=== PATIENT | female | born 1945 | race Caucasian/White ===

== ENCOUNTER → 2017-08-17 | Outpatient (CLI) | payer BC ==
[~2017-08-17] MED LIST: ASPEC81 PO; LISI-461 PO; MULT-506 PO; OMEG10007 PO; SIMV20TA2 PO; TRAM-10 PO
--- NOTE | 2017-08-17 14:59 | MAMMOGRAPHY REPORT ---
BILATERAL DIGITAL SCREENING MAMMOGRAM TOMOSYNTHESIS WITH CAD: 08/17/2017 CLINICAL HISTORY: Routine screening. Patient has no complaints. TECHNIQUE: Breast tomosynthesis in addition to standard 2D mammography was performed. Current study was also evaluated with a Computer Aided Detection (CAD) system. COMPARISON: Comparison is made to exams dated: 05/31/2016 mammogram, 05/04/2015 mammogram, 02/12/2014 ultrasound, 02/12/2014 mammogram, 02/02/2014 mammogram, and 11/12/2012 mammogram - . BREAST COMPOSITION: The tissue of both breasts is heterogeneously dense, which may obscure small mas ses. FINDINGS: No suspicious masses, calcifications, or areas of architectural distortion are noted in ei ther breast. There has been no significant interval change compared to prior exams. Scattered bilater al benign-appearing calcifications are not significantly changed. IMPRESSION: ACR BI-RADS CATEGORY 2: BENIGN There is no mammographic evidence of malignancy. A 1 year screening mammogram is recommended. The pa tient will receive written notification of the results. Approximately 10% of breast cancers are not detected with mammography. A negative mammographic report should not delay biopsy if a clinically suggestive mass is present. Ashwini Thompson M.D. /:08/17/2017 14:20:51 Cad Drafter: Toshia MOSES)(Sirena), letter sent: Normal 1/2 BI-RADS Code: ACR BI-RADS Category 2: Benign
== END | disposition home or self-care (01) ==
LOC: C.MAMM 13:27
PROVIDERS: ATTEND Nurse Practitioner
DX: Z12.31 Encounter for screening mammogram for malignant neoplasm of breast (principal)

== ENCOUNTER → 2017-09-22 | Outpatient (CLI) | payer BC ==
[2017-09-22 10:53] LABS: HEMATOCRIT 45.9 % (37-47); HEMOGLOBIN 14.8 g/dL (12.0-16.0); MEAN CELL VOLUME 94.4 fL (80-100); MEAN CORPUSCULAR HEMOGLOBIN 30.5 pg (25-34); MEAN CORPUSCULAR HGB CONC 32.2 g/dl (32-36); MEAN PLATELET VOLUME 10.5 fL (7.4-10.4); PLATELET COUNT 204 K/uL (130-400); RED CELL DISTRIBUTION WIDTH CV 13.3 % (11.5-14.5); RED CELL DISTRIBUTION WIDTH SD 45.9 fL (36.4-46.3); WHITE BLOOD COUNT 4.84 K/uL (4.8-10.8)
[2017-09-22 11:07] LABS: HEMOGLOBIN A1C 5.5 % (4.5-5.6)
[2017-09-22 11:21] LABS: ALT/SGPT 39 U/L (12-78); AST/SGOT 24 U/L (15-37); BLOOD UREA NITROGEN 15 mg/dl (7-18); CALCIUM 9.3 mg/dl (8.5-10.1); CARBON DIOXIDE 30 mmol/L (21-32); CREATININE 0.76 mg/dl (0.60-1.20); GLUCOSE 83 mg/dl (70-99); POTASSIUM 3.7 mmol/L (3.5-5.1); SODIUM 142 mmol/L (136-145)
[2017-09-22 11:23] LABS: ALKALINE PHOSPHATASE 70 U/L (45-117); CHOLESTEROL 157 mg/dl (0-200); LDL CHOLESTEROL CALCULATED 71 mg/dl; TOTAL PROTEIN 7.7 gm/dl (6.4-8.2)
== END | disposition home or self-care (01) ==
LOC: C.LAB 10:00
PROVIDERS: ATTEND Nurse Practitioner
DX: E78.00 Pure hypercholesterolemia, unspecified (principal); R73.01 Impaired fasting glucose; I10 Essential (primary) hypertension; E55.9 Vitamin D deficiency, unspecified

== ENCOUNTER 2020-07-29 09:52 | Inpatient (IN) ==
[2020-07-29] MEDS ORDERED: ONDANSETRON 4 MG OD TAB PO STA (10:09)
[2020-07-29] MEDS ORDERED: oxyCODONE HCL IR 5 MG TAB (IMMEDIATE RELEASE) PO STA (10:09)
--- NOTE | 2020-07-29 10:14 | Emergency Department Note ---
Impression & Plan Compression fx, thoracic spine, High serum chloride, Acute hypernatremia ED Provider Note NAME: JASEN PATRICK AGE: 75 SEX: F : 1945 ARRIVES VIA: Walk-In INFORMANT: Patient ED PROVIDER(S): Gavin Gaytan DO CHIEF COMPLAINT: Mid back pain HPI: Patient is a 75-year-old female who presents to the ER status post fall 1.5 weeks ago. Patient was walking with her walker and her feet got tripped up and she fell backwards and hit her back. She denies any head or neck pain. No loss consciousness. She denies any blood thinners. She denies any new weakness or numbness in her arms or legs. No chest pain or shortness of breath. She has had no weakness or numbness. She always has pain in her right hip and notes that it is a little bit worse. The back pain is worse with movement. Improves with rest. Currently pain is 5 out of 10 and stabbing. Does not radiate anywhere. She is able to move her bowels and urinate without difficulty. She has been taking some T3s for this pain. ROS: See above HPI for pertinent positives & negatives. A total of 10 systems reviewed and were otherwise negative. PAST MEDICAL HISTORY:See Below PAST SURGICAL HISTORY:See Below FAMILY HISTORY:See Below SOCIAL HISTORY:See Below HOME MEDICATIONS:See Below ALLERGIES:See Below VITALS:See Below PHYSICAL EXAMINATION: GENERAL: Sitting up in bed, alert, well appearing for stated age HEAD: NC/AT EYE EXAM: normal conjunctiva. PERRL and EOM's grossly intact. OROPHARYNX: no exudate, no erythema, lips, buccal mucosa, and tongue normal and mucous membranes are moist NECK: supple, no nuchal rigidity, no adenopathy, non-tender LUNGS: Clear to auscultation. Normal chest wall mechanics HEART: no murmurs, S1 normal and S2 normal ABDOMEN: abdomen soft, non-tender, normo-active bowel sounds, no masses, no rebound or guarding. BACK: Back is symmetrical on inspection and there is no deformity, midline Tenderness at about T8-T10 UPPER EXTREMITIES: upper extremities are grossly normal. LOWER EXTREMITIES: Flexion-extension of bilateral hips knees and ankles intact. Gross sensation intact. NEURO EXAM: Normal sensorium, cranial nerves II-XII grossly intact, normal spee ch, no gross weakness of arms, no gross weakness of legs. MEDICAL DECISION MAKING: Patient is a 75-year-old female who presents the ER for mechanical fall about 1.5 weeks ago. Severe pain in the lower thoracic region. CTs of the thoracic and lumbar spine were obtained and showed compression fracture with retropulsion. She had no head or neck pain. Discussed with Dr. Reynoso from orthopedic spine. Agreed with admission and further evaluation. Patient was updated bedside. Discussed with the hospitalist after obtaining blood work which is a no significant leukocytosis or anemia. BMP with a slightly elevated sodium and chloride slightly elevated at 115. LFTs bilirubin was unremarkable. Covid was negative. Patient was updated bedside admitted for further work-up. Triage Nursing notes reviewed. Limited review of prior medical records performed Vital Signs: reviewed and remarkable for HTN Differential diagnosis: Differential diagnoses include major intracranial, cervical, spinal, thoracic, abdominal, pelvic and neurologic injury. Fracture, contusion, sprain, strain, laceration, abrasions included as well. ER treatment provided: See below Diagnostics interpreted by me: ECG: none Laboratory studies: As stated above in MDM Imaging studies: CT of the thoracic and lumbar spine show compression fracture at T12 with 4 mm retropulsion Consultation(s): Discussed with Dr. Reynoso from orthopedic spine who recommended admission for further work-up Discussed with hospitalist for further evaluation Procedures: none Critical Care: None Past Med/Surg History Medical History (Updated 07/29/20 @ 15:38 by Gavin Gaytan DO) Fall Hypercholesterolemia Hypertension Impaired fasting glucose Mass of soft tissue Parkinsonism Rib pain Right hip pain Thoracic compression fracture Surgical History History of appendectomy History of arthroplasty of left ankle UNSPECIFIED ANKLE History of total abdominal hysterectomy and bilateral salpingo-oophorectomy Family History Sister Uterine cancer Mother Breast cancer Diabetes Father Hx of CABG Denies family history of Ovarian cancer Prostate cancer Myocardial infarction Colorectal cancer Social History Smoking Status: Never smoker Hx Alcohol Use: No Hx Substance Use: No 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: No Beliefs That Will Affect Care: None Current Living Situation: Spouse Feels Safe at Home: Yes caffeine: Yes Seatbelt Use: always Assistive Devices: Denture - Upper, Denture - Lower, Glasses and Walker Allergies Allergies Allergy/AdvReac Type Severity Reaction Status Date / Time morphine AdvReac Severe NAUSEA Verified 07/29/20 11:02 Fish Allergy Severe Nausea Uncoded 07/29/20 11:02 PSEUDAEPHEDRINE Allergy Severe VERY Uncoded 07/29/20 11:02 SHAKEY, JITTERY Actifed Cold/Allergy TABS AdvReac Severe "MAKES ME Uncoded 07/29/20 11:02 CRAZY" Home Meds Home Medications Medication Instructions Recorded Confirmed coenzyme Q10 30 mg capsule 30 mg PO DAILY 12/04/18 07/29/20 multivitamin 1 tab PO DAILY 12/04/18 07/29/20 vitamin B complex 1 tab PO DAILY 12/04/18 07/29/20 ascorbic acid (vitamin C) 500 mg 500 mg PO DAILY tab 01/29/19 07/29/20 tablet cholecalciferol (vitamin D3) 50 2,000 units PO DAILY cap 01/29/19 07/29/20 mcg (2,000 unit) capsule Previous Rx's Medication Instructions Recorded atorvastatin 10 mg tablet 10 mg PO HS #90 tab 06/23/19 escitalopram oxalate 5 mg tablet 5 mg PO HS #30 tab 02/02/20 meloxicam 7.5 mg tablet 7.5 mg PO DAILY PRN #30 tab 03/17/20 carbidopa 25 mg-levodopa 100 mg 1 tab PO TID #90 tab 05/07/20 tablet mirabegron 25 mg tablet,extended 25 mg PO DAILY #90 tab 07/16/20 release 24 hr acetaminophen 300 mg-codeine 30 mg See Rx Instructions PO TID PRN #20 07/21/20 tablet tab ibandronate 150 mg tablet 150 mg PO .COMPLEX #3 tab 07/21/20 Results & Data (ED) Vital Signs Vital Signs - 24 hr 07/29/20 09:57 07/29/20 11:37 07/29/20 13:13 Temperature 36.6 C Temperature Source Oral Pulse Rate 89 Pulse Rate [Left Finger] 87 82 Respiratory Rate 20 20 20 Respiratory Effort / Characteristics Non-Labored Respiratory Depth Normal Blood Pressure 155/90 H Blood Pressure [Right Arm] 174/102 H 153/96 H Blood Pressure Mean 111 Blood Pressure Mean [Right Arm] 126 115 Blood Pressure Position Sitting Pulse Oximetry 97 95 92 Oxygen Delivery Method Room Air Sepsis Recent Fever Within 48 Hours No Sepsis New/Unexplained Change in Mental Status No Sepsis Action Taken by Nursing No Action Required Laboratory Data Result diagrams: 07/29/20 13:11 07/29/20 13:11 Lab Results 07/29/20 07/29/20 07/29/20 Range/Units 13:11 13:11 13:11 WBC 6.16 (4.8-10.8) K/uL RBC 4.19 L (4.2-5.4) M/uL Hgb 12.2 (12.0-16.0) g/dL Hct 38.2 (37-47) % MCV 91.2 (80-100) fL MCH 29.1 (25-34) pg MCHC 31.9 L (32-36) g/dL RDW Std Deviation 47.3 H (36.4-46.3) fL RDW Coeff of Griselda 14.3 (11.5-14.5) % Plt Count 282 (130-400) K/uL MPV 10.0 (7.4-10.4) fL Immature Gran % (Auto) 0.2 % Neut % (Auto) 71.6 % Lymph % (Auto) 17.2 % [place] % (Auto) 8.4 % Eos % (Auto) 1.8 % Baso % (Auto) 0.8 % Neut # (Auto) 4.41 (1.4-6.5) K/uL Lymph # (Auto) 1.06 L (1.2-3.4) K/uL [place] # (Auto) 0.52 (0.11-0.59) K/uL Eos # (Auto) 0.11 (0-0.5) K/uL Baso # (Auto) 0.05 (0-0.2) K/uL Immature Gran # (Auto) 0.01 (0.00-0.02) K/uL Sodium 147 H (136-145) mmol/L Potassium 3.7 (3.5-5.1) mmol/L Chloride 115 H (98-107) mmol/L Carbon Dioxide 29 (21-32) mmol/L Anion Gap 3.0 (3-11) BUN 15 (7-18) mg/dl Creatinine 0.63 (0.6-1.2) mg/dl Est Cr Clr Drug Dosing Not Reportable Est GFR ( Amer) 102.4 Est GFR (Non-Af Amer) 88.4 BUN/Creatinine Ratio 23.8 H (10-20) Glucose 93 (70-99) mg/dl Calcium 8.8 (8.5-10.1) mg/dl Total Bilirubin 0.6 (0.2-1) mg/dl AST 16 (15-37) U/L ALT 8 L (12-78) U/L Alkaline Phosphatase 131 H (45-117) U/L Total Protein 7.2 (6.4-8.2) gm/dl Albumin 3.4 (3.4-5.0) gm/dl Globulin 3.8 (2.5-4.0) gm/dl Albumin/Globulin Ratio 0.9 (0.9-2) COVID-19 Eval [facility] SARS-CoV-2, RNA, NAAT (NEGATIVE) 07/29/20 Range/Units 13:11 WBC (4.8-10.8) K/uL RBC (4.2-5.4) M/uL Hgb (12.0-16.0) g/dL Hct (37-47) % MCV (80-100) fL MCH (25-34) pg MCHC (32-36) g/dL RDW Std Deviation (36.4-46.3) fL RDW Coeff of Griselda (11.5-14.5) % Plt Count (130-400) K/uL MPV (7.4-10.4) fL Immature Gran % (Auto) % Neut % (Auto) % Lymph % (Auto) % [place] % (Auto) % Eos % (Auto) % Baso % (Auto) % Neut # (Auto) (1.4-6.5) K/uL Lymph # (Auto) (1.2-3.4) K/uL [place] # (Auto) (0.11-0.59) K/uL Eos # (Auto) (0-0.5) K/uL Baso # (Auto) (0-0.2) K/uL Immature Gran # (Auto) (0.00-0.02) K/uL Sodium (136-145) mmol/L Potassium (3.5-5.1) mmol/L Chloride (98-107) mmol/L Carbon Dioxide (21-32) mmol/L Anion Gap (3-11) BUN (7-18) mg/dl Creatinine (0.6-1.2) mg/dl Est Cr Clr Drug Dosing Est GFR ( Amer) Est GFR (Non-Af Amer) BUN/Creatinine Ratio (10-20) Glucose (70-99) mg/dl Calcium (8.5-10.1) mg/dl Total Bilirubin (0.2-1) mg/dl AST (15-37) U/L ALT (12-78) U/L Alkaline Phosphatase (45-117) U/L Total Protein (6.4-8.2) gm/dl Albumin (3.4-5.0) gm/dl Globulin (2.5-4.0) gm/dl Albumin/Globulin Ratio (0.9-2) COVID-19 Eval Order SARS-CoV-2, RNA, NAAT NEGATIVE (NEGATIVE) Administered Medications Carbidopa/Levodopa (Carbidopa/Levodopa 25/100mg Tab) 1 tab PO TID ROCK Stop: 08/28/20 14:52 Last Admin: 07/29/20 15:32 Dose: 1 tab Documented by: [id number] Oxycodone/Acetaminophen (Oxycodone/Acetaminophen 5mg/325mg Tab) 1 tab PO Q4H PRN PRN Reason: Pain Stop: 08/12/20 14:52 Last Admin: 07/29/20 15:32 Dose: 1 tab Documented by: [id number] Discontinued Medications Ondansetron HCl (Ondansetron 4 Mg Od Tab) 4 mg PO NOW STA Stop: 07/29/20 10:10 Last Admin: 07/29/20 10:28 Dose: 4 mg Documented by: [id number] Oxycodone HCl (Oxycodone Hcl Ir 5 Mg Tab (Immediate Release)) 5 mg PO NOW STA Stop: 07/29/20 10:10 Last Admin: 07/29/20 10:28 Dose: 5 mg Documented by: [id number] Discharge Plan Visit Data Chief Complaint: Fall Stated Complaint: FALL 10 +DAYS AGO,RT HIP AND BACK PAIN ED Provider: Gavin Gaytan Discharge Problem: Compression fx, thoracic spine, High serum chloride, Acute hypernatremia Patient Disposition: Admitted As Inpatient Discharge Instructions Interventions: ED Discharge Assessment Last Done: 07/29/20 14:35 Discharge Problem: Compression fx, thoracic spine Qualifiers: Encounter type: initial encounter Thoracic vertebra fracture level: T12 Qualified Code(s): S22.080A - Wedge compression fracture of T11-T12 vertebra, initial encounter for closed fracture
--- NOTE | 2020-07-29 11:34 | CT Scan Report ---
CT OF THE THORACIC SPINE CLINICAL HISTORY: mid t pine pain s/p fall COMPARISON STUDY: Thoracic spine radiographs December 12, 2009. TECHNIQUE: Helical axial images of the thoracic spine were obtained. Sagittal and coronal reconstru ctions were viewed. Automated exposure control was utilized for the study. A dose lowering techniqu e was utilized adhering to the principles of ALARA. FINDINGS: There is mild dextroscoliosis of the thoracic spine. Note is made of an acute severe compre ssion fracture of the T12 vertebral body. There is 80% loss of vertebral body height centrally. The p osterior vertebral body cortex is disrupted. 4 mm of retropulsion at the level of the superior endpla te is noted. This results in mild to moderate central canal narrowing. This represents a burst fractu re. There is paravertebral infiltration. Central canal and neural foramen are suboptimally assessed b y CT. No extension into the posterior elements is noted. No additional thoracic spine fractures are n oted. Otherwise, vertebral body heights are maintained. There are trace bilateral pleural effusions. Cardiomegaly is noted. A moderate sized hiatal hernia is incidentally noted. Water attenuation lesion within the upper pole the right kidney is suboptimally assessed on this unenhanced exam but favors a cyst. Please note that the lumbar spine CT will be reported separately. IMPRESSION: 1. Acute severe T12 compression fracture consistent with a burst fracture. 4 mm of retropulsion resul ts in mild to moderate central canal narrowing. Mild paravertebral infiltration. No extension into th e posterior elements. 2. No additional acute thoracic spine fractures. 3. Hiatal hernia. 4. Trace bilateral pleural effusions. ACT 112: Negative or not required by law. Electronically signed by: Mauri Quinn M.D. 07/29/2020 11:33 AM
--- NOTE | 2020-07-29 11:42 | XRay Report ---
XR hip RT 2V w pelvis CLINICAL HISTORY: Fall. COMPARISON: None FINDINGS: The sacroiliac joints and symphysis pubis are intact. There is no acute fracture within th e pelvis or hips. Complete loss of the right hip joint space is noted with extensive subchondral scle rosis and cystic change. There is mild flattening of the right femoral head. IMPRESSION: 1. No acute fracture within the pelvis or hips. 2. Severe right hip osteoarthritis with complete loss of the joint space, extensive subchondral scler osis and mild flattening of the right femoral head. ACT 112: Negative or not required by law. Electronically signed by: Mauri Quinn M.D. 07/29/2020 11:41 AM
--- NOTE | 2020-07-29 12:05 | CT Scan Report ---
CT SCAN OF THE LUMBAR SPINE WITHOUT IV CONTRAST CLINICAL HISTORY: Fall one week ago. Low back pain. COMPARISON STUDY: No priors. TECHNIQUE: CT scan of the lumbar spine is performed from the lower thoracic spine to the sacrum. Imag es are reviewed in the axial, sagittal, and coronal planes. IV contrast was not administered for this examination. A dose lowering technique was utilized adhering to the principles of ALARA. FINDINGS: The skeletal structures are osteopenic. There is no evidence of fracture or malalignment in volving the lumbar spine. There is an acute compression fracture of T12 with [id number] loss of height and fragments retropulsed by up to 5 mm. Vertebral body height is maintained throughout the l umbar spine. There is 9 mm of anterolisthesis at L4-L5 and 7 mm anterolisthesis at L5-S1. Alignment i s otherwise maintained. There is moderate lumbar levocurvature centered at L3. Anterior and lateral m arginal osteophytes are seen throughout. The transverse and spinous processes appear intact. A left-s ided pars defect is noted at L5. No lytic or blastic lesion is seen. Facet arthropathy is noted in th e lower lumbar region. There is advanced disc space narrowing at L4-L5 and L5-S1 with associated endp late sclerosis. Mild to moderate disc space narrowing is seen at the remaining lumbar levels. Posteri or disc osteophyte complexes are seen at L4-L5 and L5-S1. The visualized sacrum and bony pelvis appea r maintained. There is paravertebral edema identified at T12. Fatty atrophy is noted in the paraspino us musculature. A 1 cm cyst is noted in the upper pole of the right kidney. There are small nonobstru cting right renal calculi. The abdominal aorta is normal in caliber noting moderate to advanced ather osclerotic calcification. No retroperitoneal lymphadenopathy is seen. There is a 9 mm right renal art jef aneurysm seen on image #64. IMPRESSION: 1. There is no evidence of fracture or malalignment involving the lumbar spine. 2. There is an acute compression fracture of T12 with [id number] loss of height, retropulsed fr agments, and associated paravertebral edema. 3. Osteopenia with spondylotic change and scoliosis as above. 4. Right-sided nephrolithiasis. 5. 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 ACT 112: Negative or not required by law. Dictated: 07/29/2020 11:21 AM Transcribed: 07/29/2020 11:34 AM Dilia [id number] [email or web address] Electronically signed by: Ulysses Walker M.D. 07/29/2020 12:04 PM
--- NOTE | 2020-07-29 13:09 | History & Physical Report ---
Date of Service July 29, 2020 Assessment & Plan (1) Thoracic compression fracture: Ortho consult - tiered pain control, currently pain 3/10 - bedrest - SCD for VTE until surgical evaluation/plan completed - No radiculopathy or myopathy symptoms. (2) Fall: - PT/OT continue to work with patient when cleared from surgical perspective - Rehab possible. (3) Osteoporosis: Bone density test in Jul - Patient placed back on Boniva, appears to be recenly this month following her most recent dexa scan. - Patient reports compliance - Hydroxy vit d. level pending - continue Boniva - Fall risk protocol - asist with ambulation (4) Right hip pain: Chronic right hip pain. Patient with Physical Therapy as outpatient and has been improving per review. - pain with getting from sitting to standing - has gotten injections in dec 2019 and meloxicam since december - hold meloxicam currently until surgical evaluation completed- hold during pre/intra/post op phase - tiered pain control (5) Vitamin D deficiency: As above, check level and continu replacment - no acute needs (6) Hypercholesterolemia: No acute needs on admission - recheck fasting level in the morning - continue low dose statin, change if needed upon discharge or if risk stratification changes. (7) Parkinsonism: Recently diagnosed in May via neurology, was referred for gait abnormality and evaluation (05/07/2020) - Patient placed on levodopa 25/100 tid. - Patient feels that this is helping her, but at times is unsure because her balance is still off - PT/OT evaluation continue with rehab - Cognitively is very sharp and recall appears to be good, response time is slow. 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 Follow as outpatient with PCP. No acute intervention at this time. History of Present Illness Primary Care Provider: JESSICA Cummings Richa is a 74-year-old female with significant history of chronich rt. hip pain, DJD with osteoperosis and osteoarthritis, parkinson disease, hld, and glucose intolerance. Patient reports to the emergency room today for worsening of her back pain. The patient injured her back 1.5 weeks ago when she was attempting to go from the couch to the bathroom, "got her feet tangled in her walker" and fell backwards. She was prescribed T3 ~late last week for her pain by her PCP. This has helped with her pain but for the past two days, the pain has become "unbearable." The pain is mid to low back, constant stabbing pain. The pain is associated with some tightness and spasm, but without/reported r adiculopathic symptoms. Patient does have chronic right hip pain for the past 2-3 years and says that the hip pain is her normal pain. Patient is enrolled in physical therapy and was being evaluated for hip surgery per her PCP notes. Patient will be admitted for pain control, orthopaedics consult, PT/OT and continued rehab coordination upon discharge. I have spoken with the patient's daughter Kendra as she was on the phone with her during my examination. She would like to be updated once patient is evaluated by orthopaedics for planning. Allergies Allergy/AdvReac Type Severity Reaction Status Date / Time morphine AdvReac Severe NAUSEA Verified 07/29/20 11:02 Fish Allergy Severe Nausea Uncoded 07/29/20 11:02 PSEUDAEPHEDRINE Allergy Severe VERY Uncoded 07/29/20 11:02 SHAKEY, JITTERY Actifed Cold/Allergy TABS AdvReac Severe "MAKES ME Uncoded 07/29/20 11:02 CRAZY" Home Medications Medication Instructions Recorded Confirmed Type coenzyme Q10 30 mg capsule 30 mg PO DAILY 12/04/18 07/29/20 History multivitamin 1 tab PO DAILY 12/04/18 07/29/20 History vitamin B complex 1 tab PO DAILY 12/04/18 07/29/20 History ascorbic acid (vitamin C) 500 mg 500 mg PO DAILY tab 01/29/19 07/29/20 History tablet cholecalciferol (vitamin D3) 50 2,000 units PO DAILY cap 01/29/19 07/29/20 History mcg (2,000 unit) capsule atorvastatin 10 mg tablet 10 mg PO HS #90 tab 06/23/19 07/29/20 Rx escitalopram oxalate 5 mg tablet 5 mg PO HS #30 tab 02/02/20 07/29/20 Rx meloxicam 7.5 mg tablet 7.5 mg PO DAILY PRN #30 tab 03/17/20 07/29/20 Rx carbidopa 25 mg-levodopa 100 mg 1 tab PO TID #90 tab 05/07/20 07/29/20 Rx tablet mirabegron 25 mg tablet,extended 25 mg PO DAILY #90 tab 07/16/20 07/29/20 Rx release 24 hr acetaminophen 300 mg-codeine 30 mg See Rx Instructions PO TID PRN #20 07/21/20 07/29/20 Rx tablet tab ibandronate 150 mg tablet 150 mg PO .COMPLEX #3 tab 07/21/20 07/29/20 Rx Past Med/Surg History Medical History Fall Hypercholesterolemia Hypertension Impaired fasting glucose Mass of soft tissue Parkinsonism Rib pain Right hip pain Thoracic compression fracture Surgical History History of appendectomy History of arthroplasty of left ankle UNSPECIFIED ANKLE History of total abdominal hysterectomy and bilateral salpingo-oophorectomy Family History Sister Uterine cancer Mother Breast cancer Diabetes Father Hx of CABG Denies family history of Ovarian cancer Prostate cancer Myocardial infarction Colorectal cancer Social History Smoking Status: Never smoker Hx Alcohol Use: No Hx Substance Use: No Preferred Language: Korean Communication Ability: Effective Specialty Person Required: No Beliefs That Will Affect Care: None marital status: Current Living Situation: Spouse Feels Safe at Home: Yes caffeine: Yes Seatbelt Use: always Assistive Devices: Denture - Upper, Denture - Lower and Glasses Review of Systems Review of Systems: REVIEW OF SYSTEMS: Constitutional: No fever, sweats or chills Eyes: No diplopia, no worsening or blurred vision ENT: wears glasses, normal hearing, no trouble swallowing Respiratory: No cough, sputum, dyspnea at rest or on exertion Cardiovascular: No chest pain, tightness or palpitations Abdomen: No pain, nausea, vomiting, diarrhea or constipation Musculoskeletal: (+) hip and back pain, No calf pain, swelling Neurologic; (+) weakness and tremors balance problems, No numbness/tingling Psychiatric: No anxiety or depression Skin: No rash or itch Physical Exam Physical Exam: PHYSICAL EXAM: General: awake, alert, no apparent distress, slow in responses and movements. Head: Normocephalic, atraumatic, no lacerations or pain ENT: PERRLA, EOMI, no pharyngeal exudate, mucous membranes moist Neuro: AAO x 3, speech clear and appropriate, strength intact bilaterally 5/5, sensation and temperature intact and equal all extremities, no pronator drift. no pain with straight leg raise. full ROM of neck and hips. Flexion and extension of spine not performed. Babinski normal, no urine retention or incontinence. Chest: equal rise and fall of the chest, no accessory muscle use, no heaves or thrills, Clear to auscultation, on room air, Cardiac: Regular rate and rhythm, skin warm dry, cap refill <3 seconds, peripheral pulses +2 no JVD, no murmur, no JVD, trace edema lower extremities GI: NABS x 4 quadrants, soft, nontender to palpation, no rebound, guarding or tenderness : Spontaneously voiding Extremities: Normal inspection, no peripheral edema or erythema, calfs nontender to palpation Psych: Normal mood and affect Skin: no rash or erythema Results & Data Results & Data ([facility]) Vital Signs (Past 12 Hours) Vital Signs Temp Pulse Pulse Resp BP BP Pulse Ox 07/29/20 11:37 87 20 174/102 H 95 07/29/20 09:57 36.6 C 89 20 155/90 H 97 Laboratory Results Abnormal lab results 07/29/20 Range/Units 13:11 RBC 4.19 L (4.2-5.4) M/uL MCHC 31.9 L (32-36) g/dL RDW Std Deviation 47.3 H (36.4-46.3) fL Lymph # (Auto) 1.06 L (1.2-3.4) K/uL Diagnostic Findings CT OF THE THORACIC SPINE CLINICAL HISTORY: mid t pine pain s/p fall COMPARISON STUDY: Thoracic spine radiographs December 12, 2009. TECHNIQUE: Helical axial images of the thoracic spine were obtained. Sagittal and coronal reconstructions were viewed. Automated exposure control was utilized for the study. A dose lowering technique was utilized adhering to the principles of ALARA. FINDINGS: There is mild dextroscoliosis of the thoracic spine. Note is made of an acute severe compression fracture of the T12 vertebral body. There is 80% loss of vertebral body height centrally. The posterior vertebral body cortex is disrupted. 4 mm of retropulsion at the level of the superior endplate is noted. This results in mild to moderate central canal narrowing. This represents a burst fracture. There is paravertebral infiltration. Central canal and neural foramen are suboptimally assessed by CT. No extension into the posterior elements is noted. No additional thoracic spine fractures are noted. Otherwise, vertebral body heights are maintained. There are trace bilateral pleural effusions. Cardiomegaly is noted. A moderate sized hiatal hernia is incidentally noted. Water attenuation lesion within the upper pole the right kidney is suboptimally assessed on this unenhanced exam but favors a cyst. Please note that the lumbar spine CT will be reported separately. IMPRESSION: 1. Acute severe T12 compression fracture consistent with a burst fracture. 4 mm of retropulsion results in mild to moderate central canal narrowing. Mild paravertebral infiltration. No extension into the posterior elements. 2. No additional acute thoracic spine fractures. 3. Hiatal hernia. 4. Trace bilateral pleural effusions. CT SCAN OF THE LUMBAR SPINE WITHOUT IV CONTRAST CLINICAL HISTORY: Fall one week ago. Low back pain. COMPARISON STUDY: No priors. TECHNIQUE: CT scan of the lumbar spine is performed from the lower thoracic spine to the sacrum. Images are reviewed in the axial, sagittal, and coronal p lanes. IV contrast was not administered for this examination. A dose lowering technique was utilized adhering to the principles of ALARA. FINDINGS: The skeletal structures are osteopenic. There is no evidence of fracture or malalignment involving the lumbar spine. There is an acute compression fracture of T12 with [id number] loss of height and fragments retropulsed by up to 5 mm. Vertebral body height is maintained throughout the lumbar spine. There is 9 mm of anterolisthesis at L4-L5 and 7 mm anterolisthesis at L5-S1. Alignment is otherwise maintained. There is moderate lumbar levocurva ture centered at L3. Anterior and lateral marginal osteophytes are seen throughout. The transverse and spinous processes appear intact. A left-sided pars defect is noted at L5. No lytic or blastic lesion is seen. Facet arthropathy is noted in the lower lumbar region. There is advanced disc space narrowing at L4-L5 and L5-S1 with associated endplate sclerosis. Mild to moderate disc space narrowing is seen at the remaining lumbar levels. Posterior disc osteophyte complexes are seen at L4-L5 and L5-S1. The visualized sacrum and bony pelvis appear maintained. There is paravertebral edema identified at T12. Fatty atrophy is noted in the paraspinous musculature. A 1 cm cyst is noted in the upper pole of the right kidney. There are small nonobstructing right renal calculi. The abdominal aorta is normal in caliber noting moderate to advanced atherosclerotic calcification. No retroperitoneal lymphadenopathy is seen. There is a 9 mm right renal artery aneurysm seen on image #64. IMPRESSION: 1. There is no evidence of fracture or malalignment involving the lumbar spine. 2. There is an acute compression fracture of T12 with [id number] loss of height, retropulsed fragments, and associated paravertebral edema. 3. Osteopenia with spondylotic change and scoliosis as above. 4. Right-sided nephrolithiasis. 5. 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 XR hip RT 2V w pelvis CLINICAL HISTORY: Fall. COMPARISON: None FINDINGS: The sacroiliac joints and symphysis pubis are intact. There is no acute fracture within the pelvis or hips. Complete loss of the right hip joint space is noted with extensive subchondral sclerosis and cystic change. There is mild flattening of the right femoral head. IMPRESSION: 1. No acute fracture within the pelvis or hips. 2. Severe right hip osteoarthritis with complete loss of the joint space, extensive subchondral sclerosis and mild flattening of the right femoral head. Medications Administered Discontinued Medications Ondansetron HCl (Ondansetron 4 Mg Od Tab) 4 mg PO NOW STA Stop: 07/29/20 10:10 Last Admin: 07/29/20 10:28 Dose: 4 mg Documented by: [id number] Oxycodone HCl (Oxycodone Hcl Ir 5 Mg Tab (Immediate Release)) 5 mg PO NOW STA Stop: 07/29/20 10:10 Last Admin: 07/29/20 10:28 Dose: 5 mg Documented by: [id number] ECG Additional Comments: Ordered on admission. Code Status & VTE Plan Code Status SCD Full code Supervising Physician Co-Signing Physician Notes Attending Attestation & Admission Note: Pt seen and examined, chart reviewed, care plan d/w JESSICA Tello Fritzkathyamicah. I agree w/ the aleman components of his documentation. 75yo female with recently dx parkinson's disease, osteoporosis, and HTN presenting with severe back pain x 1-2 weeks after suffering minor fall at home. Also with chronic right hip pain. Upon presentation to the ER today imaging showed severe T12 compression/burst fracture. During my assessment she was resting comfortably. She was modestly confused, asking when she was leaving to go home tonight. PMH/PSH/allergies/meds/sochx/famhx - reviewed VSS, afebrile gen - NAD, mildly confused mouth - MM dry skin - poor turgor heart - RRR, s1 s2 lungs - CTA b/l abd - modestly distended, BS+, NT, no HSM ext - no edema back - tender lower thoracic region segments to palpation neuro - strength hip flexion and ankle dorsiflexion/plantarflexion 5/5 b/l; slight foot drop, however, b/l? labs reviewed Na 147 imaging reviewed A/P: 1. T12 compression/burst fracture - agree w/ plan outlined by Mr Swan; add k-pad heat; add lidoderms -25 vit D level wnl -ortho/spine consultation; nonoperative vs operative management? -pain control no signs of neurological compromise on exam despite severity of this fracture 2. hypernatremia - patient admitted to not drinking well last few days because of pain. Start hypotonic fluids and repeat BMP am. 3. PD - cont sinemet. Soto Lopez MD PG Care Time/CCT Total # of Minutes Spent Total Time Spent with Patient: Total time spent is greater than 50% in coordination of care (as documented) at patient's floor/unit and/or counseling patient: Coding Level of Care Code 33368 Initial Inpt Care Lvl 3 Diagnoses Thoracic compression fracture S22.000A Fall W19.XXXA Encounter type: initial encounter Osteoporosis M81.0 Right hip pain M25.551 Vitamin D deficiency E55.9 Hypercholesterolemia E78.00 Parkinsonism G20 Degenerative joint disease of right hip M16.11 DVT prophylaxis Z29.9 Nephrolithiasis N20.0 Renal artery aneurysm I72.2 (1) Fall Encounter type: initial encounter Qualified Code(s): W19.XXXA - Unspecified fall, initial encounter
[2020-07-29 13:22] LABS: Basophils # (auto) 0.05 K/uL (0-0.2); Basophils % (auto) 0.8 %; Eosinophils # (auto) 0.11 K/uL (0-0.5); Eosinophils % (auto) 1.8 %; Hematocrit (blood only) 38.2 % (37-47); Hemoglobin 12.2 g/dL (12.0-16.0); Immature Granulocytes # (auto) 0.01 K/uL (0.00-0.02); Immature Granulocytes % (auto) 0.2 %; Lymphocytes # (auto) 1.06 K/uL (1.2-3.4); Lymphocytes % (auto) 17.2 %; Mean Corpuscular Hemoglobin 29.1 pg (25-34); Mean Corpuscular Hgb Conc 31.9 g/dL (32-36); Mean Corpuscular Volume 91.2 fL (80-100); Monocytes # (auto) 0.52 K/uL (0.11-0.59); Monocytes % (auto) 8.4 %; Neutrophils # (auto) 4.41 K/uL (1.4-6.5); Neutrophils % (auto) 71.6 %; Platelet Count 282 K/uL (130-400); RDW Coefficient of Variation 14.3 % (11.5-14.5); RDW Standard Deviation 47.3 fL (36.4-46.3); Red Blood Count 4.19 M/uL (4.2-5.4); White Blood Count 6.16 K/uL (4.8-10.8)
[2020-07-29 13:45] LABS: Alanine Aminotransferase 8 U/L (12-78); Albumin Level 3.4 gm/dl (3.4-5.0); Aspartate Aminotransferase 16 U/L (15-37); BUN Creatinine Ratio 23.8 (10-20); Blood Urea Nitrogen 15 mg/dl (7-18); Calcium 8.8 mg/dl (8.5-10.1); Carbon Dioxide 29 mmol/L (21-32); Chloride 115 mmol/L (98-107); Est GFR (African American) 102.4; Est GFR (Non-African American) 88.4; Glucose 93 mg/dl (70-99); Potassium 3.7 mmol/L (3.5-5.1); Sodium 147 mmol/L (136-145)
[2020-07-29 13:48] LABS: Albumin Globulin Ratio 0.9 (0.9-2); Alkaline Phosphatase 131 U/L (45-117); Bilirubin,Total 0.6 mg/dl (0.2-1); Globulin 3.8 gm/dl (2.5-4.0); Total Protein 7.2 gm/dl (6.4-8.2)
[2020-07-29] MEDS ORDERED: HYDROmorphone INJ 0.5 MG/0.5 ML SYR IV PRN (14:53)
[2020-07-29] MEDS ORDERED: NON-FORMULARY MEDICATION (Ibandronate 150 mg tablet) PO SCH (14:53)
[2020-07-29] MEDS: CARBIDOPA/LEVODOPA 25/100MG TAB PO SCH ×2 (15:32→21:05)
[2020-07-29] MEDS: oxyCODONE/ACETAMINOPHEN 5mg/325mg TAB PO PRN (15:32)
--- NOTE | 2020-07-29 17:04 | Electrocardiogram Report ---
Test Reason : Blood Pressure : / mmHG Vent. Rate : 086 BPM Atrial Rate : 086 BPM P-R Int : 154 ms QRS Dur : 084 ms QT Int : 378 ms P-R-T Axes : -01 -12 -05 degrees QTc Int : 452 ms Normal sinus rhythm Voltage criteria for left ventricular hypertrophy Poor R wave progression, consider anterior NJ vs. lead placement vs. LVH Nonspecific T wave abnormality Abnormal ECG When compared with ECG of 09-JUL-2004 07:36, Nonspecific T wave abnormality now evident in Anterior leads Confirmed by Anatoly Cordero ([id number]) on 07/29/2020 5:04:01 PM Referred By: REFERRED SELF Confirmed By:Bryce Cordero
[2020-07-29] MEDS: D5W AND 1/2NSS + 20MEQ KCL 20 MEQ/1,000 ML BAG IV SCH (21:03)
[2020-07-29] MEDS: ATORVASTATIN 10 MG TAB PO SCH (21:04)
[2020-07-29] MEDS: ESCITALOPRAM OXALATE 10 MG TAB PO SCH (21:05)
[2020-07-30 06:35] LABS: Basophils # (auto) 0.02 K/uL (0-0.2); Basophils % (auto) 0.4 %; Eosinophils # (auto) 0.16 K/uL (0-0.5); Eosinophils % (auto) 2.9 %; Hematocrit (blood only) 36.7 % (37-47); Hemoglobin 11.5 g/dL (12.0-16.0); Immature Granulocytes # (auto) 0.01 K/uL (0.00-0.02); Immature Granulocytes % (auto) 0.2 %; Lymphocytes # (auto) 1.14 K/uL (1.2-3.4); Lymphocytes % (auto) 20.6 %; Mean Corpuscular Hemoglobin 28.6 pg (25-34); Mean Corpuscular Hgb Conc 31.3 g/dL (32-36); Mean Corpuscular Volume 91.3 fL (80-100); Mean Platelet Volume 10.2 fL (7.4-10.4); Monocytes # (auto) 0.47 K/uL (0.11-0.59); Monocytes % (auto) 8.5 %; Neutrophils # (auto) 3.74 K/uL (1.4-6.5); Neutrophils % (auto) 67.4 %; Platelet Count 273 K/uL (130-400); RDW Coefficient of Variation 14.2 % (11.5-14.5); RDW Standard Deviation 47.3 fL (36.4-46.3); Red Blood Count 4.02 M/uL (4.2-5.4); White Blood Count 5.54 K/uL (4.8-10.8)
[2020-07-30 06:42] LABS: Estimated Average Glucose 103 mg/dl; Hemoglobin A1C 5.2 % (4.5-5.6)
[2020-07-30 07:03] LABS: Calcium 9.1 mg/dl (8.5-10.1); Creatinine Clr Calc Pharmacy 61.8 ml/min; Est GFR (African American) 100.4; Est GFR (Non-African American) 86.6; Magnesium 2.5 mg/dl (1.8-2.4); Potassium 3.8 mmol/L (3.5-5.1)
[2020-07-30] MEDS: CARBIDOPA/LEVODOPA 25/100MG TAB PO SCH ×3 (07:44→19:49)
[2020-07-30] MEDS: CHOLECALCIFEROL 1,000 UNITS 25 MCG TAB PO SCH (07:44)
[2020-07-30] MEDS: VITAMIN B COMPLEX TAB PO SCH (07:45)
[2020-07-30] MEDS: MULTIVITAMIN TAB PO SCH (07:45)
[2020-07-30] MEDS: ASCORBIC ACID 500 MG TAB PO SCH (07:45)
[2020-07-30] MEDS: MIRABEGRON ER 25 MG TAB PO SCH (07:45)
[2020-07-30] MEDS: D5W AND 1/2NSS + 20MEQ KCL 20 MEQ/1,000 ML BAG IV SCH (09:47)
[2020-07-30] MEDS ORDERED: LORazepam 0.5 MG TAB PO STA (10:45)
--- NOTE | 2020-07-30 10:52 | Orthopedic Consultation ---
Date of Consultation July 30, 2020 Assessment & Plan (1) Thoracic compression fracture: This time she is being fitted for TLSO brace. This is reasonable when she begins ambulation and transfers. If she fails to note improvement in her symptoms over the next day or so we may consider kyphoplasty. I will follow her throughout the weekend. Present on Admission?: Yes History of Present Illness Reason for Consultation: T12 compression fracture Attending Physician: Jd Xie MD History of Present Illness This is a very pleasant 75-year-old female that presents with T12 compression fracture. Today she feels her pain is relatively well controlled though she d oes describe symptoms rating around her rib cage. She denies any leg pain. Denies any numbness and tingling at this time. Allergies Allergy/AdvReac Type Severity Reaction Status Date / Time morphine AdvReac Severe NAUSEA Verified 07/29/20 11:02 Fish Allergy Severe Nausea Uncoded 07/29/20 11:02 PSEUDAEPHEDRINE Allergy Severe VERY Uncoded 07/29/20 11:02 SHAKEY, JITTERY Actifed Cold/Allergy TABS AdvReac Severe "MAKES ME Uncoded 07/29/20 11:02 CRAZY" Home Medications Medication Instructions Recorded Confirmed Type coenzyme Q10 30 mg capsule 30 mg PO DAILY 12/04/18 07/29/20 History multivitamin 1 tab PO DAILY 12/04/18 07/29/20 History vitamin B complex 1 tab PO DAILY 12/04/18 07/29/20 History ascorbic acid (vitamin C) 500 mg 500 mg PO DAILY tab 01/29/19 07/29/20 History tablet cholecalciferol (vitamin D3) 50 2,000 units PO DAILY cap 01/29/19 07/29/20 History mcg (2,000 unit) capsule atorvastatin 10 mg tablet 10 mg PO HS #90 tab 06/23/19 07/29/20 Rx escitalopram oxalate 5 mg tablet 5 mg PO HS #30 tab 02/02/20 07/29/20 Rx meloxicam 7.5 mg tablet 7.5 mg PO DAILY PRN #30 tab 03/17/20 07/29/20 Rx carbidopa 25 mg-levodopa 100 mg 1 tab PO TID #90 tab 05/07/20 07/29/20 Rx tablet mirabegron 25 mg tablet,extended 25 mg PO DAILY #90 tab 07/16/20 07/29/20 Rx release 24 hr acetaminophen 300 mg-codeine 30 mg See Rx Instructions PO TID PRN #20 07/21/20 07/29/20 Rx tablet tab ibandronate 150 mg tablet 150 mg PO .COMPLEX #3 tab 07/21/20 07/29/20 Rx Patient History Medical History Fall Hypercholesterolemia Hypertension Impaired fasting glucose Mass of soft tissue Parkinsonism Rib pain Right hip pain Thoracic compression fracture Surgical History History of appendectomy History of arthroplasty of left ankle UNSPECIFIED ANKLE History of total abdominal hysterectomy and bilateral salpingo-oophorectomy Family History Sister Uterine cancer Mother Breast cancer Diabetes Father Hx of CABG Denies family history of Ovarian cancer Prostate cancer Myocardial infarction Colorectal cancer Social History Smoking Status: Never smoker Hx Alcohol Use: No Hx Substance Use: No Preferred Language: Malay Communication Ability: Effective 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 She is comfortable in a supine position. Results & Data ([facility]) Vital Signs (Past 12 Hours) Vital Signs Temp Pulse Resp BP BP Pulse Ox 07/30/20 10:29 106 H 22 138/71 94 07/30/20 07:02 37.1 C 84 18 136/74 94 07/29/20 23:57 36.6 C 86 16 126/76 93
--- NOTE | 2020-07-30 13:02 | Electrocardiogram Report ---
Test Reason : Blood Pressure : / mmHG Vent. Rate : 097 BPM Atrial Rate : 097 BPM P-R Int : 152 ms QRS Dur : 072 ms QT Int : 346 ms P-R-T Axes : 026 -08 008 degrees QTc Int : 439 ms Poor data quality, interpretation may be adversely affected Normal sinus rhythm Minimal voltage criteria for LVH, may be normal variant Nonspecific ST abnormality Abnormal ECG When compared with ECG of 29-JUL-2020 15:07, Minimal criteria for Anterior infarct are now Present Confirmed by Anatoly Cordero ([id number]) on 07/30/2020 1:02:48 PM Referred By: REFERRED SELF Confirmed By:Bryce Cordero
--- NOTE | 2020-07-30 14:20 | Hospitalist Progress Note ---
Date of Service July 30, 2020 Assessment & Plan (1) Thoracic compression fracture: Ortho consult -- conservative management Pain control -- added tramadol, lidocaine patch. Would avoid oxycodone given increased confusion PT/OT consults ordered and pending DVT proph -- SCDs. Added Lovenox SQ Possible rehab at discharge Vit D level low -- continue replacement Labs in AM (2) Fall: Mechanical PT/OT ordered Urine culture pending r/o UTI given confusion, although no white count or fever, dysuria reported (3) Osteoporosis: Bone density test in Jul Patient placed back on Boniva, appears to be recenly this month following her most recent dexa scan. Vit D level low 34.6 (prior 35.06 Jul 2018) Continue supplementation Fall precautions PT/OT evals with possible rehab at d/c (4) Right hip pain: Chronic right hip pain. Patient with Physical Therapy as outpatient and has been improving per review. - pain with getting from sitting to standing - has gotten injections in dec 2019 and meloxicam since december - pain control as above (5) Vitamin D deficiency: As above -- continue replacement (6) Hypercholesterolemia: Continue atorvastatin (7) Parkinsonism: Recently diagnosed in May via neurology, was referred for gait abnor mality and evaluation (05/07/2020) - Patient placed on levodopa 25/100 tid. - Patient feels that this is helping her, but at times is unsure because her balance is still off - PT/OT evaluation continue with rehab - Follow up after hospitalization for possible dose increase if needed for movement/balance Consider addition of aricept given memory issues, although possible related to pain medicaitons (8) Degenerative joint disease of right hip: As above - Orthopedics consult is in place for compression/burst fracture of t 12 - tiered pain control as above Will consult Dr. 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 Follow as outpatient with PCP. No acute intervention at this time. (11) DVT prophylaxis: SCD's Added Lovenox SQ Dispo; continued inpatient stay Admission and Anticipated Discharge Date Admission Date: July 29, 2020 Subjective Patient evaluated this afternoon. States her pain is the best it has been since the fall. Recently started on Vit D replacement earlier this month although does appear to have some confusion. Was medication and possible confusion d/t this. Pain controlled with ordered medications and discussed lower doses to prevent confusion in addidion to lidocaine patch. Orthopedics was in to see her this morning and they have opted for medical management at htis time. No fever, chills, chest pain, shortness of breath, abdominal pain, nausea or vomiting at this time. Tremor to b/l LE chronic. Recently started on levodopa by Neurology for Parkinson as well. Review of Systems Review of Systems: All systems reviewed & are unremarkable except as noted in HPI & below Physical Exam Constitutional: well developed and comfortable; no acute distress Eyes: + anicteric sclerae and PERRL ENMT: Ears: no hearing impairment Neck: normal visual inspection Respiratory: normal respiratory effort, lungs clear to auscultation Cardiovascular: RRR, no murmur, no edema Gastrointestinal (Abdomen): normal bowel sounds, soft, nontender, no hepatosplenomegaly Musculoskeletal: tender to palpation over thoracic spine as well as paraspinal tenderness Skin: warm, dry Neurologic: moves all extremities and awake Psychiatric: Orientation: alert, oriented to person and oriented to place; + not oriented to time (states it is 2001/2002) Genitourinary: NO alejandro Results & Data Results & Data ([facility]) Vital Signs (Past 12 Hours) Vital Signs Temp Pulse Resp BP BP Pulse Ox 07/30/20 10:29 106 H 22 138/71 94 07/30/20 07:02 37.1 C 84 18 136/74 94 Laboratory Results 07/30/20 07/30/20 07/30/20 Range/Units 11:56 08:02 05:49 WBC (4.8-10.8) K/uL RBC (4.2-5.4) M/uL Hgb (12.0-16.0) g/dL Hct (37-47) % MCV (80-100) fL MCH (25-34) pg MCHC (32-36) g/dL RDW Std Deviation (36.4-46.3) fL RDW Coeff of Griselda (11.5-14.5) % Plt Count (130-400) K/uL MPV (7.4-10.4) fL Immature Gran % (Auto) % Neut % (Auto) % Lymph % (Auto) % [place] % (Auto) % Eos % (Auto) % Baso % (Auto) % Neut # (Auto) (1.4-6.5) K/uL Lymph # (Auto) (1.2-3.4) K/uL [place] # (Auto) (0.11-0.59) K/uL Eos # (Auto) (0-0.5) K/uL Baso # (Auto) (0-0.2) K/uL Immature Gran # (Auto) (0.00-0.02) K/uL Sodium (136-145) mmol/L Potassium (3.5-5.1) mmol/L Chloride (98-107) mmol/L Carbon Dioxide (21-32) mmol/L Anion Gap (3-11) BUN (7-18) mg/dl Creatinine (0.6-1.2) mg/dl Est Cr Clr Drug Dosing ml/min Est GFR ( Amer) Est GFR (Non-Af Amer) BUN/Creatinine Ratio (10-20) Glucose (70-99) mg/dl POC Glucose 107 H 107 H (70-99) mg/dl Estimat Average Glucose mg/dl Hemoglobin A1c (4.5-5.6) % Calcium (8.5-10.1) mg/dl Magnesium (1.8-2.4) mg/dl Troponin I (0-0.045) ng/ml 25-OH Vitamin D Total (30-100) ng/ml TSH 0.781 (0.300-4.500) uIu/ml 07/30/20 07/30/20 07/30/20 Range/Units 05:49 05:49 05:49 WBC (4.8-10.8) K/uL RBC (4.2-5.4) M/uL Hgb (12.0-16.0) g/dL Hct (37-47) % MCV (80-100) fL MCH (25-34) pg MCHC (32-36) g/dL RDW Std Deviation (36.4-46.3) fL RDW Coeff of Griselda (11.5-14.5) % Plt Count (130-400) K/uL MPV (7.4-10.4) fL Immature Gran % (Auto) % Neut % (Auto) % Lymph % (Auto) % [place] % (Auto) % Eos % (Auto) % Baso % (Auto) % Neut # (Auto) (1.4-6.5) K/uL Lymph # (Auto) (1.2-3.4) K/uL [place] # (Auto) (0.11-0.59) K/uL Eos # (Auto) (0-0.5) K/uL Baso # (Auto) (0-0.2) K/uL Immature Gran # (Auto) (0.00-0.02) K/uL Sodium 144 (136-145) mmol/L Potassium 3.8 (3.5-5.1) mmol/L Chloride 112 H (98-107) mmol/L Carbon Dioxide 25 (21-32) mmol/L Anion Gap 7.0 (3-11) BUN 13 (7-18) mg/dl Creatinine 0.67 (0.6-1.2) mg/dl Est Cr Clr Drug Dosing 61.8 ml/min Est GFR ( Amer) 100.4 Est GFR (Non-Af Amer) 86.6 BUN/Creatinine Ratio 19.0 (10-20) Glucose 98 (70-99) mg/dl POC Glucose (70-99) mg/dl Estimat Average Glucose 103 mg/dl Hemoglobin A1c 5.2 (4.5-5.6) % Calcium 9.1 (8.5-10.1) mg/dl Magnesium 2.5 H (1.8-2.4) mg/dl Troponin I < 0.015 (0-0.045) ng/ml 25-OH Vitamin D Total (30-100) ng/ml TSH (0.300-4.500) uIu/ml 07/30/20 07/29/20 07/29/20 Range/Units 05:49 20:36 18:16 WBC 5.54 (4.8-10.8) K/uL RBC 4.02 L (4.2-5.4) M/uL Hgb 11.5 L (12.0-16.0) g/dL Hct 36.7 L (37-47) % MCV 91.3 (80-100) fL MCH 28.6 (25-34) pg MCHC 31.3 L (32-36) g/dL RDW Std Deviation 47.3 H (36.4-46.3) fL RDW Coeff of Griselda 14.2 (11.5-14.5) % Plt Count 273 (130-400) K/uL MPV 10.2 (7.4-10.4) fL Immature Gran % (Auto) 0.2 % Neut % (Auto) 67.4 % Lymph % (Auto) 20.6 % [place] % (Auto) 8.5 % Eos % (Auto) 2.9 % Baso % (Auto) 0.4 % Neut # (Auto) 3.74 (1.4-6.5) K/uL Lymph # (Auto) 1.14 L (1.2-3.4) K/uL [place] # (Auto) 0.47 (0.11-0.59) K/uL Eos # (Auto) 0.16 (0-0.5) K/uL Baso # (Auto) 0.02 (0-0.2) K/uL Immature Gran # (Auto) 0.01 (0.00-0.02) K/uL Sodium (136-145) mmol/L Potassium (3.5-5.1) mmol/L Chloride (98-107) mmol/L Carbon Dioxide (21-32) mmol/L Anion Gap (3-11) BUN (7-18) mg/dl Creatinine (0.6-1.2) mg/dl Est Cr Clr Drug Dosing ml/min Est GFR ( Amer) Est GFR (Non-Af Amer) BUN/Creatinine Ratio (10-20) Glucose (70-99) mg/dl POC Glucose 111 H 96 (70-99) mg/dl Estimat Average Glucose mg/dl Hemoglobin A1c (4.5-5.6) % Calcium (8.5-10.1) mg/dl Magnesium (1.8-2.4) mg/dl Troponin I (0-0.045) ng/ml 25-OH Vitamin D Total (30-100) ng/ml TSH (0.300-4.500) uIu/ml 07/29/20 07/29/20 Range/Units 15:27 13:11 WBC (4.8-10.8) K/uL RBC (4.2-5.4) M/uL Hgb (12.0-16.0) g/dL Hct (37-47) % MCV (80-100) fL MCH (25-34) pg MCHC (32-36) g/dL RDW Std Deviation (36.4-46.3) fL RDW Coeff of Griselda (11.5-14.5) % Plt Count (130-400) K/uL MPV (7.4-10.4) fL Immature Gran % (Auto) % Neut % (Auto) % Lymph % (Auto) % [place] % (Auto) % Eos % (Auto) % Baso % (Auto) % Neut # (Auto) (1.4-6.5) K/uL Lymph # (Auto) (1.2-3.4) K/uL [place] # (Auto) (0.11-0.59) K/uL Eos # (Auto) (0-0.5) K/uL Baso # (Auto) (0-0.2) K/uL Immature Gran # (Auto) (0.00-0.02) K/uL Sodium (136-145) mmol/L Potassium (3.5-5.1) mmol/L Chloride (98-107) mmol/L Carbon Dioxide (21-32) mmol/L Anion Gap (3-11) BUN (7-18) mg/dl Creatinine (0.6-1.2) mg/dl Est Cr Clr Drug Dosing ml/min Est GFR ( Amer) Est GFR (Non-Af Amer) BUN/Creatinine Ratio (10-20) Glucose (70-99) mg/dl POC Glucose 100 H (70-99) mg/dl Estimat Average Glucose mg/dl Hemoglobin A1c (4.5-5.6) % Calcium (8.5-10.1) mg/dl Magnesium (1.8-2.4) mg/dl Troponin I (0-0.045) ng/ml 25-OH Vitamin D Total 34.6 (30-100) ng/ml TSH (0.300-4.500) uIu/ml PG Care Time/CCT Total # of Minutes Spent Total Time Spent with Patient: Total time spent is greater than 50% in coordination of care (as documented) at patient's floor/unit and/or counseling patient: Coding Level of Care Code 45452 Subseq Hosp Care Lvl 3 Diagnoses Thoracic compression fracture S22.000A Fall W19.XXXA Encounter type: initial encounter Osteoporosis M81.0 Right hip pain M25.551 Vitamin D deficiency E55.9 Hypercholesterolemia E78.00 Parkinsonism G20 Degenerative joint disease of right hip M16.11 Nephrolithiasis N20.0 Renal artery aneurysm I72.2 DVT prophylaxis Z29.9 (1) Fall Encounter type: initial encounter Qualified Code(s): W19.XXXA - Unspecified fall, initial encounter
[2020-07-30] MEDS: traMADol HCL 50 MG TABLET PO PRN ×2 (14:23→19:48)
[2020-07-30] MEDS: LIDOCAINE 5% 1 PATCH TD SCH (15:04)
[2020-07-30] MEDS ORDERED: PROPRANOLOL HCL 60 MG LA CAP PO SCH (15:15)
[2020-07-30] MEDS: ENOXAPARIN INJ 30 MG/0.3 ML SYR SQ SCH (16:30)
[2020-07-30] MEDS: POLYETHYLENE (MIRALAX) 17 GM PACK PO SCH (17:12)
[2020-07-30 17:20] LABS: Appearance Urine Cloudy (Clear); Bacteria Urine Automated 4+ (Negative); Bilirubin Urine Negative (Negative); Blood Urine Negative (Negative); Color Urine Dark Yellow; Epithelial Cell Urine Auto >30 /lpf (0-5); Glucose Urine UA Negative (Negative); Ketones Urine Trace (Negative); Leukocyte Esterase Urine Trace (Negative); Nitrite Urine Positive (Negative); Protein Urine Negative (Negative); Specific Gravity Urine 1.021 (1.000-1.030); Urobilinogen Urine Positive (Negative)
--- NOTE | 2020-07-30 18:26 | Orthopedic Consultation ---
Date of Service July 30, 2020 Assessment & Plan (1) Osteoarthritis of right hip: After reviewing the records and Dr. Garcia's note from January,, options for treatment of the right hip pain are extremely limited. Dr. Garcia did offer a right total hip arthroplasty at the last visit, and she was to think it over with her family and medical doctors. I spoke with the patient's today by telephone. He stated that a previous fluoroscopic guided hip injection had been performed last year but demonstrated very little benefit. I discussed that were dealing with severe arthritis and our goal is pain management. She is a candidate for total hip replacement for any predictable relief of this hip. He said he will discuss this when she gets home from this hospitalization with the other family members in if they decide to proceed, they will contact our office. Options for current management of pain while admitted are limited to medications. Please contact with further questions. History of Present Illness Reason for Consultation: Right hip pain Requesting Physician: . Attending Physician: Jd Xie MD 75-year-old female was admitted with worsening pain and thoracic spine compression fracture. The admitting team also reports is that of worsening of her right hip pain. She has been a patient of the [facility] practice before and as of her last visit in January,, she was offered right total hip arthroplasty. Allergies Allergy/AdvReac Type Severity Reaction Status Date / Time morphine AdvReac Severe NAUSEA Verified 07/29/20 11:02 Fish Allergy Severe Nausea Uncoded 07/29/20 11:02 PSEUDAEPHEDRINE Allergy Severe VERY Uncoded 07/29/20 11:02 SHAKEY, JITTERY Actifed Cold/Allergy TABS AdvReac Severe "MAKES ME Uncoded 07/29/20 11:02 CRAZY" Home Medications Medication Instructions Recorded Confirmed Type coenzyme Q10 30 mg capsule 30 mg PO DAILY 12/04/18 07/29/20 History multivitamin 1 tab PO DAILY 12/04/18 07/29/20 History vitamin B complex 1 tab PO DAILY 12/04/18 07/29/20 History ascorbic acid (vitamin C) 500 mg 500 mg PO DAILY tab 01/29/19 07/29/20 History tablet cholecalciferol (vitamin D3) 50 2,000 units PO DAILY cap 01/29/19 07/29/20 History mcg (2,000 unit) capsule atorvastatin 10 mg tablet 10 mg PO HS #90 tab 06/23/19 07/29/20 Rx escitalopram oxalate 5 mg tablet 5 mg PO HS #30 tab 02/02/20 07/29/20 Rx meloxicam 7.5 mg tablet 7.5 mg PO DAILY PRN #30 tab 03/17/20 07/29/20 Rx carbidopa 25 mg-levodopa 100 mg 1 tab PO TID #90 tab 05/07/20 07/29/20 Rx tablet mirabegron 25 mg tablet,extended 25 mg PO DAILY #90 tab 07/16/20 07/29/20 Rx release 24 hr acetaminophen 300 mg-codeine 30 mg See Rx Instructions PO TID PRN #20 07/21/20 07/29/20 Rx tablet tab ibandronate 150 mg tablet 150 mg PO .COMPLEX #3 tab 07/21/20 07/29/20 Rx Past Med/Surg History Medical History Fall Hypercholesterolemia Hypertension Impaired fasting glucose Mass of soft tissue Parkinsonism Rib pain Right hip pain Thoracic compression fracture Surgical History History of appendectomy History of arthroplasty of left ankle UNSPECIFIED ANKLE History of total abdominal hysterectomy and bilateral salpingo-oophorectomy Family History Sister Uterine cancer Mother Breast cancer Diabetes Father Hx of CABG Denies family history of Ovarian cancer Prostate cancer Myocardial infarction Colorectal cancer Social History Smoking Status: Never smoker Hx Alcohol Use: No Hx Substance Use: No Preferred Language: Estonian Communication Ability: Effective [employer]aster Required: No Beliefs That Will Affect Care: None marital status: Current Living Situation: Spouse Feels Safe at Home: Yes caffeine: Yes Seatbelt Use: always Assistive Devices: Denture - Upper, Denture - Lower and Glasses Review of Systems All systems reviewed & are unremarkable except as noted in HPI & below. Physical Exam Physical exam was limited by patient's participation. She was arousable but minimally communicative. This was confirmed a stable per the nurses this morning. Right lower extremity: She is full active range of motion her ankle. She had no discomfort apparent with logroll. She can perform a gentle straight leg raise but limited by participation effort. No evidence of trauma about the right hip. Constitutional well developed, well nourished, + altered mental status and comfortable; no acute distress and not intoxicated appearing ENMT external ear and nose normal, oropharynx normal Respiratory normal respiratory effort; no respiratory distress Cardiovascular Extremities: normal capillary refill; no edema Skin no rashes, warm and dry Psychiatric Orientation: oriented to place Eye Contact: + fair eye contact Affect: + flat affect Results & Data Results & Data Laboratory Results . H & H 07/29/20 07/30/20 Range/Units 13:11 05:49 Hgb 12.2 11.5 L (12.0-16.0) g/dL Hct 38.2 36.7 L (37-47) % Diagnostic Findings Radiographs obtained on 07/29/2020 were reviewed. These include hip and pelvis x-rays. 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 PG Care Time/CCT Total # of Minutes Spent Total Time Spent with Patient: Total time spent is greater than 50% in coordination of care (as documented) at patient's floor/unit and/or counseling patient: Coding Level of Care Code 81114 Inpt Consult Level 3 Diagnoses Osteoarthritis of right hip M16.11
[2020-07-30 18:51] LABS: Albumin Level 3.2 gm/dl (3.4-5.0); Bilirubin Direct 0.2 mg/dl (0-0.2); Bilirubin,Total 0.5 mg/dl (0.2-1); Total Protein 6.6 gm/dl (6.4-8.2)
[2020-07-30] MEDS: DOCUSATE SODIUM 100 MG CAP PO SCH (19:49)
[2020-07-30] MEDS: ATORVASTATIN 10 MG TAB PO SCH (19:49)
[2020-07-30] MEDS: ESCITALOPRAM OXALATE 10 MG TAB PO SCH (19:49)
[2020-07-30] MEDS: oxyCODONE/ACETAMINOPHEN 5mg/325mg TAB PO PRN (23:09)
[2020-07-31 05:54] LABS: Basophils # (auto) 0.05 K/uL (0-0.2); Basophils % (auto) 0.8 %; Eosinophils # (auto) 0.18 K/uL (0-0.5); Eosinophils % (auto) 2.8 %; Hematocrit (blood only) 35.4 % (37-47); Immature Granulocytes # (auto) 0.01 K/uL (0.00-0.02); Immature Granulocytes % (auto) 0.2 %; Lymphocytes # (auto) 1.24 K/uL (1.2-3.4); Lymphocytes % (auto) 19.6 %; Mean Corpuscular Hemoglobin 28.4 pg (25-34); Mean Corpuscular Hgb Conc 31.1 g/dL (32-36); Mean Corpuscular Volume 91.2 fL (80-100); Monocytes # (auto) 0.69 K/uL (0.11-0.59); Monocytes % (auto) 10.9 %; Neutrophils # (auto) 4.15 K/uL (1.4-6.5); Neutrophils % (auto) 65.7 %; Platelet Count 276 K/uL (130-400); RDW Coefficient of Variation 14.2 % (11.5-14.5); RDW Standard Deviation 46.6 fL (36.4-46.3); Red Blood Count 3.88 M/uL (4.2-5.4); White Blood Count 6.32 K/uL (4.8-10.8)
[2020-07-31 06:07] LABS: INR 1.1 (0.9-1.1); Prothrombin Time 11.9 Seconds (9.0-12.0)
[2020-07-31 06:22] LABS: BUN Creatinine Ratio 18.5 (10-20); Calcium 9.3 mg/dl (8.5-10.1); Creatinine Clr Calc Pharmacy 51.8 ml/min; Est GFR (African American) 84.2; Est GFR (Non-African American) 72.6; Magnesium 2.5 mg/dl (1.8-2.4); Potassium 3.9 mmol/L (3.5-5.1)
--- NOTE | 2020-07-31 08:41 | Ultrasound Report ---
US gallbladder CLINICAL HISTORY: Elevated alkaline phosphatase. Abdominal pain. COMPARISON STUDY: No previous studies for comparison. FINDINGS: The pancreas was not visualized. No focal hepatic masses were visualized. There is no ducta l dilatation. There are no gallstones. There is no gallbladder wall thickening. There is no perichole cystic fluid. The common bile duct measures 3 mm. There is no right-sided hydronephrosis. There is a 23 mm upper pole right renal cyst. The cyst was minimally complex with low level echoes. The study was somewhat limited from a technical standpoint. The patient was unable to move into the d ecubitus position. IMPRESSION: 1. Ultrasonographically normal gallbladder. No ductal dilatation 2. Nondiagnostic evaluation of the pancreas. ACT 112: Negative or not required by law. Electronically signed by: Damián Dorantes M.D. 07/31/2020 8:40 AM
--- NOTE | 2020-07-31 09:04 | Neurology Consultation ---
Date of Consultation July 31, 2020 Assessment & Plan (1) Parkinsonism: (2) Encephalopathy: I agree with Dr. Winston's assessment of this patient. 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 She does not have classic Parkinson's disease. She is currently encephalopathic and exhibiting some associated irregular myoclonic jerking of the limbs. She is able to voluntarily attended to different stimuli and respond to commands and I do not think she is having seizures. I believe her altered mental status and myoclonus is related to the combination of pain medications she has received recently including tramadol, hydromorphone, and oxycodone in the context of her thoracic spine burst fracture. I would not recommend adjusting this patient's dosage of Sinemet at this point in time. I do not believe a larger dosage of Sinemet would specifically improve her ambulatory or balance as queried. I would not recommend starting a cholinesterase inhibitor or cognitive enhancer during this patient's hospitalization and acute encephalopathy. A trial of donepezil or rivastigmine could be considered as an outpatient depending on her status going forward. I agree with discontinuation of tramadol. I would also suggest discontinuing or significantly reducing use of oxycodone or hydromorphone for pain control in this patient. I would also recommend completion of a CT of the head to exclude hemorrhage or other acute process in light of her altered mental status and recent fall at home. History of Present Illness Reason for Consultation: Parkinson's disease, worsening cognition Requesting Physician: Hayley Rojas PA-C Attending Physician: Jd Xie MD History of Present Illness The patient is a 75-year-old female who began following with Dr. Winston in neurology clinic in May 2019 for parkinsonism and mild cognitive impairment. Patient's clinical characteristics at that time included concerns regarding cognitive functioning, vivid dreaming, visual hallucinations, depression, soft-spoken speech, small illegible handwriting, difficulty bathing and dressing, and falls. She had performed poorly on a bedside cognitive screening test (SLUMS), 19 out of 30. She was noted to have subtle cogwheel rigidity, mild tremor, and relatively brisk deep tendon reflexes. Her gait had previously been noted to be slow and stooped. Previous testing included a brain MRI done June 06, 2019 that revealed mild atrophy and chronic cerebrovascular disease. Imaging not suggestive of normal pressure hydrocephalus. A cervical spine MRI was completed at that time as well and revealed multilevel degenerative disc disease without significant central canal stenosis. No spinal cord signal abnormality was identified. I reviewed the images as well as the radiologist's interpretation of these tests. The patient was last evaluated by Dr. Winston on May 07, 2020. At that time, her diagnosis was felt to be most likely either Lewy body dementia versus Parkinson's plus syndrome or cortical basal degeneration. Her memory was felt to have improved after stopping tramadol. She had been started on Sinemet in December 2019 and was instructed to continue with this medication. The patient had a follow-up appointment with her primary care provider on June 16, 2020. Issues at that time included her parkinsonism, urge stress incontinence, osteoporosis, chronic right hip pain due to osteoarthritis, and hypertension. It looks like the patient has been considering undergoing right total hip arthroplasty. The patient presented to the emergency department yesterday as a walk-in for further evaluation and management of mid back pain. She had reported a fall 1- 1/2 weeks ago while utilizing her walker. Her feet apparently got tripped up and she fell backwards, and hit her back. She did not report any new weakness or numbness but had complained of back pain that is worse with movement as well as her chronic right hip pain. The back pain did not radiate anywhere. No difficulty with bowel or bladder function reported. She was found to have an acute T12 compression fracture with 4 mm of retropulsion resulting in mild to moderate central canal narrowing. She has been evaluated by orthopedic surgery during this hospitalization. There is a consideration for kyphoplasty if her symptoms fail to improve over the next few days. The hospitalist service has noted this patient's history of parkinsonism. The patient had remarked that she felt as if her Sinemet has been helpful although her balance remains poor. There was some consideration as to whether or not she would need to have her Sinemet dosage increased and/or possibly add Aricept to her medication regimen to address ongoing memory issues. This morning, the patient continues to display an altered mental status. Her attention is poor. She exhibits periodic irregular jerking movements of the limbs. Allergies Allergy/AdvReac Type Severity Reaction Status Date / Time morphine AdvReac Severe NAUSEA Verified 07/29/20 11:02 Fish Allergy Severe Nausea Uncoded 07/29/20 11:02 PSEUDAEPHEDRINE Allergy Severe VERY Uncoded 07/29/20 11:02 SHAKEY, JITTERY Actifed Cold/Allergy TABS AdvReac Severe "MAKES ME Uncoded 07/29/20 11:02 CRAZY" Home Medications Medication Instructions Recorded Confirmed Type coenzyme Q10 30 mg capsule 30 mg PO DAILY 12/04/18 07/29/20 History multivitamin 1 tab PO DAILY 12/04/18 07/29/20 History vitamin B complex 1 tab PO DAILY 12/04/18 07/29/20 History ascorbic acid (vitamin C) 500 mg 500 mg PO DAILY tab 01/29/19 07/29/20 History tablet cholecalciferol (vitamin D3) 50 2,000 units PO DAILY cap 01/29/19 07/29/20 History mcg (2,000 unit) capsule atorvastatin 10 mg tablet 10 mg PO HS #90 tab 06/23/19 07/29/20 Rx escitalopram oxalate 5 mg tablet 5 mg PO HS #30 tab 02/02/20 07/29/20 Rx meloxicam 7.5 mg tablet 7.5 mg PO DAILY PRN #30 tab 03/17/20 07/29/20 Rx carbidopa 25 mg-levodopa 100 mg 1 tab PO TID #90 tab 05/07/20 07/29/20 Rx tablet mirabegron 25 mg tablet,extended 25 mg PO DAILY #90 tab 07/16/20 07/29/20 Rx release 24 hr acetaminophen 300 mg-codeine 30 mg See Rx Instructions PO TID PRN #20 07/21/20 07/29/20 Rx tablet tab ibandronate 150 mg tablet 150 mg PO .COMPLEX #3 tab 07/21/20 07/29/20 Rx Patient History Medical History Fall Hypercholesterolemia Hypertension Impaired fasting glucose Mass of soft tissue Parkinsonism Rib pain Right hip pain Thoracic compression fracture Surgical History History of appendectomy History of arthroplasty of left ankle UNSPECIFIED ANKLE History of total abdominal hysterectomy and bilateral salpingo-oophorectomy Family History Sister Uterine cancer Mother Breast cancer Diabetes Father Hx of CABG Denies family history of Ovarian cancer Prostate cancer Myocardial infarction Colorectal cancer Social History Smoking Status: Never smoker Hx Alcohol Use: No Hx Substance Use: No Preferred Language: Yoruba Communication Ability: Effective Laboratory Coordinator Required: No Beliefs That Will Affect Care: None marital status: Current Living Situation: Spouse Feels Safe at Home: Yes caffeine: Yes Seatbelt Use: always Assistive Devices: Denture - Upper, Denture - Lower and Glasses Review of Systems Review of Systems: Unobtainable due to cognitive status Exam (Neuro) Neurologic: Oriented to:: Person; negative Place and Time Memory: negative Short Term Intact and Remote Intact Attention: negative Span Intact and Concentration Intact Speech Fluency: Dysarthria and Slowed Fund of Knowledge: Vocabulary; negative Current Events and Past History Cranial Nerves: Normal II, III, IV, , V, VII, VIII, IX, X, XI and XII Motor Strength: negative Normal Lower Extremities and Normal Upper Extremities Motor Tone: Generalized Hypotonicity Muscle Bulk/Involuntary Movements: Rest Tremor (Arm) Deep Tendon Reflexes: Rt Triceps: 3+, Lt Triceps: 3+, Rt Biceps: 3+, Lt Biceps: 3+, Rt Brachioradialis: 3+, Lt Brachioradialis: 3+, Rt Patellar: 3+, Lt Patellar: 3+, Rt Ankle: 3+ and Lt Ankle: 3+ Special Tests: Babinski Present Details: Sensation, coordination, and gait cannot be tested in the context of patient's altered mental status. Results & Data ([facility]) Vital Signs (Past 12 Hours) Vital Signs Temp Pulse Pulse Resp BP BP Pulse Ox 07/31/20 07:56 37.2 C 70 16 109/56 L 93 07/30/20 22:58 36.4 C L 86 16 154/77 H 91 Laboratory Results WBC 6.32, hemoglobin 11.0, hematocrit 35.4, platelet count 276, sodium 145, potassium 3.9, BUN 15, creatinine 0.80, glucose 90, calcium 9.3, magnesium 2.5, AST 22, ALT 9, troponin less than 0.015 Diagnostic Findings Imaging of the brain completed in June 2019 described in the history of present illness. CT of the thoracic spine is as described in the history of present illness. Electrocardiogram reveals a normal sinus rhythm, 97 bpm. PG Care Time/CCT Total # of Minutes Spent Total Time Spent with Patient: Total time spent is greater than 50% in coordination of care (as documented) at patient's floor/unit and/or counseling patient: 70 minutes Coding Level of Care Code 20157 Initial Inpt Care Lvl 3 Diagnoses Parkinsonism G20 Encephalopathy G93.40
--- NOTE | 2020-07-31 09:33 | Hospitalist Progress Note ---
Date of Service July 31, 2020 Assessment & Plan (1) Fall: * multifactorial -- hx parkinsonism, and newly found E. Coli UTI Ortho consult -- conservative management for thoracic compression fracture Dr. Clarke consulted for R hip -- family will plan for discussion outpatient and likely proceeding with intervention for severe OA Pain control -- added tramadol, lidocaine patch. --> discontinue tramadol (per family, patient gets "loopy"), and discontinue oxycodone/tramadol IVF for now as patient increasingly lethargic after pain medications last evening and low urine output -- improving No reported back pain at present Orthotics consulted for brace -- will place on with therapy as pain medications wear off (she got PO and IV Dilaudid evening 07/30-07/31 for pain/agitation and had subsequent encephalopathy) PT/OT consults with rec for rehab --> Given new E.Coli UTI, will continue to have PT/OT work with patient as we treat infection to see if she can make progress enough for home with home health until possible R hip repair with subsequent rehab at discharge and family would like to avoid rehab x 2 Vit D low and placed on replacement - continue at discharge DVT proph -- SCDs, Lovenox (2) Thoracic compression fracture: Ortho consult -- conservative management Pain control -- added tramadol, lidocaine patch. --> discontinue tramadol (per family, patient gets "loopy"), and discontinue oxycodone/tramadol No report back pain at present Orthotics consulted for brace -- will place on with therapy as pain medications wear off (she got PO and IV Dilaudid evening 07/30-07/31 for pain/agitation and had subsequent encephalopathy) Tylenol as needed, lidocaine patch PT/OT consults with rec for rehab --> Given new E.Coli UTI, will continue to have PT/OT work with patient for [facility] home health at d/c. Discussed with CM this weekend (3) E. coli UTI: likely cause for current fall (in addition to R hip OA) Placed on Ceftriaxone for now Urine culture with E.coli, sensitivities pending (4) Osteoporosis: Bone density test in Jul Patient placed back on Boniva, appears to be recenly this month following her most recent dexa scan. Vit D level low 34.6 (prior 35.06 Jul 2018) Continue supplementation Fall precautions PT/OT evals with possible rehab at d/c (5) Right hip pain: Chronic right hip pain. Patient with Physical Therapy as outpatient and has been improving per review. - pain with getting from sitting to standing - has gotten injections in dec 2019 and meloxicam since december - pain control as above Ortho consulted -- plans for possible outpatient f/u and intervention (6) Vitamin D deficiency: As above -- continue replacement (7) Hypercholesterolemia: Continue atorvastatin (8) Parkinsonism: Recently diagnosed in May via neurology, was referred for gait abn ormality and evaluation (05/07/2020) - Patient placed on levodopa 25/100 tid. - Patient feels that this is helping her, but at times is unsure because her balance is still off - PT/OT evaluation continue with rehab - Follow up after hospitalization for possible dose increase if needed for movement/balance Neurology consulted CT Head negative for acute process No changes to current medications Follow up outpatient (9) Degenerative joint disease of right hip: As above - Orthopedics consult is in place for compression/burst fracture of t 12 - tiered pain control as above Consult as above (10) Nephrolithiasis: Incidental findings, non obstructive - No acute needs - incidental renal cyst noted as well (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 Follow as outpatient with PCP. No acute intervention at this time. (12) DVT prophylaxis: SCD's Added Lovenox SQ Dispo; continued inpatient stay Admission and Anticipated Discharge Date Admission Date: July 29, 2020 Subjective Patient evaluated this morning. Received oxycodone and IV dilaudid for reported pain and agitation overnight and is extremely somnolent. Not awake enough to take pills just yet, but is answering short questions currently. Denies pain at this time, but easily falling back asleep and not able to answer further ROS. Per discussion with nursing, will continue to avoid tramadol/opioid analgesics and could consider muscle relaxant if needed and continue with tylenol. Pain had been most severe in R hip last evening, as this seems to be her primary complaint despite significant fracture. Urine results with e.coli and starting abx. Discussed with and daughter on the phone this afternoon. They would ideally like for patient to return home with therapy and will consider having R hip repair in upcoming weeks. Discussed UTI and may be cause of lack of appetite and ultimately led to fall. Now that we are treating her urinary tract infection, we will need to continue to have therapy work with her while inpatient and if she is able to make progre ss with treating her infection, could consider home health at discharge but will continue to monitor progress over the next 24-48 hours now that infection to be treated. They were able to FaceTime patient this afternoon and were extremely grateful. They express wishes for current plan given confusion in unfamiliar environment. Review of Systems Review of Systems: All systems reviewed & are unremarkable except as noted in HPI & below, Unobtainable due to cognitive status and Unobtainable due to reduced consciousness Physical Exam Constitutional: well developed and comfortable; no acute distress Eyes: + anicteric sclerae and PERRL ENMT: Ears: no hearing impairment Neck: normal visual inspection Respiratory: normal respiratory effort, lungs clear to auscultation Cardiovascular: RRR, no murmur, no edema Gastrointestinal (Abdomen): normal bowel sounds, soft, nontender, no hepatosplenomegaly Musculoskeletal: not completed due to reduced consciousness Skin: warm, dry Neurologic: moves all extremities and awake Psychiatric: Orientation: alert (to stimuli); + not oriented x 3 Lymphatic: no cervical or axillary lymphadenopathy Results & Data Results & Data ([facility]) Vital Signs (Past 12 Hours) Vital Signs Temp Pulse Pulse Resp BP BP Pulse Ox 07/31/20 07:56 37.2 C 70 16 109/56 L 93 07/30/20 22:58 36.4 C L 86 16 154/77 H 91 Laboratory Results 07/31/20 07/31/20 07/31/20 Range/Units 08:34 05:34 05:34 WBC 6.32 (4.8-10.8) K/uL RBC 3.88 L (4.2-5.4) M/uL Hgb 11.0 L (12.0-16.0) g/dL Hct 35.4 L (37-47) % MCV 91.2 (80-100) fL MCH 28.4 (25-34) pg MCHC 31.1 L (32-36) g/dL RDW Std Deviation 46.6 H (36.4-46.3) fL RDW Coeff of Griselda 14.2 (11.5-14.5) % Plt Count 276 (130-400) K/uL MPV 10.0 (7.4-10.4) fL Immature Gran % (Auto) 0.2 % Neut % (Auto) 65.7 % Lymph % (Auto) 19.6 % [place] % (Auto) 10.9 % Eos % (Auto) 2.8 % Baso % (Auto) 0.8 % Neut # (Auto) 4.15 (1.4-6.5) K/uL Lymph # (Auto) 1.24 (1.2-3.4) K/uL [place] # (Auto) 0.69 H (0.11-0.59) K/uL Eos # (Auto) 0.18 (0-0.5) K/uL Baso # (Auto) 0.05 (0-0.2) K/uL Immature Gran # (Auto) 0.01 (0.00-0.02) K/uL PT (9.0-12.0) Seconds INR (0.9-1.1) Sodium 145 (136-145) mmol/L Potassium 3.9 (3.5-5.1) mmol/L Chloride 114 H (98-107) mmol/L Carbon Dioxide 26 (21-32) mmol/L Anion Gap 5.0 (3-11) BUN 15 (7-18) mg/dl Creatinine 0.80 (0.6-1.2) mg/dl Est Cr Clr Drug Dosing 51.8 ml/min Est GFR ( Amer) 84.2 Est GFR (Non-Af Amer) 72.6 BUN/Creatinine Ratio 18.5 (10-20) Glucose 90 (70-99) mg/dl POC Glucose 94 (70-99) mg/dl Calcium 9.3 (8.5-10.1) mg/dl Magnesium 2.5 H (1.8-2.4) mg/dl Total Bilirubin (0.2-1) mg/dl Direct Bilirubin (0-0.2) mg/dl AST (15-37) U/L ALT (12-78) U/L Alkaline Phosphatase (45-117) U/L Troponin I (0-0.045) ng/ml Total Protein (6.4-8.2) gm/dl Albumin (3.4-5.0) gm/dl TSH (0.300-4.500) uIu/ml Urine Color Urine Appearance (Clear) Urine pH (4.5-7.5) Ur Specific [place] (1.000-1.030) Urine Protein (Negative) Urine Glucose (UA) (Negative) Urine Ketones (Negative) Urine Blood (Negative) Urine Nitrite (Negative) Urine Bilirubin (Negative) Urine Urobilinogen (Negative) Ur Leukocyte Esterase (Negative) Urine WBC (Auto) (0-5) /hpf Urine RBC (Auto) (0-4) /hpf U Hyaline Cast (Auto) (0-5) /lpf U Epithel Cells (Auto) (0-5) /lpf Urine Bacteria (Auto) (Negative) 07/31/20 07/30/20 07/30/20 Range/Units 05:34 20:28 18:22 WBC (4.8-10.8) K/uL RBC (4.2-5.4) M/uL Hgb (12.0-16.0) g/dL Hct (37-47) % MCV (80-100) fL MCH (25-34) pg MCHC (32-36) g/dL RDW Std Deviation (36.4-46.3) fL RDW Coeff of Griselda (11.5-14.5) % Plt Count (130-400) K/uL MPV (7.4-10.4) fL Immature Gran % (Auto) % Neut % (Auto) % Lymph % (Auto) % [place] % (Auto) % Eos % (Auto) % Baso % (Auto) % Neut # (Auto) (1.4-6.5) K/uL Lymph # (Auto) (1.2-3.4) K/uL [place] # (Auto) (0.11-0.59) K/uL Eos # (Auto) (0-0.5) K/uL Baso # (Auto) (0-0.2) K/uL Immature Gran # (Auto) (0.00-0.02) K/uL PT 11.9 (9.0-12.0) Seconds INR 1.1 (0.9-1.1) Sodium (136-145) mmol/L Potassium (3.5-5.1) mmol/L Chloride (98-107) mmol/L Carbon Dioxide (21-32) mmol/L Anion Gap (3-11) BUN (7-18) mg/dl Creatinine (0.6-1.2) mg/dl Est Cr Clr Drug Dosing ml/min Est GFR ( Amer) Est GFR (Non-Af Amer) BUN/Creatinine Ratio (10-20) Glucose (70-99) mg/dl POC Glucose 129 H (70-99) mg/dl Calcium (8.5-10.1) mg/dl Magnesium (1.8-2.4) mg/dl Total Bilirubin 0.5 (0.2-1) mg/dl Direct Bilirubin 0.2 (0-0.2) mg/dl AST 22 (15-37) U/L ALT 9 L (12-78) U/L Alkaline Phosphatase 122 H (45-117) U/L Troponin I (0-0.045) ng/ml Total Protein 6.6 (6.4-8.2) gm/dl Albumin 3.2 L (3.4-5.0) gm/dl TSH (0.300-4.500) uIu/ml Urine Color Urine Appearance (Clear) Urine pH (4.5-7.5) Ur Specific [place] (1.000-1.030) Urine Protein (Negative) Urine Glucose (UA) (Negative) Urine Ketones (Negative) Urine Blood (Negative) Urine Nitrite (Negative) Urine Bilirubin (Negative) Urine Urobilinogen (Negative) Ur Leukocyte Esterase (Negative) Urine WBC (Auto) (0-5) /hpf Urine RBC (Auto) (0-4) /hpf U Hyaline Cast (Auto) (0-5) /lpf U Epithel Cells (Auto) (0-5) /lpf Urine Bacteria (Auto) (Negative) 07/30/20 07/30/20 07/30/20 Range/Units 17:26 16:30 11:56 WBC (4.8-10.8) K/uL RBC (4.2-5.4) M/uL Hgb (12.0-16.0) g/dL Hct (37-47) % MCV (80-100) fL MCH (25-34) pg MCHC (32-36) g/dL RDW Std Deviation (36.4-46.3) fL RDW Coeff of Griselda (11.5-14.5) % Plt Count (130-400) K/uL MPV (7.4-10.4) fL Immature Gran % (Auto) % Neut % (Auto) % Lymph % (Auto) % [place] % (Auto) % Eos % (Auto) % Baso % (Auto) % Neut # (Auto) (1.4-6.5) K/uL Lymph # (Auto) (1.2-3.4) K/uL [place] # (Auto) (0.11-0.59) K/uL Eos # (Auto) (0-0.5) K/uL Baso # (Auto) (0-0.2) K/uL Immature Gran # (Auto) (0.00-0.02) K/uL PT (9.0-12.0) Seconds INR (0.9-1.1) Sodium (136-145) mmol/L Potassium (3.5-5.1) mmol/L Chloride (98-107) mmol/L Carbon Dioxide (21-32) mmol/L Anion Gap (3-11) BUN (7-18) mg/dl Creatinine (0.6-1.2) mg/dl Est Cr Clr Drug Dosing ml/min Est GFR ( Amer) Est GFR (Non-Af Amer) BUN/Creatinine Ratio (10-20) Glucose (70-99) mg/dl POC Glucose 110 H 107 H (70-99) mg/dl Calcium (8.5-10.1) mg/dl Magnesium (1.8-2.4) mg/dl Total Bilirubin (0.2-1) mg/dl Direct Bilirubin (0-0.2) mg/dl AST (15-37) U/L ALT (12-78) U/L Alkaline Phosphatase (45-117) U/L Troponin I (0-0.045) ng/ml Total Protein (6.4-8.2) gm/dl Albumin (3.4-5.0) gm/dl TSH (0.300-4.500) uIu/ml Urine Color Dark Yellow Urine Appearance Cloudy A (Clear) Urine pH 7.0 (4.5-7.5) Ur Specific [place] 1.021 (1.000-1.030) Urine Protein Negative (Negative) Urine Glucose (UA) Negative (Negative) Urine Ketones Trace H (Negative) Urine Blood Negative (Negative) Urine Nitrite Positive A (Negative) Urine Bilirubin Negative (Negative) Urine Urobilinogen Positive H (Negative) Ur Leukocyte Esterase Trace H (Negative) Urine WBC (Auto) 5-10 H (0-5) /hpf Urine RBC (Auto) 5-10 H (0-4) /hpf U Hyaline Cast (Auto) 1-5 (0-5) /lpf U Epithel Cells (Auto) >30 H (0-5) /lpf Urine Bacteria (Auto) 4+ H (Negative) 07/30/20 07/30/20 Range/Units 05:49 05:49 WBC (4.8-10.8) K/uL RBC (4.2-5.4) M/uL Hgb (12.0-16.0) g/dL Hct (37-47) % MCV (80-100) fL MCH (25-34) pg MCHC (32-36) g/dL RDW Std Deviation (36.4-46.3) fL RDW Coeff of Griselda (11.5-14.5) % Plt Count (130-400) K/uL MPV (7.4-10.4) fL Immature Gran % (Auto) % Neut % (Auto) % Lymph % (Auto) % [place] % (Auto) % Eos % (Auto) % Baso % (Auto) % Neut # (Auto) (1.4-6.5) K/uL Lymph # (Auto) (1.2-3.4) K/uL [place] # (Auto) (0.11-0.59) K/uL Eos # (Auto) (0-0.5) K/uL Baso # (Auto) (0-0.2) K/uL Immature Gran # (Auto) (0.00-0.02) K/uL PT (9.0-12.0) Seconds INR (0.9-1.1) Sodium (136-145) mmol/L Potassium (3.5-5.1) mmol/L Chloride (98-107) mmol/L Carbon Dioxide (21-32) mmol/L Anion Gap (3-11) BUN (7-18) mg/dl Creatinine (0.6-1.2) mg/dl Est Cr Clr Drug Dosing ml/min Est GFR ( Amer) Est GFR (Non-Af Amer) BUN/Creatinine Ratio (10-20) Glucose (70-99) mg/dl POC Glucose (70-99) mg/dl Calcium (8.5-10.1) mg/dl Magnesium (1.8-2.4) mg/dl Total Bilirubin (0.2-1) mg/dl Direct Bilirubin (0-0.2) mg/dl AST (15-37) U/L ALT (12-78) U/L Alkaline Phosphatase (45-117) U/L Troponin I < 0.015 (0-0.045) ng/ml Total Protein (6.4-8.2) gm/dl Albumin (3.4-5.0) gm/dl TSH 0.781 (0.300-4.500) uIu/ml Urine Color Urine Appearance (Clear) Urine pH (4.5-7.5) Ur Specific [place] (1.000-1.030) Urine Protein (Negative) Urine Glucose (UA) (Negative) Urine Ketones (Negative) Urine Blood (Negative) Urine Nitrite (Negative) Urine Bilirubin (Negative) Urine Urobilinogen (Negative) Ur Leukocyte Esterase (Negative) Urine WBC (Auto) (0-5) /hpf Urine RBC (Auto) (0-4) /hpf U Hyaline Cast (Auto) (0-5) /lpf U Epithel Cells (Auto) (0-5) /lpf Urine Bacteria (Auto) (Negative) PG Care Time/CCT Total # of Minutes Spent Total Time Spent with Patient: Total time spent is greater than 50% in coordination of care (as documented) at patient's floor/unit and/or counseling patient: Coding Level of Care Code 95458 Subseq Hosp Care Lvl 3 Diagnoses Fall W19.XXXA Encounter type: initial encounter Thoracic compression fracture S22.000A E. coli UTI N39.0; B96.20 Osteoporosis M81.0 Right hip pain M25.551 Vitamin D deficiency E55.9 Hypercholesterolemia E78.00 Parkinsonism G20 Degenerative joint disease of right hip M16.11 Nephrolithiasis N20.0 Renal artery aneurysm I72.2 DVT prophylaxis Z29.9 (1) Fall Encounter type: initial encounter Qualified Code(s): W19.XXXA - Unspecified fall, initial encounter
[2020-07-31] MEDS: SODIUM CHLORIDE 0.9% 1000ML 1,000 ML IV SCH ×2 (10:12→20:11)
[2020-07-31] MEDS: DOCUSATE SODIUM 100 MG CAP PO SCH ×2 (11:52→20:09)
[2020-07-31] MEDS: MULTIVITAMIN TAB PO SCH (11:54)
[2020-07-31] MEDS: MIRABEGRON ER 25 MG TAB PO SCH (11:54)
[2020-07-31] MEDS: CARBIDOPA/LEVODOPA 25/100MG TAB PO SCH ×3 (11:54→20:09)
[2020-07-31] MEDS: CHOLECALCIFEROL 1,000 UNITS 25 MCG TAB PO SCH (11:54)
[2020-07-31] MEDS: VITAMIN B COMPLEX TAB PO SCH (11:54)
[2020-07-31] MEDS: POLYETHYLENE (MIRALAX) 17 GM PACK PO SCH (11:54)
[2020-07-31] MEDS: ASCORBIC ACID 500 MG TAB PO SCH (11:54)
[2020-07-31] MEDS: ENOXAPARIN INJ 30 MG/0.3 ML SYR SQ SCH (11:58)
[2020-07-31] MEDS: LIDOCAINE 5% 1 PATCH TD SCH (11:59)
--- NOTE | 2020-07-31 12:29 | CT Scan Report ---
CT head/brain wo con CLINICAL HISTORY: Altered mental status, fall at home 1.5 weeks ago COMPARISON STUDY: MRI the brain dated 06/06/2019 TECHNIQUE: Axial CT of the brain is performed from the vertex to the skull base. IV contrast was not administered for this examination. A dose lowering technique was utilized adhering to the principles of ALARA. CT DOSE: 767.83 mGy.cm FINDINGS: No intra or extra-axial mass lesions are visualized. There is no CT evidence of acute cortical infarc tion. There is no evidence of midline shift. There is no acute hemorrhage. No calvarial fractures ar e visualized. There are interval white matter hypodensities likely on a small vessel basis. There is no evidence of pathologic ventricular dilatation. There is no evidence of acute sinusitis IMPRESSION: No acute intracranial findings ACT 112: Negative or not required by law. Electronically signed by: Damián Dorantes M.D. 07/31/2020 12:28 PM
[2020-07-31] MEDS ORDERED: bisacodyL 5 MG TABEC PO ONE (14:25)
[2020-07-31] MEDS: cefTRIAXone SODIUM 1,000 MG in DEXTROSE 5% 50 ML IV SCH (14:41)
[2020-07-31] MEDS ORDERED: SOD PHOSPHATE/SOD BIPHOSPHATE ENEMA 132 ML BTL PR PRN (18:09)
[2020-07-31] MEDS: ATORVASTATIN 10 MG TAB PO SCH (20:09)
[2020-07-31] MEDS: ESCITALOPRAM OXALATE 10 MG TAB PO SCH (20:09)
[2020-08-01] MEDS: SODIUM CHLORIDE 0.9% 1000ML 1,000 ML IV SCH (05:34)
[2020-08-01 07:26] LABS: Basophils # (auto) 0.03 K/uL (0-0.2); Basophils % (auto) 0.6 %; Eosinophils # (auto) 0.13 K/uL (0-0.5); Eosinophils % (auto) 2.4 %; Hematocrit (blood only) 36.1 % (37-47); Hemoglobin 11.4 g/dL (12.0-16.0); Immature Granulocytes # (auto) 0.02 K/uL (0.00-0.02); Immature Granulocytes % (auto) 0.4 %; Lymphocytes # (auto) 1.03 K/uL (1.2-3.4); Lymphocytes % (auto) 19.4 %; Mean Corpuscular Hemoglobin 28.6 pg (25-34); Mean Corpuscular Hgb Conc 31.6 g/dL (32-36); Mean Corpuscular Volume 90.5 fL (80-100); Monocytes # (auto) 0.46 K/uL (0.11-0.59); Monocytes % (auto) 8.7 %; Neutrophils # (auto) 3.64 K/uL (1.4-6.5); Neutrophils % (auto) 68.5 %; Platelet Count 241 K/uL (130-400); RDW Standard Deviation 45.5 fL (36.4-46.3); Red Blood Count 3.99 M/uL (4.2-5.4); White Blood Count 5.31 K/uL (4.8-10.8)
[2020-08-01] MEDS: CARBIDOPA/LEVODOPA 25/100MG TAB PO SCH ×3 (07:39→20:30)
[2020-08-01] MEDS: ENOXAPARIN INJ 30 MG/0.3 ML SYR SQ SCH (07:39)
[2020-08-01] MEDS: DOCUSATE SODIUM 100 MG CAP PO SCH ×2 (07:40→20:30)
[2020-08-01] MEDS: POLYETHYLENE (MIRALAX) 17 GM PACK PO SCH (07:40)
[2020-08-01] MEDS: LIDOCAINE 5% 1 PATCH TD SCH (07:40)
[2020-08-01] MEDS: CHOLECALCIFEROL 1,000 UNITS 25 MCG TAB PO SCH (07:41)
[2020-08-01] MEDS: ASCORBIC ACID 500 MG TAB PO SCH (07:41)
[2020-08-01] MEDS: MIRABEGRON ER 25 MG TAB PO SCH (07:41)
[2020-08-01] MEDS: MULTIVITAMIN TAB PO SCH (07:41)
[2020-08-01] MEDS: VITAMIN B COMPLEX TAB PO SCH (07:42)
[2020-08-01 08:04] LABS: Calcium 8.5 mg/dl (8.5-10.1); Creatinine Clr Calc Pharmacy 79.7 ml/min; Est GFR (African American) 109.1; Est GFR (Non-African American) 94.1; Magnesium 2.4 mg/dl (1.8-2.4); Potassium 3.3 mmol/L (3.5-5.1)
--- NOTE | 2020-08-01 08:49 | Hospitalist Progress Note ---
Date of Service August 01, 2020 Assessment & Plan (1) Fall: * multifactorial -- hx parkinsonism, and newly found E. Coli UTI Ortho consult -- conservative management for thoracic compression fracture Dr. Clarke consulted for R hip -- family will plan for discussion outpatient and likely proceeding with intervention for severe OA Pain control -- added tramadol, lidocaine patch. --> discontinue tramadol (per family, patient gets "loopy"), and discontinue oxycodone/tramadol IVF for now as patient increasingly lethargic after pain medications last evening and low urine output -- improving No reported back pain at present Orthotics consulted for brace -- will place on with therapy as pain medications wear off (she got PO and IV Dilaudid evening 07/30-07/31 for pain/agitation and had subsequent encephalopathy) --> RESOLVED CONFUSION Vit D low and placed on replacement - continue at discharge DVT proph -- SCDs, Lovenox PT/OT consults with rec for rehab however patient and family would like home with home therapy while awaiting discussion about hip repair as she will need rehab following that and they would like to avoid rehab x 2 Given drastic improvement of confusion with treatment for UTI (E.coli, pansensitive), will continue PT/OT with possible d/c home in next 1-2 days with therapy and fmaily support (2) Thoracic compression fracture: Ortho consult -- conservative management Pain control -- added tramadol, lidocaine patch. --> discontinued tramadol (per family, patient gets "loopy"), and discontinued oxycodone/tramadol No report back pain at present Orthotics consulted for brace -- will place on with therapy as pain medications wear off (she got PO and IV Dilaudid evening 07/30-07/31 for pain/agitation and had subsequent encephalopathy) Tylenol as needed, lidocaine patch Added zanaflex which seems to help with pain control -- consider continuing at discharge PT/OT consults with rec for rehab --> Given new E.Coli UTI, will continue to have PT/OT work with patient for hopes home health at d/c. Discussed with CM this weekend (3) E. coli UTI: likely cause for current fall (in addition to R hip OA) Placed on Ceftriaxone for now Urine culture with E.coli, pansensitive Will continue IV for now and can switch to Keflex in AM (4) Osteoporosis: Bone density test in Jul Patient placed back on Boniva, appears to be recenly this month following her most recent dexa scan. Vit D level low 34.6 (prior 35.06 Jul 2018) Continue supplementation Fall precautions PT/OT evals with possible rehab at d/c. See above (5) Right hip pain: Chronic right hip pain. Patient with Physical Therapy as outpatient and has been improving per review. - pain with getting from sitting to standing - has gotten injections in dec 2019 and meloxicam since december - pain control as above Ortho consulted -- plans for possible outpatient f/u and intervention (6) Vitamin D deficiency: As above -- continue replacement (7) Hypercholesterolemia: Continue atorvastatin (8) Parkinsonism: Recently diagnosed in May via neurology, was referred for gait abnormality and evaluation (05/07/2020) - Patient placed on levodopa 25/100 tid. - Patient feels that this is helping her, but at times is unsure because her balance is still off - PT/OT to continue while inpatient - Follow up after hospitalization for possible dose increase if needed for movement/balance Neurology consulted CT Head negative for acute process No changes to current medications Follow up outpatient (9) Degenerative joint disease of right hip: As above - Orthopedics consult is in place for compression/burst fracture of t 12 - pain control as above Consult as above (10) Nephrolithiasis: Incidental findings, non obstructive - No acute needs - incidental renal cyst noted as well (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 Tamara alaniz as outpatient with PCP. No acute intervention at this time. (12) DVT prophylaxis: SCD's Added Lovenox SQ Hypernatremia/Hypokalemia Place on 1/2NSS + 20k for 1L today for Na 146 and repeat chemistries in AM Constipation -- deals with chronically -- bowel regimen ordered -- LARGE BM reported -- continue regimen to keep regular as this tends to worsen her confusion per family Dispo; continued inpatient stay possible d/c in next 1-2 days with home PT/OT and family support Admission and Anticipated Discharge Date Admission Date: July 29, 2020 Subjective Patient evaluated this morning. Much more alert/oriented. Got Zanaflex this morning for pain and she states this is well controlled. LARGE bowel movement yesterday. Discussed UTI and will monitor progress with therapy now that infection being treated with possibility for return home with home health and will discuss with family about f/u with ortho for R hip as she will most definitely require rehab post-discharge. No fever, chills, chest pain, shortness of breath, abdominal pain, nausea reported at this time. Review of Systems Review of Systems: All systems reviewed & are unremarkable except as noted in HPI & below Physical Exam Constitutional: well developed and comfortable; no acute distress Eyes: + anicteric sclerae and PERRL ENMT: Ears: no hearing impairment Neck: normal visual inspection Respiratory: normal respiratory effort, lungs clear to auscultation Cardiovascular: RRR, no murmur, no edema Gastrointestinal (Abdomen): normal bowel sounds, soft, nontender, no hepatosplenomegaly Musculoskeletal: tender to palpation over thoracic spine calves non-tender NVI pulses palpable b/l Skin: warm, dry Neurologic: moves all extremities and awake Psychiatric: Orientation: alert and oriented x 3 Lymphatic: no cervical or axillary lymphadenopathy Results & Data Results & Data ([facility]) Vital Signs (Past 12 Hours) Vital Signs Temp Pulse Resp BP Pulse Ox 08/01/20 07:55 37.0 C 76 16 144/76 H 95 07/31/20 22:52 37.0 C 72 16 133/87 95 Laboratory Results 08/01/20 08/01/20 08/01/20 Range/Units 08:08 07:05 07:05 WBC 5.31 (4.8-10.8) K/uL RBC 3.99 L (4.2-5.4) M/uL Hgb 11.4 L (12.0-16.0) g/dL Hct 36.1 L (37-47) % MCV 90.5 (80-100) fL MCH 28.6 (25-34) pg MCHC 31.6 L (32-36) g/dL RDW Std Deviation 45.5 (36.4-46.3) fL RDW Coeff of Griselda 14.0 (11.5-14.5) % Plt Count 241 (130-400) K/uL MPV 10.0 (7.4-10.4) fL Immature Gran % (Auto) 0.4 % Neut % (Auto) 68.5 % Lymph % (Auto) 19.4 % Saline % (Auto) 8.7 % Eos % (Auto) 2.4 % Baso % (Auto) 0.6 % Neut # (Auto) 3.64 (1.4-6.5) K/uL Lymph # (Auto) 1.03 L (1.2-3.4) K/uL Saline # (Auto) 0.46 (0.11-0.59) K/uL Eos # (Auto) 0.13 (0-0.5) K/uL Baso # (Auto) 0.03 (0-0.2) K/uL Immature Gran # (Auto) 0.02 (0.00-0.02) K/uL Sodium 146 H (136-145) mmol/L Potassium 3.3 L D (3.5-5.1) mmol/L Chloride 115 H (98-107) mmol/L Carbon Dioxide 25 (21-32) mmol/L Anion Gap 6.0 (3-11) BUN 9 D (7-18) mg/dl Creatinine 0.52 L (0.6-1.2) mg/dl Est Cr Clr Drug Dosing 79.7 ml/min Est GFR ( Amer) 109.1 Est GFR (Non-Af Amer) 94.1 BUN/Creatinine Ratio 17.0 (10-20) Glucose 85 (70-99) mg/dl POC Glucose 108 H (70-99) mg/dl Calcium 8.5 (8.5-10.1) mg/dl Magnesium 2.4 (1.8-2.4) mg/dl 07/31/20 Range/Units 17:21 WBC (4.8-10.8) K/uL RBC (4.2-5.4) M/uL Hgb (12.0-16.0) g/dL Hct (37-47) % MCV (80-100) fL MCH (25-34) pg MCHC (32-36) g/dL RDW Std Deviation (36.4-46.3) fL RDW Coeff of Griselda (11.5-14.5) % Plt Count (130-400) K/uL MPV (7.4-10.4) fL Immature Gran % (Auto) % Neut % (Auto) % Lymph % (Auto) % Saline % (Auto) % Eos % (Auto) % Baso % (Auto) % Neut # (Auto) (1.4-6.5) K/uL Lymph # (Auto) (1.2-3.4) K/uL Saline # (Auto) (0.11-0.59) K/uL Eos # (Auto) (0-0.5) K/uL Baso # (Auto) (0-0.2) K/uL Immature Gran # (Auto) (0.00-0.02) K/uL Sodium (136-145) mmol/L Potassium (3.5-5.1) mmol/L Chloride (98-107) mmol/L Carbon Dioxide (21-32) mmol/L Anion Gap (3-11) BUN (7-18) mg/dl Creatinine (0.6-1.2) mg/dl Est Cr Clr Drug Dosing ml/min Est GFR ( Amer) Est GFR (Non-Af Amer) BUN/Creatinine Ratio (10-20) Glucose (70-99) mg/dl POC Glucose 97 (70-99) mg/dl Calcium (8.5-10.1) mg/dl Magnesium (1.8-2.4) mg/dl PG Care Time/CCT Total # of Minutes Spent Total Time Spent with Patient: Total time spent is greater than 50% in coordi nation of care (as documented) at patient's floor/unit and/or counseling patient: Coding Level of Care Code 10991 Subseq Hosp Care Lvl 2 Diagnoses Fall W19.XXXA Encounter type: initial encounter Thoracic compression fracture S22.000A E. coli UTI N39.0; B96.20 Osteoporosis M81.0 Right hip pain M25.551 Vitamin D deficiency E55.9 Hypercholesterolemia E78.00 Parkinsonism G20 Degenerative joint disease of right hip M16.11 Nephrolithiasis N20.0 Renal artery aneurysm I72.2 DVT prophylaxis Z29.9 (1) Fall Encounter type: initial encounter Qualified Code(s): W19.XXXA - Unspecified fall, initial encounter
[2020-08-01] MEDS: tiZANidine HCL 4 MG TABLET PO PRN (08:51)
[2020-08-01] MEDS ORDERED: SODIUM CHLORIDE 0.45 % 1,000 ML IV SCH (09:00)
[2020-08-01] MEDS ORDERED: SODIUM CHLOR 0.45% + 20MEQ KCL 20 MEQ/1,000 ML BAG IV SCH (09:00)
[2020-08-01 10:00] LABS: Bilirubin Direct 0.2 mg/dl (0-0.2); Bilirubin,Total 0.6 mg/dl (0.2-1); Total Protein 6.1 gm/dl (6.4-8.2)
--- NOTE | 2020-08-01 10:43 | Neurology Progress Note ---
Date of Service August 01, 2020 Assessment & Plan (1) Parkinsonism: Patient's encephalopathy seems to have resolved. No evidence of acute process on yesterday's CT of the head. Patient's encephalopathy was likely related to an adverse reaction to narcotic analgesics as she had received tr amadol, Dilaudid, and Percocet. Patient's encephalopathy has resolved with cessation of tramadol and Dilaudid. Her dosage of Percocet has been reduced. 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 She may continue with Sinemet at the current dosage. Patient may follow-up with Dr. Winston in neurology clinic for ongoing evaluation and management of this issue. Admission and Anticipated Discharge Date Admission Date: July 29, 2020 Subjective Follow-up for encephalopathy, atypical parkinsonism Patient's confusion/encephalopathy is significantly improved this morning. She is much more alert, attentive, and appropriate with questions. She is no longer exhibiting periodic myoclonic jerking of the limbs. Tramadol and hydromorphone have been discontinued. Her dosage of Percocet has been reduced. Review of Systems Neurologic: + unsteadiness, + generalized weakness and + tremor(s); no headache(s) Results & Data ([facility]) Vital Signs (Past 12 Hours) Vital Signs Temp Pulse Resp BP Pulse Ox 08/01/20 07:55 37.0 C 76 16 144/76 H 95 07/31/20 22:52 37.0 C 72 16 133/[address] of the head completed yesterday negative for hemorrhage or acute process. There is evidence of chronic small vessel ischemic change. There is no pathologic ventricular dilatation. These imaging findings were observed by the interpreting radiologist. I reviewed the images as well and agree. Exam (Neuro) Neurologic: Oriented to:: Person and Place; negative Time Attention: Span Intact; negative Concentration Intact Speech Fluency: Other (Speech is soft) Fund of Knowledge: Vocabulary; negative Current Events Cranial Nerves: Normal II and VII; Abnorm III, IV, (Limitation of vertical gaze noted, no nystagmus) Motor Strength: negative Normal Lower Extremities and Normal Upper Extremities Motor Tone: Generalized Hypotonicity Muscle Bulk/Involuntary Movements: Rest Tremor (Arm) Coordination: negative Finger-Nose Abnormal Coding Level of Care Code 57835 Subseq Hosp Care Lvl 2 Diagnoses Parkinsonism G20
[2020-08-01] MEDS: cefTRIAXone SODIUM 1,000 MG in DEXTROSE 5% 50 ML IV SCH (15:01)
[2020-08-01] MEDS: ESCITALOPRAM OXALATE 10 MG TAB PO SCH (20:30)
[2020-08-01] MEDS: ATORVASTATIN 10 MG TAB PO SCH (20:30)
[2020-08-01] MEDS: oxyCODONE/ACETAMINOPHEN 5mg/325mg TAB PO PRN (20:35)
[2020-08-02] MEDS: tiZANidine HCL 4 MG TABLET PO PRN (02:22)
[2020-08-02] MEDS: oxyCODONE/ACETAMINOPHEN 5mg/325mg TAB PO PRN (02:22)
[2020-08-02 07:34] LABS: Albumin Level 3.1 gm/dl (3.4-5.0); BUN Creatinine Ratio 14.2 (10-20); Bilirubin Direct 0.2 mg/dl (0-0.2); Calcium 8.6 mg/dl (8.5-10.1); Creatinine Clr Calc Pharmacy 81.2 ml/min; Est GFR (African American) 109.8; Est GFR (Non-African American) 94.7; Potassium 3.3 mmol/L (3.5-5.1)
[2020-08-02 07:36] LABS: Bilirubin,Total 0.6 mg/dl (0.2-1); Total Protein 6.4 gm/dl (6.4-8.2)
[2020-08-02] MEDS: POLYETHYLENE (MIRALAX) 17 GM PACK PO SCH (08:22)
[2020-08-02] MEDS: CARBIDOPA/LEVODOPA 25/100MG TAB PO SCH ×2 (08:22→14:22)
[2020-08-02] MEDS: MULTIVITAMIN TAB PO SCH (08:23)
[2020-08-02] MEDS: VITAMIN B COMPLEX TAB PO SCH (08:23)
[2020-08-02] MEDS: MIRABEGRON ER 25 MG TAB PO SCH (08:23)
[2020-08-02] MEDS: CHOLECALCIFEROL 1,000 UNITS 25 MCG TAB PO SCH (08:23)
[2020-08-02] MEDS: ASCORBIC ACID 500 MG TAB PO SCH (08:23)
[2020-08-02] MEDS: ENOXAPARIN INJ 30 MG/0.3 ML SYR SQ SCH (08:23)
--- NOTE | 2020-08-02 09:48 | Neurology Progress Note ---
Date of Service August 02, 2020 Assessment & Plan (1) Parkinsonism: (2) Encephalopathy: Patient Presented with back pain from a fall and some encephalopathy due it was likely due to multiple narcotics. After cutting the narcotics back her encephalopathy resolved. This morning she is doing well without any obvious encephalopathy. A CT of the head July 31 was unremarkable. the patient has an atypical parkinsonism, followed by Dr. 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 this seems to be stable. Recommendations: 1. Continue with Sinemet at the current dosage. 2. Patient may follow-up with Dr. Winston in neurology clinic for ongoing evaluation and management of this issue. 3. I have no further neurologic testing or treatment recommendations to make at this time otherwise. Overall, I spent a total of 35 minutes with this case including review of records, review of patient at bedside, discussion of the case with the patient at bedside, RN at bedside, and Dr. Tello, including differential diagnosis and treatment options. Admission and Anticipated Discharge Date Admission Date: July 29, 2020 Subjective Patient is in no pain, and has no confusion. She does not feel weak or numb. Blood pressure is 100/65 and she is afebrile. Results & Data ([facility]) Vital Signs (Past 12 Hours) Vital Signs Temp Pulse Pulse Resp BP BP Pulse Ox 08/02/20 09:16 36.8 C 79 18 100/65 96 08/01/20 23:08 36.9 C 79 16 156/77 H 96 Exam (Neuro) Physical Exam: She is awake and alert. Speech is without aphasia or dysarthria. Mood is reasonable affect is appropriate. She has a mild masklike face and mild bradykinesia in general. There is right greater than left rigidity but no rest tremor. Strength seems symmetrical and normal in all 4 limbs both proximally and distally. PG Care Time/CCT Total # of Minutes Spent Total Time Spent with Patient: Total time spent is greater than 50% in coordination of care (as documented) at patient's floor/unit and/or counseling patient: Coding Level of Care Code 20647 Subseq Hosp Care Lvl 3 Diagnoses Parkinsonism G20 Encephalopathy G93.40 Time Spent (min) 35
[2020-08-02] MEDS: DOCUSATE SODIUM 100 MG CAP PO SCH (10:30)
[2020-08-02] MEDS: LIDOCAINE 5% 1 PATCH TD SCH (13:24)
[2020-08-02] MEDS: cefTRIAXone SODIUM 1,000 MG in DEXTROSE 5% 50 ML IV SCH (13:48)
--- NOTE | 2020-08-02 18:00 | Discharge Summary ---
Date of Service August 02, 2020 Admission HPI Per Admitting Provider Richa is a 74-year-old female with significant history of chronich rt. hip pain, DJD with osteoperosis and osteoarthritis, parkinson disease, hld, and glucose intolerance. Patient reports to the emergency room today for worsening of her back pain. The patient injured her back 1.5 weeks ago when she was attempting to go from the couch to the bathroom, "got her feet tangled in her walker" and fell backwards. She was prescribed T3 ~late last week for her pain by her PCP. This has helped with her pain but for the past two days, the pain has become "unbearable." The pain is mid to low back, constant stabbing pain. The pain is associated with some tightness and spasm, but without/reported radiculopathic symptoms. Patient does have chronic right hip pain for the past 2-3 years and says that the hip pain is her normal pain. Patient is enrolled in physical therapy and was being evaluated for hip surgery per her PCP notes. Patient will be admitted for pain control, orthopaedics consult, PT/OT and cont inued rehab coordination upon discharge. I have spoken with the patient's daughter Kendra as she was on the phone with her during my examination. She would like to be updated once patient is evalu ated by orthopaedics for planning. Principal Diagnosis Fall with compression fracture Discharge Exam Constitutional WD/WN, vitals as above Eyes EOM intact bilaterally; no conjunctival abnormality ENMT external ear and nose normal, oropharynx normal Neck trachea midline, no thyromegaly normal visual inspection Respiratory normal respiratory effort, lungs clear to auscultation no respiratory distress Cardiovascular RRR, no murmur, no edema Gastrointestinal (Abdomen) Inspection/Auscultation: abdomen normal to inspection; abdomen not distended Musculoskeletal no cyanosis or clubbing, extremities motor strength 5/5 Skin no rashes, warm and dry Neurologic moves all extremities and awake Psychiatric Orientation: alert, oriented to person and cooperative Discharge Data Allergies Allergy/AdvReac Type Severity Reaction Status Date / Time morphine AdvReac Severe NAUSEA Verified 07/29/20 11:02 Fish Allergy Severe Nausea Uncoded 07/29/20 11:02 PSEUDAEPHEDRINE Allergy Severe VERY Uncoded 07/29/20 11:02 SHAKEY, JITTERY Actifed Cold/Allergy TABS AdvReac Severe "MAKES ME Uncoded 07/29/20 11:02 CRAZY" Consultations 07/29/20 12:11 ED Decision to Admit Stat 07/29/20 14:53 Consult Orthopedic Surgery Routine 07/30/20 15:18 Consult Neurology Routine 07/30/20 15:19 Consult Orthopedic Surgery Routine Ordered Studies 07/29/20 10:09 CT lumbar spine wo con Stat CT thoracic spine wo con Stat 07/31/20 11:48 CT head/brain wo con Routine 07/31/20 17:55 US gallbladder Routine Hospital Course (1) Fall: * multifactorial -- hx parkinsonism, and newly found E. Coli UTI Ortho consult -- conservative management for thoracic compression fracture Dr. Clarke consulted for R hip -- family will plan for discussion outpatient and likely proceeding with intervention for severe OA Pain control -- added tramadol, lidocaine patch. --> discontinue tramadol (per family, patient gets "loopy"), and discontinue oxycodone/tramadol IVF for now as patient increasingly lethargic after pain medications last evening and low urine output -- improving No reported back pain at present Orthotics consulted for brace -- will place on with therapy as pain medications wear off (she got PO and IV Dilaudid evening 07/30-07/31 for pain/agitation and had subsequent encephalopathy) --> RESOLVED CONFUSION Vit D low and placed on replacement - continue at discharge DVT proph -- SCDs, Lovenox PT/OT consults with rec for rehab however patient and family would like home with home therapy while awaiting discussion about hip repair as she will need rehab following that and they would like to avoid rehab x 2 Given drastic improvement of confusion with treatment for UTI (E.coli, pansensitive), will continue PT/OT. Discharged home on 08/02/2020. (2) Thoracic compression fracture: Ortho consult -- conservative management Pain control -- added tramadol, lidocaine patch. --> discontinued tramadol (per family, patient gets "loopy"), and discontinued oxycodone/tramadol No report back pain at present Orthotics consulted for brace -- will place on with therapy as pain medications wear off (she got PO and IV Dilaudid evening 07/30-07/31 for pain/agitation and had subsequent encephalopathy) Tylenol as needed, lidocaine patch Added zanaflex which seems to help with pain control -- consider continuing at discharge PT/OT consults with rec for rehab - Discharged on low-dose oxycodone and tizandidine PRN. Can follow up with outpatient orthopedic spine if needed. Advised to wear the TLSO brace when out of bed. (3) E. coli UTI: likely cause for current fall (in addition to R hip OA) Placed on Ceftriaxone for now Urine culture with E.coli, pansensitive - Discharged on Omnicef x 3 more days. (4) Osteoporosis: Bone density test in Jul Patient placed back on Boniva, appears to be recenly this month following her most recent dexa scan. Vit D level low 34.6 (prior 35.06 Jul 2018) Continue supplementation Fall precautions PT/OT evals with possible rehab at d/c. See above (5) Right hip pain: Chronic right hip pain. Patient with Physical Therapy as outpatient and has been improving per review. - pain with getting from sitting to standing - has gotten injections in dec 2019 and meloxicam since december - pain control as above Ortho consulted -- plans for possible outpatient f/u and intervention (6) Vitamin D deficiency: As above -- continue replacement (7) Hypercholesterolemia: Continue atorvastatin (8) Parkinsonism: Recently diagnosed in May via neurology, was referred for gait abnormality and evaluation (05/07/2020) - Patient placed on levodopa 25/100 tid. - Patient feels that this is helping her, but at times is unsure because her balance is still off - PT/OT to continue while inpatient - Follow up after hospitalization for possible dose increase if needed for movement/balance Neurology consulted CT Head negative for acute process No changes to current medications Follow up outpatient (9) Degenerative joint disease of right hip: As above - Orthopedics consult is in place for compression/burst fracture of t 12 - pain control as above Consult as above (10) Nephrolithiasis: Incidental findings, non obstructive - No acute needs - incidental renal cyst noted as well (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 Follow as outpatient with PCP. No acute intervention at this time. (12) DVT prophylaxis: SCD's Added Lovenox SQ Hypernatremia/Hypokalemia Place on 1/2NSS + 20k for 1L today for Na 146 and repeat chemistries in AM Constipation -- deals with chronically -- bowel regimen ordered -- LARGE BM reported -- continue regimen to keep regular as this tends to worsen her confusion per family Dispo; continued inpatient stay possible d/c in next 1-2 days with home PT/OT and family support Total Time Total Time Spent Total Time Spent (In Minutes): 35 Discharge Plan Discharge Items Patient Disposition: Home - Home Health Services Reason For Visit: COMPRESSION FRACTURE Discharge Diagnosis: Compression fracture and right hip arthritis Activity: Resume your previous activity Non-emergency contact: Primary Care Provider, Surgeon and Specialist Call non-emergency contact if: your symptoms worsen Follow-up/Referrals: Sahra Sinha CRNP [Primary Care Provider] - Saturnino Clarke MD [Surgeon] - (Please see Dr. Clarke to discuss options for your right hip.) Carine Winston MD [Physician] - (Please see Dr. Winston for your next regular appointment.) Shiraz Reynoso DO [Surgeon] - (Please see Dr. Reynoso in 3-4 weeks or sooner if the pain in the back gets worse or comes back.) Diet: Regular Addtl Attending Provider Instructions: Please wear the brace any time you are out of bed unless Dr. Reynoso instructs you otherwise. Pending Studies at Discharge: No Stand-Alone Forms: My [facility] [employer], Smoking Cessation Medications and DC Order Prescriptions: New tizanidine 4 mg Tablet 2 mg PO TID PRN (Reason: back pain) Qty: 15 RF: 0 oxycodone-acetaminophen [Percocet] 5-325 mg Tablet 0.5 tab PO Q4H PRN (Reason: pain) Qty: 10 RF: 0 lidocaine 5 % Adhesive Patch,Medicated 1 patch transdermal QAM Qty: 30 RF: 0 docusate sodium 100 mg Capsule 100 mg PO BID Qty: 30 RF: 0 cefdinir 300 mg capsule 300 mg PO BID Qty: 6 RF: 0 Continued atorvastatin 10 mg tablet 10 mg PO HS Qty: 90 RF: 3 escitalopram oxalate 5 mg tablet 5 mg PO HS Qty: 30 RF: 5 meloxicam 7.5 mg tablet 7.5 mg PO DAILY PRN (Reason: pain) Qty: 30 RF: 5 mirabegron 25 mg tablet extended release 24 hr 25 mg PO DAILY Qty: 90 RF: 3 ibandronate 150 mg tablet 150 mg PO .COMPLEX Qty: 3 RF: 3 Hold Instructions: patient hasn't been taking carbidopa-levodopa 25-100 mg tablet 1 tab PO TID Qty: 90 RF: 4 coenzyme Q10 [Co Q-10] 30 mg capsule 30 mg PO DAILY RF: 0 multivitamin [Multiple Vitamins] tablet 1 tab PO DAILY RF: 0 vitamin B complex tablet 1 tab PO DAILY RF: 0 ascorbic acid (vitamin C) 500 mg tablet 500 mg PO DAILY RF: 0 cholecalciferol (vitamin D3) 2,000 unit capsule 2,000 units PO DAILY RF: 0 Discontinued acetaminophen-codeine 300-30 mg tablet See Rx Instructions PO TID PRN (Reason: pain) Qty: 20 RF: 0 Discharge Orders: Discharge Order (Routine); Ordered 08/02/20 Ordered By: [place] Admission Data Admit Date/Time: 07/29/20 13:53 Attending Provider: [place] Admit Provider: Soto Lopez Primary Care Provider: Sahra Sinha Other Providers: Shiraz Reynoso Christina R. ; Saturnino Clarke ; [place] ; [facility] Other Interventions: Discharge Summary Assessment (RN) Last Done: 08/02/20 16:00 Coding Level of Care Code D/C Day Management >30 mins Diagnoses Fall W19.XXXA Encounter type: initial encounter Thoracic compression fracture S22.000A E. coli UTI N39.0; B96.20 Osteoporosis M81.0 Right hip pain M25.551 Vitamin D deficiency E55.9 Hypercholesterolemia E78.00 Parkinsonism G20 Degenerative joint disease of right hip M16.11 Nephrolithiasis N20.0 Renal artery aneurysm I72.2 DVT prophylaxis Z29.9
--- NOTE | 2020-08-16 10:19 | Coding Query ---
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 Please assist us with the question(s) below: Coding Question(s): It was noted throughout the record that the patient has/is suspected to have osteoporosis. According to coding guidelines "a code for osteoporotic fracture, and not a traumatic fracture, should be used for any patient with known osteoporosis who suffers a fracture, even if the patient had a minor fall or trauma, if that fall or trauma would not usually break a normal, healthy bone." Please indicate below the type of fracture: Physician's Response(s): ( ) Osteoporotic Thoracic fracture ( x ) Traumatic Thoracic fracture ( ) Other, please specify ( ) Unable to be determined MTDD
== END 2020-08-02 17:20 | disposition home health service (06) | DRG 551 ==
LOC: ED 09:52 → SUATTDRO 13:53 → 3N 13:53

== ENCOUNTER 2020-09-17 05:05 | Observation (INO) ==
--- NOTE | 2020-08-20 13:33 | PAT Medication Instructions ---
Medication Instructions Date of Service August 20, 2020 Home Medications Medication Instructions Recorded escitalopram oxalate 5 mg tablet 5 mg PO HS #30 tab 02/02/20 meloxicam 7.5 mg tablet 7.5 mg PO DAILY PRN #30 tab 03/17/20 mirabegron 25 mg tablet,extended 25 mg PO DAILY #90 tab 07/16/20 release 24 hr ibandronate 150 mg tablet 150 mg PO .COMPLEX #3 tab 07/21/20 docusate sodium 100 mg PO BID #30 cap 08/02/20 lidocaine 1 patch TRANSDERMAL QAM #30 ea 08/02/20 oxycodone-acetaminophen [Percocet] 0.5 tab PO Q4H PRN #10 tab 08/02/20 tizanidine 2 mg PO TID PRN #15 tab 08/02/20 Bedside Commode 1 ea .ROUTE ONCE #1 ea 08/05/20 carbidopa 25 mg-levodopa 100 mg 1 tab PO TID #90 tab 08/10/20 tablet levofloxacin 500 mg tablet 500 mg PO DAILY #5 tab 08/16/20 atorvastatin 10 mg tablet 10 mg PO HS #90 tab 08/20/20 coenzyme Q10 30 mg capsule 30 mg PO HS multivitamin 1 tab PO QAM vitamin B complex 1 tab PO QAM ascorbic acid (vitamin C) 500 mg tablet 500 mg PO QAM cholecalciferol (vitamin D3) 50 mcg (2,000 unit) capsule 2,000 units PO QAM escitalopram oxalate 5 mg tablet 5 mg PO HS meloxicam 7.5 mg tablet 7.5 mg PO DAILY PRN mirabegron 25 mg tablet,extended release 24 hr 25 mg PO DAILY ibandronate 150 mg tablet 150 mg PO docusate sodium 100 mg PO BID lidocaine 1 patch TRANSDERMAL QAM oxycodone-acetaminophen [Percocet] 0.5 tab PO Q4H PRN tizanidine 2 mg PO TID PRN carbidopa 25 mg-levodopa 100 mg tablet 1 tab PO TID levofloxacin 500 mg tablet 500 mg PO DAILY atorvastatin 10 mg tablet 10 mg PO HS Continue as directed ibandronate 150 mg tablet 150 mg PO (just do not take on day of surgery) lidocaine 1 patch TRANSDERMAL QAM (do not put near or around surgical site) levofloxacin 500 mg tablet 500 mg PO DAILY ASK your surgeon for instructions meloxicam 7.5 mg tablet 7.5 mg PO DAILY PRN STOP taking 2 weeks before surgery coenzyme Q10 30 mg capsule 30 mg PO HS DO NOT take the morning of surgery multivitamin 1 tab PO QAM vitamin B complex 1 tab PO QAM ascorbic acid (vitamin C) 500 mg tablet 500 mg PO QAM cholecalciferol (vitamin D3) 50 mcg (2,000 unit) capsule 2,000 units PO QAM mirabegron 25 mg tablet,extended release 24 hr 25 mg PO DAILY docusate sodium 100 mg PO BID tizanidine 2 mg PO TID PRN Take morning of surgery With a small sip of water, OTHERWISE NOTHING TO EAT OR DRINK AFTER MIDNIGHT: oxycodone-acetaminophen [Percocet] 0.5 tab PO Q4H PRN (okay to take up to 4 hours prior to surgery if needed) carbidopa 25 mg-levodopa 100 mg tablet 1 tab PO TID Take evening before surgery escitalopram oxalate 5 mg tablet 5 mg PO HS docusate sodium 100 mg PO BID oxycodone-acetaminophen [Percocet] 0.5 tab PO Q4H PRN (if needed) tizanidine 2 mg PO TID PRN (if needed) carbidopa 25 mg-levodopa 100 mg tablet 1 tab PO TID atorvastatin 10 mg tablet 10 mg PO HS Other Notes If you have any questions please call us at [phone] or [phone] or [phone] or [phone]
--- NOTE | 2020-08-25 10:52 | Anesthesiology Consultation ---
Date of Service August 25, 2020 Assessment & Plan (1) Encounter for pre-operative examination: Chart Review Chart Review: Pending: Refer to Additional Notes / Consult section (pending cardio evaluation, 09/06 neuro visit and preop Covid testing ) and Patient seen in Pre Admission Testing - Awaiting neuro visit 09/06/20 - Note sent to PCP re: anterior infarct criteria on EKG. Due to increased debilitation and recent EKGs- PCP recommends cardio evaluation. Will set patient up for cardiac evaluation. History of T12 compression fracture 07/29/2020. Per 07/29/[address] evidence of fracture or malalignment involving the lumbar spine. Per PAT appt on 08/25/20, patient denies any recent travel. No known Covid positive contacts or Covid related symptoms. No known Covid infection in the past 90 days. Educated patient to follow up with surgeon's office regarding Covid testing. Educated on importance of self quarantining, social distancing and wearing mask in public both for the patient and household contacts. Seen by PCP 08/10/2020 = seen for follow-up on recent hospitalization for follow- up thoracic compression fracture and chronic right hip pain from DJD. Patient will be following up with Ortho regarding hip tomorrow and would like to proceed with ALEKS if surgeon agrees. Urine culture were done to ensure resolution of UTI. Encephalopathyresolved at this time. Last neurology office visit as outpatient 05/07/2020 = parkinsonism most likely with either Lewy body dementia versus Parkinson's plus or cortical basal degeneration. Continue carbidopa levodopa. "Agree with having right hip surgery performed as this will likely help improve her overall gait/ability to ambulate around. If performed, recommend no or minimal opiates post-operatively to minimize post-operative delirium risk." Follow up in four months Consults Requested cardiac (abnormal EKG/low metabolic activity ) Teaching & Discussion Pre-Anesthesia Teaching/Discussion Notes: Instructed NPO after midnight before surgery,except medications with 15 cc of water. Medication instructions provided according to the PAT guidelines. History Surgery Operation Date: 09/17/20 13:00 Proposed Procedures p Right Total Hip Arthroplasty - Eliot Garcia MD Height/Weight Height: 5 ft 2.5 in Weight: 57.5 kg Allergies Allergy/AdvReac Type Severity Reaction Status Date / Time Penicillins Allergy Unknown Unknown Verified 08/18/20 07:34 morphine AdvReac Intermediate NAUSEA Verified 08/18/20 07:34 pseudoephedrine AdvReac Intermediate "MAKES ME Verified 08/18/20 07:34 CRAZY" tramadol AdvReac Intermediate confusion Verified 08/18/20 07:34 / " loopy " Actifed Cold/Allergy TABS AdvReac Intermediate "MAKES ME Uncoded 08/18/20 07:34 CRAZY" Fish AdvReac Intermediate Nausea Uncoded 08/18/20 07:34 Medications Home Medications Medication Instructions Recorded Confirmed Last Taken coenzyme Q10 30 mg capsule 30 mg PO HS 12/04/18 08/18/20 Unknown multivitamin 1 tab PO QAM 12/04/18 08/18/20 Unknown vitamin B complex 1 tab PO QAM 12/04/18 08/18/20 Unknown ascorbic acid (vitamin C) 500 mg 500 mg PO QAM tab 01/29/19 08/18/20 Unknown tablet cholecalciferol (vitamin D3) 50 2,000 units PO QAM cap 01/29/19 08/18/20 Unknown mcg (2,000 unit) capsule escitalopram oxalate 5 mg tablet 5 mg PO HS #30 tab 02/02/20 08/18/20 Unknown meloxicam 7.5 mg tablet 7.5 mg PO DAILY PRN #30 tab 03/17/20 08/18/20 Unknown mirabegron 25 mg tablet,extended 25 mg PO DAILY #90 tab 07/16/20 08/18/20 Unknown release 24 hr ibandronate 150 mg tablet 150 mg PO .COMPLEX #3 tab 07/21/20 08/18/20 Unknown docusate sodium 100 mg PO BID #30 cap 08/02/20 08/18/20 Unknown lidocaine 1 patch TRANSDERMAL QAM #30 ea 08/02/20 08/18/20 Unknown oxycodone-acetaminophen [Percocet] 0.5 tab PO Q4H PRN #10 tab 08/02/20 08/18/20 Unknown tizanidine 2 mg PO TID PRN #15 tab 08/02/20 08/18/20 Unknown Bedside Commode 1 ea .ROUTE ONCE #1 ea 08/05/20 08/11/20 Unknown carbidopa 25 mg-levodopa 100 mg 1 tab PO TID #90 tab 08/10/20 08/18/20 Unknown tablet levofloxacin 500 mg tablet 500 mg PO DAILY #5 tab 08/16/20 08/18/20 Unknown atorvastatin 10 mg tablet 10 mg PO HS #90 tab 08/20/20 Unknown Past Medical History Medical History (Updated 08/25/20 @ 16:33 by Sahra Rincon PA-C) Fall LAST EVENT 4 WEEKS AGO GERD (gastroesophageal reflux disease) Well controlled and stable Hx of compression fracture of spine T 12 COMPRESSION FRACTURE (S/P FALL OVER 4 WEEKS AGO>HOSPITALIZED AT [facility]) CONSERVATIVE MANAGEMENT Hypercholesterolemia Hypertension BP MED RECENTLY STOPPED (BP WNL) Osteoarthritis Osteoporosis Parkinsonism MINOR TREMORS (WORSE AT NIGHT)- IMPROVED WITH MUSCLE RELAXANT MORE TROUBLE WITH MENTAL STATE "DOES BETTER WITH PRESENT" Stress incontinence UTI (urinary tract infection) FINISHED LEVAQUIN 08/24/20 Exercise / Class Metabolic Activity IV < 2 Limit ADL/Bedbound (HAS BEEN IN WHEELCHAIR FOR PAST SEVERAL WEEKS ) Past Family History Family History Sister Uterine cancer Mother Diabetes Breast cancer Family history of diabetes mellitus Father Hx of CABG Other No family history of adverse response to anesthesia Denies family history of Ovarian cancer Prostate cancer Myocardial infarction Colorectal cancer Past Surgical History Surgical History History of ankle surgery LEFT ANKLE (HARDWARE INTACT) History of appendectomy History of breast biopsy MULT. BENIGN History of tonsillectomy and adenoidectomy History of tooth extraction History of total abdominal hysterectomy and bilateral salpingo-oophorectomy Past Anesthesia History No Hx of Anesthesia Complications and No Family Hx of Anesthesia Complications History of PONV No Hx of PONV and No Hx of Motion Sickness Social History Smoking Status: Never smoker Hx Alcohol Use: No Hx Substance Use: No substance use type: does not use Review of Systems Patient denies chest pain, shortness of breath, dyspnea on exertion, cough, wheezing, palpitations. No hx of seizures, stroke, [place], apnea/snoring. No hx of blood clots or blood transfusions Physical Exam Vital Signs VITALS BP 120/78 P 89 TEMP 99.0 SP02 97% RESP 16 Constitutional no acute distress ENMT Mouth: + small oral opening; no TMJ clicking Thyromental Distance: > or= 3.5 Finger Breadths (3.5) Mallampati Class: III Full dentures on top and bottom Neck + limited neck extension (significant ) Respiratory normal respiratory effort; no respiratory distress Auscultation: lungs clear to auscultation bilaterally; no wheezes Cardiovascular Rate/Rhythm: regular rate and regular rhythm Heart Sounds: no murmur Vessels: no carotid bruit Musculoskeletal Spine: + kyphosis; no pain with cervical ROM Extremities: extremities normal to inspection Psychiatric Orientation: alert Testing Laboratory Results 08/25/20 11:25 08/25/20 11:25 PT 10.9 Seconds (9.0-12.0) 08/25/20 11:25 INR 1.1 (0.9-1.1) 08/25/20 11:25 APTT 21.8 Seconds (21.0-31.0) 08/25/20 11:25 Urine Color Dark Yellow 08/25/20 11:25 Urine Appearance Cloudy (Clear) A 08/25/20 11:25 Urine pH 5.5 (4.5-7.5) 08/25/20 11:25 Ur Specific [place] 1.025 (1.000-1.030) 08/25/20 11:25 Urine Protein Negative (Negative) 08/25/20 11:25 Urine Glucose (UA) Negative (Negative) 08/25/20 11:25 Urine Ketones Trace (Negative) H 08/25/20 11:25 Urine Nitrite Negative (Negative) 08/25/20 11:25 Ur Leukocyte Esterase Trace (Negative) H 08/25/20 11:25 Urine WBC (Auto) 5-10 /hpf (0-5) H 08/25/20 11:25 Urine RBC (Auto) 0-4 /hpf (0-4) 08/25/20 11:25 U Hyaline Cast (Auto) Not Reportable 08/25/20 11:25 U Epithel Cells (Auto) >30 /lpf (0-5) H 08/25/20 11:25 Urine Bacteria (Auto) Negative (Negative) 08/25/20 11:25 Blood Type O Positive 08/25/20 11:25 Antibody Screen NEGATIVE 08/25/20 11:25 Electrocardiogram Date: 07/30/20 Findings: + NSR @ (97bpm ) Poor data quality Minimal voltage criteria for LVH, may be normal variant. Nonspecific ST abnormality. Minimal criteria for anterior infarct present Chest X-Ray Date: 08/20/20 Findings: + NAD There is a moderate to large hiatal hernia. Chronic interstitial thickening is similar to previous. There is bibasilar scarring/atelectasis. No airspace consolidation or pleural effusion is identified. There is no pneumothorax. A compression deformity is noted in the lower thoracic spine.
[2020-08-25 12:05] LABS: Basophils # (auto) 0.03 K/uL (0-0.2); Basophils % (auto) 0.6 %; Eosinophils # (auto) 0.08 K/uL (0-0.5); Eosinophils % (auto) 1.5 %; Hematocrit (blood only) 39.9 % (37-47); Hemoglobin 12.6 g/dL (12.0-16.0); Immature Granulocytes # (auto) 0.01 K/uL (0.00-0.02); Immature Granulocytes % (auto) 0.2 %; Lymphocytes # (auto) 1.08 K/uL (1.2-3.4); Lymphocytes % (auto) 20.8 %; Mean Corpuscular Hemoglobin 28.6 pg (25-34); Mean Corpuscular Hgb Conc 31.6 g/dL (32-36); Mean Corpuscular Volume 90.7 fL (80-100); Mean Platelet Volume 10.3 fL (7.4-10.4); Monocytes # (auto) 0.38 K/uL (0.11-0.59); Monocytes % (auto) 7.3 %; Neutrophils # (auto) 3.61 K/uL (1.4-6.5); Neutrophils % (auto) 69.6 %; Platelet Count 253 K/uL (130-400); RDW Coefficient of Variation 14.7 % (11.5-14.5); RDW Standard Deviation 47.9 fL (36.4-46.3); White Blood Count 5.19 K/uL (4.8-10.8)
[2020-08-25 12:12] LABS: Appearance Urine Cloudy (Clear); Bacteria Urine Automated Negative (Negative); Bilirubin Urine Negative (Negative); Blood Urine Negative (Negative); Color Urine Dark Yellow; Epithelial Cell Urine Auto >30 /lpf (0-5); Glucose Urine UA Negative (Negative); Ketones Urine Trace (Negative); Leukocyte Esterase Urine Trace (Negative); Nitrite Urine Negative (Negative); Protein Urine Negative (Negative); Specific Gravity Urine 1.025 (1.000-1.030); Urobilinogen Urine Negative (Negative); pH Urine 5.5 (4.5-7.5)
[2020-08-25 12:16] LABS: INR 1.1 (0.9-1.1); Partial Thromboplastin Ratio 0.8; Partial Thromboplastin Time 21.8 Seconds (21.0-31.0); Prothrombin Time 10.9 Seconds (9.0-12.0)
[2020-08-25 12:44] LABS: RBC Urine Automated 0-4 /hpf (0-4)
--- NOTE | 2020-08-25 12:44 | XRay Report ---
TWO VIEW CHEST CLINICAL HISTORY: Preoperative examination. FINDINGS: AP and lateral chest radiographs are compared to study dated 07/11/2019. The heart is top no rmal for projection noting atherosclerotic calcification of the thoracic aorta. There is a moderate t o large hiatal hernia. Chronic interstitial thickening is similar to previous. There is bibasilar sca rring/atelectasis. No airspace consolidation or pleural effusion is identified. There is no pneumotho rax. The skeletal structures are osteopenic. A compression deformity is noted in the lower thoracic s pine. Degenerative change and hyperkyphosis is noted in the thoracic spine. IMPRESSION: 1. No active disease in the chest. 2. Hiatal hernia. ACT 112: Negative or not required by law. Electronically signed by: Ulysses Walker M.D. 08/25/2020 12:42 PM
[2020-08-25 12:45] LABS: Calcium Oxalate Crystals Urine Present (None Prsent)
[2020-08-25 14:44] LABS: Calcium 9.7 mg/dl (8.5-10.1); Creatinine Clr Calc Pharmacy 56.2 ml/min; Est GFR (African American) 97.3; Est GFR (Non-African American) 83.9; Potassium 3.6 mmol/L (3.5-5.1)
[2020-09-17] MEDS ORDERED: FAMOTIDINE 20 MG TAB PO SCH (06:00)
[2020-09-17] MEDS ORDERED: METOCLOPRAMIDE HCL 10 MG TABLET PO SCH (06:00)
[2020-09-17] MEDS ORDERED: LR 60ML/HR IV SCH (06:00)
[2020-09-17] MEDS ORDERED: LR 500ML BOLUS, THEN 15ML/HR IV SCH (06:00)
[2020-09-17] MEDS ORDERED: ACETAMINOPHEN 500 MG TAB PO SCH (06:00)
[2020-09-17] MEDS ORDERED: ceFAZolin 2000MG 2,000 MG/15 ML SYR IV SCH (06:00)
[2020-09-17] MEDS ORDERED: TRANEXAMIC ACID 1,000 MG **IV Pre-op IV SCH (06:00)
[2020-09-17] MEDS ORDERED: GABAPENTIN 300 MG CAP PO SCH (06:00)
[2020-09-17] MEDS ORDERED: BUPIVACAINE 0.5 % 5 MG/1 ML PF 10ML VIAL ONE (06:21)
[2020-09-17] MEDS ORDERED: MIDAZOLAM HCL 1 MG/ML 2ML VIAL ONE (06:38)
[2020-09-17] MEDS ORDERED: MoRPHine SULFATE PF 1 MG/ML 10 ML AMP/VIAL ONE (06:38)
[2020-09-17] MEDS ORDERED: PROPOFOL IV EMULSION 10 MG/ML 20 ML VIAL IV ONE ×2 (06:39)
[2020-09-17] MEDS ORDERED: LIDOCAINE HCL 2% 2 ML VIAL/AMP(20MG/ML) INFIL ONE (06:39)
[2020-09-17] MEDS ORDERED: fentaNYL citrate 100 MCG/2 ML VIAL ONE (06:39)
[2020-09-17] MEDS ORDERED: ONDANSETRON INJ 2 MG/ML 2 ML VIAL ONE (06:39)
[2020-09-17] MEDS ORDERED: BUPIVACAINE/EPINEPHRINE 0.5% MPF 1:200,000 30 ML VIAL ONE (06:41)
[2020-09-17] MEDS ORDERED: BACITRACIN INJ 50,000 UNIT VIAL ONE (06:41)
[2020-09-17] MEDS ORDERED: ATROPINE SULFATE 0.1 MG/ML 10ML SYR IV PRN (06:48)
[2020-09-17] MEDS ORDERED: fentaNYL citrate 100 MCG/2 ML VIAL IV PRN (06:48)
[2020-09-17] MEDS ORDERED: HYDROmorphone INJ 1 MG/ML SYRINGE IV PRN (06:48)
[2020-09-17] MEDS ORDERED: ePHEDrine sulfate 50 MG/ML AMP IV PRN ×2 (06:48→09:07)
--- NOTE | 2020-09-17 06:56 | History & Physical Bridge Note ---
Date of Service September 17, 2020 History & Physical Bridge Note I have examined the patient, reviewed the History & Physical and in the interval since the performance of the History & Physical I have noted the following changes of clinical significance: no changes noted
[2020-09-17] MEDS ORDERED: PHENYLEPHRINE 100MCG/ML 5ML SYR ONE (08:24)
[2020-09-17] MEDS ORDERED: PHENYLEPHRINE HCL 10 MG/ML VIAL ONE (08:24)
--- NOTE | 2020-09-17 08:53 | Operative Report ---
Post Operative Report Pre & Post Diagnosis Operation Date: 09/17/20 07:00 Pre-Op Diagnosis: Right Hip Osteoarthritis Post-Op Diagnosis: Right Hip Osteoarthritis I identified the patient and participated in the time-out.: Yes Procedure Operation Date: 09/17/20 07:00 Actual Procedures p Right Total Hip Arthroplasty(Right) - Eliot Garcia MD Surgeon Eliot Garcia MD Extension Service Agent URBANO Raya Estimated Blood Loss 200 Findings Consistent with Post-Op Diagnosis Operative findings were advanced right hip DJD. She had collapse of the femoral head and extensive grade 4 [id number] disease of the femoral head and acetabulum. Very sclerotic acetabulum. Fluids 1000 cc. Specimens Right femoral head sent for pathology. Drains None. Anesthesia Type Spinal Complications none Disposition Accompanied Patient To Recovery: Yes Disposition: Recovery Room Indications Patient is a 75-year-old female with multiple medical comorbidities including recently diagnosed Parkinson's disease. Over the past 6 months she has become markedly debilitated by her hip pain. She been unable to ambulate and essentially wheelchair-bound due to her advanced hip arthritis. She failed all conservative measures. Operative and nonoperative options were explained to the family and the patient and she strongly desired surgical treatment. She is fully aware she is at increased risk for instability due to Parkinson's disease. Description of Procedure Operative implants consist of: 1. Biomet G7 size 50 mm acetabular shell. 2. 6.5 cancellous acetabular screws 1 of 35 mm length 130 mm length. 3. Rockwood hole inside account executive. 4. Highly cross-linked polyethylene liner with a 50 mm outer diameter 36 mm inner diameter. 5. DePuy karate size 9 KLA short neck femoral stem. 6. +1.5/36 mm ceramic articular ball. The patient was taken to the operating identified and placed on the operating table supine position but all contractors were properly padded. IV antibiotics tried by anesthesia team. A spinal anesthetic and been implemented holding area. Gilmore catheter was placed in sterile fashion. The patient then placed in the left lateral decubitus position. Axillary roll was placed. A Stulberg hip positioner was used for positioning. The right hip and leg were then prepped and draped in usual sterile fashion. Posterior lateral approach of the right hip was then performed to a curvilinear incision centered over the greater trochanter. Sharp dissection was carried through subcutaneous this down to level the IT band gluteal fascia but the IT band gluteal fascia incised longitudinally in line with skin incision. The underlying greater bursa was excised. The piriformis and external rotators were tagged and taken off the posterior aspect hip joint capsule. Great care was taken throughout the procedure protect the sciatic nerve at all times. Posterior capsulotomy was then performed in the mid large flap for later repair. Hip was internally rotated and dislocated. Femoral neck osteotomy cut was made with Final Cut about 6 mm above the lesser trochanter. Femoral head removed and sent for pathology. The femur was retracted anteriorly. Attention drawn the acetabulum. The acetabular labrum was excised. The pulmonary fat was excised. Sequential reaming the acetabular was then performed beginning with a size 43 and progressing up 1249. I did reamed slightly with a 50. A 50 mm Biomet G7 acetabular shell was then placed in about 40 degrees lateral opening and 20 to 25 degrees of anteversion. I did put a bit more anteversion in her cup due to her Parkinson's disease and increased risk of posterior instability. Of note, her acetabular was extremely sclerotic. The acetabular was fixed with two 6.5 cancellous acetabular screws. Trial liner was placed. Attention drawn the femur. The proximal femur was entered with the Pipeliner CRM cutter followed by canal finder. I then broached begin the size 8 and progressed to a 9. Excellent fit in the 9. I then trialed the hip. With the standard neck was just too tight. We used the short neck and initially with a +5 articular ball still seemed a little bit tight. Mostly tight in extension. Therefore we decided to go down to the 1.5 which is seem to recreate leg length equal and soft tissue tension appropriately. I elect to place these implants. All trial implants were removed. An apex hole inside account executive was placed. Highly cross-linked polyethylene liner was placed. We did place a 36 head in order to maximize her stability. A DePuy size 9 KLA short neck femoral stem was impacted in position. +1.5/36 mm triple ball was placed. Hip was located once again fo und to be stable. Attention drawn toward closing. Nupathe wounds irrigated scope soft pulsatile lavage solution. I did inject locally with 50 cc of half percent Marcaine with epinephrine. The posterior capsule and external rotators were then repaired through drill holes in the posterior trochanter with #2 Tycron suture. The IT band gluteal fascia then closed in 1 PDS suture running fashion. The subcutaneous tissue was then closed with 2 layers the deep layer #1 Vicryl suture subcutaneous tissues with 2-0 Dexon suture in a buried interrupted fashion. Skin was closed skin tana. Leg was then cleaned and dried a sterile dressing both Xeroform, 4 x 4's, sterile ABD pad, foam tape was applied. Patient then transferred to the recovery room in stable condition. Patient tolerated procedure well and there were no complications. Hawk Raya, my physician legal support assistant, was present for the entire procedure. His assistance was essential and required for appropriate patient positioning, prepping and draping, surgical exposure, performing the technical details of the operation, placement the implants, closure of the wound, and placement of the sterile bandage. I attest to the content of the Intraoperative Record and any orders documented therein. Any exceptions are noted below.
[2020-09-17] MEDS ORDERED: MoRPHine SULFATE 2 MG/ML CARP IV PRN (09:07)
[2020-09-17] MEDS ORDERED: NALOXONE HCL 1 MG in SODIUM CHLORIDE 0.9% 1000ML 1,000 ML IV PRN (09:07)
[2020-09-17] MEDS ORDERED: MEPERIDINE HCL 25 MG/ML CARP/VIAL IV PRN (09:07)
[2020-09-17] MEDS ORDERED: NALOXONE HCL 0.4 MG/1 ML VIAL/CARP IV PRN ×2 (09:07→10:49)
[2020-09-17] MEDS ORDERED: diphenhydrAMINE 50 MG/ML VIAL IV PRN (09:07)
[2020-09-17] MEDS ORDERED: HYDROmorphone INJ 0.5 MG/0.5 ML SYR IV PRN (09:07)
[2020-09-17] MEDS ORDERED: NALOXONE HCL 0.08 MG in SYRINGE 1.8 ML IV PRN (09:07)
[2020-09-17] MEDS ORDERED: ONDANSETRON INJ 2 MG/ML 2 ML VIAL IV PRN (09:07)
[2020-09-17] MEDS ORDERED: MoRPHine SULFATE PF 1 MG/ML 10 ML AMP/VIAL INT SPINAL ONE (09:07)
[2020-09-17] MEDS ORDERED: LACTATED RINGER'S 500 ML IV PRN (09:07)
[2020-09-17] MEDS ORDERED: KETOROLAC TROMETHAMINE 15 MG/ML VIAL IV PRN (09:11)
[2020-09-17] MEDS ORDERED: SODIUM CHLORIDE 0.9% 1000ML 1,000 ML IV SCH (09:15)
[2020-09-17] MEDS ORDERED: NO NARCOTICS OR SEDATIVES SCH (09:15)
--- NOTE | 2020-09-17 10:00 | XRay Report ---
XR hip 1V RT w pelvis CLINICAL HISTORY: Postoperative evaluation. COMPARISON: Pelvis and right hip radiographs July 29, 2020. FINDINGS: Alignment of the total right hip arthroplasty is anatomic. There is no periprosthetic frac ture or unexpected radiopaque foreign body. There are acetabular screws and skin tana. IMPRESSION: Expected findings following total right hip arthroplasty. ACT 112: Negative or not required by law. Electronically signed by: Mauri Quinn M.D. 09/17/2020 9:59 AM
--- NOTE | 2020-09-17 10:27 | Anesthesiology Progress Note ---
Date of Service September 17, 2020 Anesthesia Post Procedure Vital Signs Vital Signs: Temp Pulse Pulse Resp BP BP Pulse Ox 09/17/20 10:10 74 18 104/45 L 96 09/17/20 10:00 36.6 C 69 14 102/51 L 97 09/17/20 09:50 69 18 116/65 99 09/17/20 09:40 67 17 93/49 L 99 09/17/20 09:30 68 18 100/55 L 100 09/17/20 09:20 69 20 95/51 L 100 09/17/20 09:10 70 16 93/51 L 100 09/17/20 09:00 71 20 99/49 L 100 09/17/20 08:50 77 18 92/44 L 100 09/17/20 08:41 36.9 C 83 21 121/59 L 96 09/17/20 05:26 36.2 C L 85 18 162/104 H 97 Pain Intensity Right Hip: Pain Intensity: 6 Transfer of Care Handoff Completed per policy Notes Mental Status: alert / awake / arousable and participated in evaluation Patient Amnestic to Procedure: Yes Nausea / Vomiting: adequately controlled Pain: adequately controlled Airway Patency, RR, SpO2: stable & adequate BP & HR: stable & adequate Hydration State: stable & adequate Anesthetic Complications: no major complications apparent
[2020-09-17] MEDS: SODIUM CHLORIDE 0.9% 1000ML 1,000 ML IV SCH ×2 (10:45→20:32)
[2020-09-17] MEDS ORDERED: MAGNESIUM HYDROXIDE SUSP 30 ML UDC PO PRN (10:49)
[2020-09-17] MEDS ORDERED: bisacodyL 10 MG SUPP PR PRN (10:49)
[2020-09-17] MEDS ORDERED: METOCLOPRAMIDE HCL INJ 5 MG/ML 2 ML VIAL IV PRN (10:49)
[2020-09-17] MEDS ORDERED: ALUMINUM/MAGNESIUM SUSP 30 ML UDC PO PRN (10:49)
[2020-09-17] MEDS ORDERED: MULTIVITAMIN TAB PO SCH (10:49)
[2020-09-17] MEDS: DOCUSATE SODIUM 100 MG CAP PO SCH ×4 (11:46→20:33)
[2020-09-17] MEDS: MULTIVITAMIN TAB PO SCH (12:56)
[2020-09-17] MEDS: ASCORBIC ACID 500 MG TAB PO SCH (12:56)
[2020-09-17] MEDS: VITAMIN B COMPLEX TAB PO SCH (12:56)
[2020-09-17] MEDS ORDERED: ASPIRIN 81 MG ECTAB PO ONE (13:30)
[2020-09-17] MEDS: KETOROLAC TROMETHAMINE 15 MG/ML VIAL IV SCH ×3 (13:51→22:57)
[2020-09-17] MEDS: LIDOCAINE 5% 1 PATCH TD SCH (13:53)
[2020-09-17] MEDS: ACETAMINOPHEN 500 MG TAB PO SCH ×2 (13:54→22:57)
[2020-09-17] MEDS: MIRABEGRON ER 25 MG TAB PO SCH (14:02)
[2020-09-17] MEDS: CARBIDOPA/LEVODOPA 25/100MG TAB PO SCH ×2 (14:03→20:34)
[2020-09-17] MEDS: ceFAZolin 1000MG 1,000 MG/7.5 ML SYR IV SCH ×2 (14:16→22:57)
[2020-09-17] MEDS ORDERED: TRANEXAMIC ACID / 0.7% NACL 1,000 MG/100 ML BAG IV SCH (14:45)
[2020-09-17] MEDS: FERROUS GLUCONATE 324 MG TAB PO SCH (18:31)
[2020-09-17] MEDS: ESCITALOPRAM OXALATE 10 MG TAB PO SCH (20:34)
[2020-09-17] MEDS: SENNA 8.6 MG TAB PO SCH (20:34)
[2020-09-17] MEDS: ASPIRIN 81 MG ECTAB PO SCH (20:34)
[2020-09-17] MEDS: ATORVASTATIN 10 MG TAB PO SCH (20:35)
[2020-09-18] MEDS ORDERED: DC INTRASPINAL MORPHINE SCH (03:07)
[2020-09-18] MEDS ORDERED: ONDANSETRON INJ 2 MG/ML 2 ML VIAL IV PRN (03:07)
[2020-09-18] MEDS ORDERED: HYDROmorphone INJ 0.5 MG/0.5 ML SYR IV PRN (03:07)
[2020-09-18 05:57] LABS: Basophils # (auto) 0.03 K/uL (0-0.2); Basophils % (auto) 0.6 %; Eosinophils # (auto) 0.05 K/uL (0-0.5); Hemoglobin 8.9 g/dL (12.0-16.0); Immature Granulocytes # (auto) 0.01 K/uL (0.00-0.02); Immature Granulocytes % (auto) 0.2 %; Lymphocytes # (auto) 0.75 K/uL (1.2-3.4); Lymphocytes % (auto) 14.7 %; Mean Corpuscular Hemoglobin 28.2 pg (25-34); Mean Corpuscular Hgb Conc 31.8 g/dL (32-36); Mean Corpuscular Volume 88.6 fL (80-100); Monocytes # (auto) 0.52 K/uL (0.11-0.59); Monocytes % (auto) 10.2 %; Neutrophils # (auto) 3.73 K/uL (1.4-6.5); Neutrophils % (auto) 73.3 %; Platelet Count 187 K/uL (130-400); RDW Coefficient of Variation 14.7 % (11.5-14.5); RDW Standard Deviation 47.7 fL (36.4-46.3); Red Blood Count 3.16 M/uL (4.2-5.4); White Blood Count 5.09 K/uL (4.8-10.8)
[2020-09-18] MEDS: ACETAMINOPHEN 500 MG TAB PO SCH ×3 (06:16→21:00)
[2020-09-18] MEDS: KETOROLAC TROMETHAMINE 15 MG/ML VIAL IV SCH ×5 (06:16→23:26)
[2020-09-18 06:26] LABS: Calcium 8.6 mg/dl (8.5-10.1); Est GFR (African American) 102.4; Est GFR (Non-African American) 88.4; Potassium 3.7 mmol/L (3.5-5.1)
[2020-09-18] MEDS ORDERED: dexAMETHasone 4 MG TAB PO SCH (08:00)
[2020-09-18] MEDS ORDERED: HYDROmorphone HCL 2 MG TAB PO PRN (08:18)
[2020-09-18] MEDS: MULTIVITAMIN TAB PO SCH (09:09)
[2020-09-18] MEDS: CARBIDOPA/LEVODOPA 25/100MG TAB PO SCH ×3 (09:09→20:55)
[2020-09-18] MEDS: MIRABEGRON ER 25 MG TAB PO SCH (09:09)
[2020-09-18] MEDS: CHOLECALCIFEROL 1,000 UNITS 25 MCG TAB PO SCH (09:09)
[2020-09-18] MEDS: ASPIRIN 81 MG ECTAB PO SCH ×2 (09:09→20:55)
[2020-09-18] MEDS: DOCUSATE SODIUM 100 MG CAP PO SCH ×3 (09:09→20:53)
[2020-09-18] MEDS: VITAMIN B COMPLEX TAB PO SCH (09:09)
[2020-09-18] MEDS: ASCORBIC ACID 500 MG TAB PO SCH (09:09)
[2020-09-18] MEDS: FERROUS GLUCONATE 324 MG TAB PO SCH ×2 (09:10→17:24)
[2020-09-18] MEDS: LIDOCAINE 5% 1 PATCH TD SCH (09:11)
--- NOTE | 2020-09-18 10:19 | Progress Notes ---
DATE: 09/18/2020 SUBJECTIVE: A 75-year-old female postoperative day 1 from a right total hip replacement. She is doing pretty well this morning. She is having a little trouble moving her leg, but pain seems to be controlled. No chest pain or shortness of breath. Not feeling dizzy or lightheaded. OBJECTIVE: VITAL SIGNS: Temperature 37.2. Vital signs stable. GENERAL: Shows a pleasant, elderly female. She is lying in bed. She has obvious Parkinson's disease and kind of stiff. EXTREMITIES: Examination of the right hip reveals the leg lengths to be equal. Hip is located. Thigh is soft and supple. She can dorsiflex and plantarflex her toes and foot appropriately. She is neurologically intact. LABORATORY DATA: Hemoglobin 8.9. Hematocrit 28.0. Electrolytes are stable. ASSESSMENT: A 75-year-old female with pretty significant Parkinson's disease, postoperative day 1 from a right total hip replacement done for advanced arthritis. She is doing okay. Pain seems to be controlled. She is neurologically intact. Hip is located. She is anemic, but without symptoms. PLAN: 1. DVT prophylaxis including thigh-high TEDs, SCDs, and aspirin twice a day. 2. PT/OT. Weight bear as tolerated. Right total hip protocol. 3. Pain control. We are going to really try and limit narcotics to avoid confusion issues. 4. Anemia. Continue iron supplementation. 5. Disposition: We had a discussion with her today. I really think it is best for her if she can go home with his assistance if possible. I think sending her to a halfway facility or rehab place, sets her up for further confusion and difficulties. We will see how therapy goes.
[2020-09-18] MEDS: ESCITALOPRAM OXALATE 10 MG TAB PO SCH (20:53)
[2020-09-18] MEDS: SENNA 8.6 MG TAB PO SCH (20:56)
[2020-09-18] MEDS: ATORVASTATIN 10 MG TAB PO SCH (20:56)
[2020-09-19] MEDS: KETOROLAC TROMETHAMINE 15 MG/ML VIAL IV SCH (05:23)
[2020-09-19] MEDS: ACETAMINOPHEN 500 MG TAB PO SCH (05:23)
[2020-09-19 06:15] LABS: Hematocrit (blood only) 27.9 % (37-47)
[2020-09-19] MEDS: ASPIRIN 81 MG ECTAB PO SCH (09:04)
[2020-09-19] MEDS: DOCUSATE SODIUM 100 MG CAP PO SCH (09:04)
[2020-09-19] MEDS: CARBIDOPA/LEVODOPA 25/100MG TAB PO SCH (09:04)
[2020-09-19] MEDS: VITAMIN B COMPLEX TAB PO SCH (09:04)
[2020-09-19] MEDS: CHOLECALCIFEROL 1,000 UNITS 25 MCG TAB PO SCH (09:05)
[2020-09-19] MEDS: MIRABEGRON ER 25 MG TAB PO SCH (09:05)
[2020-09-19] MEDS: FERROUS GLUCONATE 324 MG TAB PO SCH (09:05)
[2020-09-19] MEDS: ASCORBIC ACID 500 MG TAB PO SCH (09:05)
[2020-09-19] MEDS: MULTIVITAMIN TAB PO SCH (09:05)
[2020-09-19] MEDS: LIDOCAINE 5% 1 PATCH TD SCH (09:06)
--- NOTE | 2020-09-19 09:49 | Progress Notes ---
DATE: 09/19/2020 SUBJECTIVE: A 75-year-old white female postop day 2 from a right hip replacement. She is doing well. Pain is controlled. She has been getting around pretty well. No chest pain or shortness of breath. Not feeling dizzy or lightheaded. Really wants to get home. OBJECTIVE: VITAL SIGNS: Temperature 36.9. Vital signs stable. GENERAL: Shows a frail elderly female. She is sitting up in bed and eating breakfast and looks comfortable. EXTREMITIES: Examination of the right hip reveals incision to be clean, dry and intact. Hip is located. Leg lengths were equal. She is neurologically intact. LABORATORY DATA: Hemoglobin 9.0. Hematocrit 27.9. ASSESSMENT: A 75-year-old female with some underlying Parkinson's disease, postop day 2 from right hip replacement. She is doing well. I think she is getting around better than she was before surgery even at this time. PLAN: 1. DVT prophylaxis including thigh-high TEDs, SCDs, and aspirin twice a day. 2. PT/OT. Weight bear as tolerated. Right total hip protocol. 3. Pain control, doing okay with current pain regimen. Try and limit narcotics to avoid confusion. 4. Disposition: Plan to discharge to home with some home health, hopefully later today.
--- NOTE | 2020-09-23 06:54 | Discharge Summary ---
Date of Service September 23, 2020 Discharge Data Procedures Performed Operation Date: 09/17/20 07:00 Actual Procedures p Right Total Hip Arthroplasty(Right) - Eliot Garcia MD Hospital Course (1) Status post total hip replacement, right: This patient is a 75 year old female admitted on 09/17/20 and underwent total hip arthroplasty. She tolerated the procedure well and there were no complications. Transferred to the PACU post op and later to the orthopedic floor for further care. She was given ancef for antibiotic prophylaxis. She was also given JEFF stockings, SCDs, and aspirin for DVT prophylaxis. Hemoglobin, hematocrit, and vital signs were monitored during her hospital stay and remained stable. Did not require any blood transfusions. There were no complications d uring her hospital stay. By post op day #2 the patient was tolerating a regular diet, pain was reasonably controlled with oral pain medicine, and she was participating in physical therapy. On post op day #2 the patient was discharged home and set up with home health care. She was given printed discharge instructions including prescriptions for extra strength tylenol, aspirin, iron supplement, and dilaudid. Continue physical therapy, weight bearing as tolerated. Continue hip precautions. Continue JEFF stockings. Follow up approximately 2 weeks post op or sooner if there are problems or concerns. Coding Level of Care Code None Diagnoses Status post total hip replacement, right Z96.641
== END 2020-09-19 12:36 | disposition home health service (06) ==
LOC: ASU 05:05 → 3E 05:05

== ENCOUNTER 2021-09-29 05:40 | Inpatient (IN) ==
--- NOTE | 2021-09-26 14:17 | Anesthesiology Consultation ---
Date of Service September 26, 2021 Assessment & Plan (1) Encounter for pre-operative examination: - Anemia: Patient noted to have significant anemia with hgb 8.3 on 09/21/21 labs (most recent available comparison lab from 02/21/21 had hgb at 11.0). Per PCP addendum (09/22/21): "Patient's preadmission labs, CXR reviewed today. Anemia noted with Hgb 8.3 g/dL, HCT 30.5%. Almost certainly secondary to known malignancy.Otherwise labs stable. CXR shows no active disease. CT chest, abdomen/pelvis also completed today and reviewed. Patient is as medically stable as possible to proceed with planned right hemicolectomy." Case reviewed with Dr. Wilkerson. Will order CBCD and Type and cross 2 units for AM DOS (orders placed). Yadira at surgeon's office and Veronica at blood bank made aware. Yadira states she will discuss with surgeon and let us know if he wants anything further. - COVID screening: Per assessment on 09/26: Travel screen negative, no known COVID-19 positive contacts or current COVID-19 related symptoms. Surgeon arranging preop COVID testing (scheduled 09/27; [place]). Awaiting results. Chart Review Chart Review: Acceptable Risk for Surgery (pending CBC AM DOS) and Patient NOT seen in Pre Admission Testing History Surgery Operation Date: 09/29/21 09:45 Proposed Procedures p Laparoscopic Assisted Right Hemicolectomy Possible Open - Felipe Christianson, DO, FACS Height/Weight Height: 5 ft 2.5 in Weight: 56.699 kg Allergies Allergy/AdvReac Type Severity Reaction Status Date / Time Penicillins Allergy Unknown Unknown Verified 09/26/21 12:23 morphine AdvReac Intermediate Nausea Verified 09/26/21 14:09 pseudoephedrine AdvReac Intermediate "Makes me Verified 09/26/21 14:09 crazy" tramadol AdvReac Intermediate confusion, Verified 09/26/21 14:09 "loopy" Actifed Cold/Allergy TABS AdvReac Intermediate "Makes me Uncoded 09/26/21 14:09 crazy" Fish AdvReac Intermediate Nausea Uncoded 09/26/21 12:23 Medications Home Medications Medication Instructions Recorded Confirmed Last Taken coenzyme Q10 30 mg capsule (Co 30 mg PO HS 12/04/18 09/26/21 09/16/20 19:00 Q-10) multivitamin (Multiple Vitamins) 1 tab PO QAM 12/04/18 09/26/21 09/16/20 08:00 vitamin B complex 1 tab PO QAM 12/04/18 09/26/21 09/16/20 08:00 ascorbic acid (vitamin C) 500 mg 500 mg PO QAM tab 01/29/19 09/26/21 09/16/20 08:00 tablet cholecalciferol (vitamin D3) 50 2,000 units PO QAM cap 01/29/19 09/26/21 09/16/20 08:00 mcg (2,000 unit) capsule atorvastatin 10 mg tablet 10 mg PO HS #90 tab 08/20/20 09/26/21 09/16/20 19:00 carbidopa 25 mg-levodopa 100 mg 1.5 tab PO TID #135 tab 06/16/21 09/26/21 Unknown tablet metronidazole 500 mg tablet 500 mg PO .COMPLEX #3 tab 09/13/21 09/26/21 Unknown neomycin 500 mg tablet 500 mg PO .COMPLEX #3 tab 09/13/21 09/26/21 Unknown aspirin 81 mg tablet 81 mg PO QAM 09/26/21 09/26/21 Unknown escitalopram oxalate 5 mg tablet 5 mg PO QAM 09/26/21 09/26/21 Unknown ibandronate 150 mg tablet (Boniva) 150 mg PO .COMPLEX 09/26/21 09/26/21 Unknown mirabegron 25 mg tablet,extended 25 mg PO QAM 09/26/21 09/26/21 Unknown release 24 hr Past Medical History Medical History Adenocarcinoma of cecum Disorientation Patient will become anxious and "not act like herself" at night while inpatient at hospital d/t unfamiliar setting. Requests for family/ to be at bedside for her safety when possible. Fall High fall risk GERD (gastroesophageal reflux disease) Well controlled and stable Hx of compression fracture of spine T12 compression fracture (~07/2020) > treated with conservative management Hypercholesterolemia Hypertension "Well controlled" without meds currently Osteoarthritis Osteoporosis Parkinsonism Minor tremors (worse at night), improved with muscle relaxant Stress incontinence Past Family History Family History Sister Uterine cancer Mother Diabetes Breast cancer Family history of diabetes mellitus Father Hx of CABG Other No family history of adverse response to anesthesia Denies family history of Ovarian cancer Prostate cancer Myocardial infarction Colorectal cancer Past Surgical History Surgical History H/O colonoscopy 08/2021 (S) History of ankle surgery LEFT ANKLE (HARDWARE INTACT) History of appendectomy History of breast biopsy MULT. BENIGN History of tonsillectomy and adenoidectomy History of tooth extraction History of total abdominal hysterectomy and bilateral salpingo-oophorectomy Status post total hip replacement, right Social History Smoking Status: Never smoker Do You Dip or Chew Tobacco: No Hx Alcohol Use: No Hx Substance Use: No substance use type: does not use Lab Results Anesthesia Preop Results Results Anesthesia Widget: WBC 5.28 K/uL (4.8-10.8) 09/21/21 Hgb 8.3 g/dL (12.0-16.0) L 09/21/21 Hct 30.5 % (37-47) L 09/21/21 Plt 320 K/uL (130-400) 09/21/21 Na 142 mmol/L (136-145) 09/21/21 K 3.8 mmol/L (3.5-5.1) 09/21/21 Cl 109 mmol/L (98-107) H 09/21/21 CO2 28 mmol/L (21-32) 09/21/21 BUN 18 mg/dl (6-23) 09/21/21 Creat 0.58 mg/dl (0.6-1.2) L 09/21/21 Glucose Level 92 mg/dl (70-99(Fasting)) 09/21/21 Testing Electrocardiogram Date: 09/21/21 Sinus rhythm at 84 bpm. Borderline LAD. Voltage criteria for LVH. Chest X-Ray Date: 09/22/21 FINDINGS: A large hiatal hernia is again noted. Cardiomegaly is unchanged. There is no pneumothorax or pleural effusion. There is no evidence for pulmonary edema. Old right eighth rib fracture is incidentally noted. Severe T12 compression fracture is noted. This fracture was shown on CT of July 29, 2020 however vertebral body height loss has increased. IMPRESSION: No acute cardiopulmonary findings. Hiatal hernia. Stress Test Date: 09/03/20 Type: DSE Negative dobutamine stress echo/ECG for ischemia 92% MPHR. No chest pain. EF greater than 70%. No regional motion abnormalities. Mild concentric LVH. No significant valvular disease.
[2021-09-29] MEDS ORDERED: cefOXitin 2,000 MG in DEXTROSE 5% 50 ML IV SCH (06:00)
[2021-09-29] MEDS ORDERED: LR 15ML/HR IV SCH (06:00)
[2021-09-29 06:44] LABS: Hematocrit (blood only) 28.6 % (37-47); Hemoglobin 8.1 g/dL (12.0-16.0); Mean Corpuscular Hemoglobin 21.2 pg (25-34); Mean Corpuscular Hgb Conc 28.3 g/dL (32-36); Mean Corpuscular Volume 74.9 fL (80-100); Mean Platelet Volume 9.3 fL (7.4-10.4); Platelet Count 285 K/uL (130-400); RDW Coefficient of Variation 16.9 % (11.5-14.5); RDW Standard Deviation 46.2 fL (36.4-46.3); Red Blood Count 3.82 M/uL (4.2-5.4); White Blood Count 4.12 K/uL (4.8-10.8)
[2021-09-29] MEDS ORDERED: fentaNYL citrate 100 MCG/2 ML VIAL ONE ×2 (06:59→08:43)
[2021-09-29] MEDS ORDERED: KETAMINE 50 MG/5 ML SYRINGE ONE (06:59)
[2021-09-29] MEDS ORDERED: BUPIVACAINE 0.5 % 5 MG/1 ML MPF 30ML VIAL ONE (07:06)
[2021-09-29] MEDS ORDERED: ACETAMINOPHEN 1000 MG/100 ML IV IV ONE (07:07)
[2021-09-29] MEDS ORDERED: ALBUMIN HUMAN 5% 12.5 GM/250 ML VIAL IV ONE (07:07)
[2021-09-29] MEDS ORDERED: SUGAMMADEX SODIUM 200 MG/2 ML VIAL IV ONE (07:08)
[2021-09-29] MEDS ORDERED: BUPIVACAINE LIPOSOME 1.3% 266 MG/20 ML VIAL ONE (07:11)
[2021-09-29 07:17] LABS: Basophils # (auto) 0.03 K/uL (0-0.2); Basophils % (auto) 0.7 %; Eosinophils % (auto) 2.4 %; Hypochromasia Present; Lymphocytes # (auto) 0.82 K/uL (1.2-3.4); Lymphocytes % (auto) 19.9 %; Monocytes # (auto) 0.39 K/uL (0.11-0.59); Monocytes % (auto) 9.5 %; Neutrophils # (auto) 2.78 K/uL (1.4-6.5); Neutrophils % (auto) 67.5 %; Target Cells 1+
--- NOTE | 2021-09-29 07:19 | History & Physical Bridge Note ---
Date of Service September 29, 2021 History & Physical Bridge Note I have examined the patient, reviewed the History & Physical and in the interval since the performance of the History & Physical I have noted the following changes of clinical significance: no changes noted
[2021-09-29] MEDS ORDERED: LARYING-O-JET KIT (LTA) ONE (08:21)
[2021-09-29] MEDS ORDERED: ROCURONIUM BROMIDE 10 MG/ML 5 ML VIAL IV ONE (08:21)
[2021-09-29] MEDS ORDERED: ONDANSETRON INJ 2 MG/ML 2 ML VIAL ONE (08:21)
[2021-09-29] MEDS ORDERED: DEXAMETHASONE SOD INJ 4 MG/ML VIAL ONE (08:21)
[2021-09-29] MEDS ORDERED: PROPOFOL IV EMULSION 10 MG/ML 20 ML VIAL IV ONE (08:21)
[2021-09-29] MEDS ORDERED: LIDOCAINE 2% 2 ML VIAL/AMP(20MG/ML) INFIL ONE (08:21)
[2021-09-29] MEDS ORDERED: GLYCOPYRROLATE 0.2 MG/ML VIAL ONE (08:38)
[2021-09-29] MEDS ORDERED: HYDROmorphone INJ 1 MG/ML SYRINGE IV PRN (08:44)
[2021-09-29] MEDS ORDERED: ONDANSETRON INJ 2 MG/ML 2 ML VIAL IV PRN ×2 (08:44→11:45)
[2021-09-29] MEDS ORDERED: ePHEDrine sulfate 50 MG/ML AMP IV PRN (08:44)
[2021-09-29] MEDS ORDERED: fentaNYL citrate 100 MCG/2 ML VIAL IV PRN (08:44)
[2021-09-29] MEDS ORDERED: ATROPINE SULFATE 0.1 MG/ML 10ML SYR IV PRN (08:44)
--- NOTE | 2021-09-29 10:24 | Operative Report ---
PG Post Operative Report Pre & Post Diagnosis Operation Date: 09/29/21 07:15 Pre-Op Diagnosis: Right Colon Cancer Post-Op Diagnosis: Right Colon Cancer, liver lesion I identified the patient and participated in the time-out.: Yes Procedure Operation Date: 09/29/21 07:15 Actual Procedures p Laparoscopic Assisted Right Hemicolectomy, Liver Biopsy (Right) - Felipe Christianson DO, DILIP Surgeon Felipe Christianson DO, DILIP Trim Machine Adjuster Maxx Diana Estimated Blood Loss 20 Findings Consistent with Post-Op Diagnosis 2 cm liver lesion identified on initial laparoscopy. Wedge biopsy performed, frozen section returned benign lesion. Right hemicolectomy performed with medial to lateral dissection. Colon exteriorized, [id number] functional end-to-end anastomosis performed. Exparel injected. Specimens Right hemicolectomy Liver lesion Anesthesia Type General Complications none Disposition Accompanied Patient To Recovery: No Disposition: Recovery Room Indications 76-year-old female with newly diagnosed colon cancer at the cecum. Preoperative work-up was negative for metastatic disease. Plan for laparoscopic assisted right hemicolectomy. The risks of the procedure were discussed, all questions were answered, and the patient agreed to proceed with surgery as planned. Description of Procedure The patient had an antibiotic infused bowel prep overnight. The patient was properly identified, consented, and taken to the operating room where she was placed in the supine position. General endotracheal anesthesia was induced. SCDs and a safety belt were placed. Preoperative antibiotics were administered. A Gilmore catheter was placed. The patient's abdomen was prepped and draped in the standard sterile fashion. Surgical timeout was performed and all parties were in agreement that this was the correct patient and procedure to be performed and we continued as planned. A vertical midline infraumbilical incision was made with electrocautery and deepened down to the fascia with blunt dissection. The base of the umbilicus was grasped with a Gil. The Gil was elevated towards the ceiling and the fascia was incised with a knife. Stay sutures were placed on either side of the midline. A finger sweep revealed some omental adhesions to the anterior abdominal wall along her infraumbilical midline incision. These were taken down bluntly. The Aroldo trocar was then placed and the abdomen insufflated with carbon dioxide which the patient tolerated without incident. The laparoscope was inserted and the abdomen inspected. No damage from initial trocar placement was noted. During the inspection there was noted to be a suspicious lesion in the left lobe of the liver. This was dressed after placing the remaining ports. Next, 5 mm ports were then placed in the left upper quadrant and in the left lower quadrant with care not to damage the epigastric vessels. The patient was placed in Trendelenburg position and the rotated towards the left. There was still a few omental adhesions to the lower anterior abdominal wall, and these were taken down with harmonic scalpel. Once this was completed, a 5 mm trocar was placed in the midline just above the pubic symphysis with care not to damage the bladder. We turned our attention to the liver lesion. This was grasped and the harmonic scalpel was utilized to perform a wedge resection. This was passed off the table and sent as frozen section. It later returned a benign lesion. Hemostasis was achieved with electrocautery. A piece of Surgicel was placed in the liver bed at the resection site. This was inspected later and hemostasis was good. We then returned our attention to the colon. The small bowel was swept out of the way. The cecum was then grasped and elevated towards the anterior abdominal wall revealing the ileocolic vascular pedicle. The peritoneum just underneath this was incised with harmonic scalpel. Blunt dissection was then used to isolate the vessels along with the use of the harmonic scalpel. The vessels were circumferentially dissected. A smith loaded endoscopic stapler was then used to divide the ileocolic vein and artery at their base. Hemostasis appeared excellent. We then continued the dissection from a medial to lateral approach dissecting the retroperitoneal structures posteriorly away from the small bowel and colonic mesentery. We continued this dissection until we entered the lesser sac and continued laterally until the colon was nearly free of all adhesions except for the white line of Toldt. We then began dissection of the greater omentum off of the transverse colon mesentery. This was performed with blunt dissection and harmonic scalpel. Once the medial to lateral dissection was completed, we then performed a lateral dissection using the harmonic scalpel to take down the white line of Toldt along the right colon. The dissection was continued distally to the mid transverse colon and the hepatic flexure was mobilized. The distal ileum was freed from its peritoneal attachments. At this point the cecum appeared to reach easily to the anterior abdominal wall, and we decided to exteriorize the colon. Laparoscopy was ceased and the infraumbilical incision was extended superiorly around the umbilicus for a total length of approximately 7 cm. The wound protector was placed within the wound after the fascia was opened and then the colon was exteriorized. The colon reached easily as did the small bowel. A window was created in the mesentery and the ileum approximately 30 cm from the IC valve, and the small bowel was divided using a purple loaded endoscopic SHILPA stapler. The colon was then divided using a purple loaded endoscopic SHILPA stapler in the region of the proximal transverse colon. The mesentery was then divided using the harmonic scalpel. The right branch of the middle colic artery was divided near its origin during this portion of the procedure. The specimen was excised and passed off the table. We then proceeded to create a [id number] functional end-to-end ileocolic anastomosis. Towels were laid around the incision. The corners of the staple lines on the antimesenteric border of both the ileum and colon were excised creating enterotomies. A 60 mm purple loaded stapler was placed in each enterotomy and fired x2 to create the anastomosis. The prior staple lines were then completely excised using sequential firings of a purple loaded stapler. The staple line was then reinforced with 3-0 silk Lembert sutures. There was no evidence of a leak, and the anastomosis appeared patent. The mesenteric defect was not closed. Hemostasis appeared to be good and the anastomosis appeared to have no twist in it. The anastomosis was allowed to drop back into the abdomen. The GelPort was placed and the abdomen was reentered laparoscopically and hemostasis appeared good. The anastomosis appeared to lay well on the right side of the abdomen and appeared to have good blood supply. Laparoscopy was ceased and the periumbilical wound protector was removed. The fascia and skin of the midline incision was injected with Exparel mixed with 0. 5% Marcaine. The fascia was then closed with a running 0 PDS suture. The wound was irrigated and the incision was then closed with tana. The remaining port sites were closed with 4-0 Monocryl subcuticular sutures. A sterile dressing and a Tegaderm was placed over the midline incision. Dermabond was placed over the port site incisions. The patient was extubated in the operating room and taken to the PACU where she recovered without apparent incident. All sponge, instrument, and needle counts were correct. The patient tolerated the procedure well. The colon specimen was sent to Pathology. The physician's technical support assistant was present and scrubbed for the entirety of the case. He was critical in positioning the patient, prepping and draping, retraction and exposure, driving the laparoscope, resection of the specimen and creation of the anastomosis, closure the incisions, and placement of the dressings. I attest to the content of the Intraoperative Record and any orders documented therein. Any exceptions are noted below.
--- NOTE | 2021-09-29 10:57 | Anesthesiology Progress Note ---
Date of Service September 29, 2021 Anesthesia Post Procedure Vital Signs Vital Signs: Temp Pulse Pulse Resp BP Pulse Ox 09/29/21 10:50 83 17 139/62 100 09/29/21 10:40 88 19 141/78 H 100 09/29/21 10:32 36.1 C L 93 H 16 137/56 L 97 09/29/21 06:00 36.8 C 83 20 143/59 H 97 Transfer of Care Handoff Completed per policy Notes Mental Status: alert / awake / arousable and participated in evaluation Patient Amnestic to Procedure: Yes Nausea / Vomiting: adequately controlled Pain: adequately controlled Airway Patency, RR, SpO2: stable & adequate BP & HR: stable & adequate Hydration State: stable & adequate Anesthetic Complications: no major complications apparent and Pt Satisfied with anesthetic care
[2021-09-29] MEDS ORDERED: MoRPHine SULFATE 4 MG/ML 1 ML CARP\\VIAL IV PRN (11:45)
[2021-09-29] MEDS ORDERED: MoRPHine SULFATE 2 MG/ML CARP IV PRN (11:45)
[2021-09-29] MEDS: LACTATED RINGER'S 1,000 ML IV SCH ×2 (13:09→20:03)
[2021-09-29] MEDS: CARBIDOPA/LEVODOPA 25/100MG TAB PO SCH ×2 (14:19→20:03)
[2021-09-29] MEDS: ACETAMINOPHEN 1,000 MG/100 ML VIAL IV SCH ×2 (15:43→23:17)
[2021-09-29] MEDS: cefOXitin 2,000 MG in DEXTROSE 5% 50 ML IV SCH ×2 (15:43→20:02)
[2021-09-30] MEDS: cefOXitin 2,000 MG in DEXTROSE 5% 50 ML IV SCH ×2 (02:15→08:17)
[2021-09-30 06:52] LABS: BUN Creatinine Ratio 12.9 (10-20); Calcium 8.1 mg/dl (8.5-10.1); Creatinine Clr Calc Pharmacy 56.2 ml/min; Est GFR (African American) 98.2 ml/min; Est GFR (Non-African American) 84.8 ml/min; Potassium 3.6 mmol/L (3.5-5.1)
[2021-09-30 06:54] LABS: Mean Corpuscular Hemoglobin 20.5 pg (25-34); Mean Corpuscular Hgb Conc 27.3 g/dL (32-36); Mean Corpuscular Volume 75.3 fL (80-100); Mean Platelet Volume 9.5 fL (7.4-10.4); Platelet Count 259 K/uL (130-400); RDW Coefficient of Variation 17.1 % (11.5-14.5); RDW Standard Deviation 47.2 fL (36.4-46.3); Red Blood Count 2.92 M/uL (4.2-5.4); White Blood Count 6.92 K/uL (4.8-10.8)
[2021-09-30 07:06] LABS: Basophils # (auto) 0.01 K/uL (0-0.2); Basophils % (auto) 0.1 %; Eosinophils # (auto) 0.01 K/uL (0-0.5); Eosinophils % (auto) 0.1 %; Hypochromasia Present; Immature Granulocytes # (auto) 0.03 K/uL (0.00-0.02); Immature Granulocytes % (auto) 0.4 %; Lymphocytes % (auto) 14.5 %; Microcytosis Present; Monocytes # (auto) 0.77 K/uL (0.11-0.59); Monocytes % (auto) 11.1 %; Neutrophils % (auto) 73.8 %
[2021-09-30] MEDS ORDERED: SODIUM CHLORIDE 0.9% 250 ML IV PRN (07:27)
[2021-09-30] MEDS: LACTATED RINGER'S 1,000 ML IV SCH ×3 (07:33→19:59)
[2021-09-30] MEDS: ACETAMINOPHEN 1,000 MG/100 ML VIAL IV SCH ×2 (07:34→16:09)
[2021-09-30] MEDS: CARBIDOPA/LEVODOPA 25/100MG TAB PO SCH ×3 (07:43→20:19)
[2021-09-30] MEDS: MIRABEGRON ER 25 MG TAB PO SCH (07:43)
[2021-09-30] MEDS: ESCITALOPRAM OXALATE 10 MG TAB PO SCH (07:43)
[2021-09-30] MEDS: HEPARIN SOD 5,000 UNIT/0.5 ML VIAL SQ SCH ×2 (07:52→20:22)
--- NOTE | 2021-09-30 07:56 | Surgery Progress Note ---
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 POD #1 laparoscopic right hemicolectomy and laparoscopic liver biopsy for adenocarcinoma the colon with suspicious liver lesion that on frozen section was benign. Her preop labs showed likely iron deficiency anemia from her adenocarcinoma, labs's morning showed a slight drop in her hemoglobin and hematocrit. There was minimal blood loss and she has no signs of continued bleeding, this is likely anemia due to the malignancy and chronic disease. Passing flatus. Tolerated clear liquids yesterday. On exam she is afebrile stable vitals, abdomen soft, midline dressing with minimal serous strikethrough, port sites with Dermabond. No infection. WBC normal, H&H 12/21. Advance to full liquids, likely low fiber diet tomorrow. Decrease IV fluids. Transfused 2 units PRBCs. Deirdre Benson. Hopefully home over the weekend or early next week. Dr. Reeder covering over the weekend. Subjective pain control marginal but just had Ofirmev overnight, tolerating clears, no flatus Physical Exam Gastrointestinal (Abdomen): Inspection/Auscultation: + abdominal surgical incision (dressing dry); abdomen not distended Percussion/Palpation: abdomen soft Results & Data ([facility]) Vital Signs (Past 12 Hours) Vital Signs Temp Pulse Resp BP Pulse Ox 09/30/21 07:21 36.8 C 80 14 101/56 L 91 09/29/21 22:20 36.6 C 82 18 122/73 92 PG Care Time/CCT Total # of Minutes Spent Total Time Spent with Patient: Total time spent is greater than 50% in coordination of care (as documented) at patient's floor/unit and/or counseling patient: Coding Level of Care Code None Diagnoses Adenocarcinoma of cecum C18.0 Liver lesion, left lobe K76.9 History of liver biopsy Z98.890 Anemia associated with malignant neoplastic disease C80.1; D63.0
[2021-09-30] MEDS: oxyCODONE HCL IR 5 MG TAB (IMMEDIATE RELEASE) PO PRN (20:20)
[2021-10-01] MEDS: ACETAMINOPHEN 1,000 MG/100 ML VIAL IV SCH ×2 (00:18→09:36)
[2021-10-01 06:28] LABS: Basophils # (auto) 0.03 K/uL (0-0.2); Basophils % (auto) 0.4 %; Eosinophils % (auto) 4.2 %; Hematocrit (blood only) 28.1 % (37-47); Hemoglobin 8.2 g/dL (12.0-16.0); Immature Granulocytes # (auto) 0.03 K/uL (0.00-0.02); Immature Granulocytes % (auto) 0.4 %; Lymphocytes # (auto) 1.17 K/uL (1.2-3.4); Lymphocytes % (auto) 16.3 %; Mean Corpuscular Hemoglobin 22.7 pg (25-34); Mean Corpuscular Hgb Conc 29.2 g/dL (32-36); Mean Corpuscular Volume 77.8 fL (80-100); Mean Platelet Volume 9.4 fL (7.4-10.4); Monocytes # (auto) 0.58 K/uL (0.11-0.59); Monocytes % (auto) 8.1 %; Neutrophils # (auto) 5.05 K/uL (1.4-6.5); Neutrophils % (auto) 70.6 %; Platelet Count 240 K/uL (130-400); RDW Coefficient of Variation 17.2 % (11.5-14.5); RDW Standard Deviation 49.4 fL (36.4-46.3); Red Blood Count 3.61 M/uL (4.2-5.4); White Blood Count 7.16 K/uL (4.8-10.8)
[2021-10-01 06:49] LABS: BUN Creatinine Ratio 12.9 (10-20); Calcium 8.4 mg/dl (8.5-10.1); Creatinine Clr Calc Pharmacy 63.4 ml/min; Est GFR (African American) 102.2 ml/min; Est GFR (Non-African American) 88.2 ml/min; Potassium 3.4 mmol/L (3.5-5.1)
[2021-10-01] MEDS: CARBIDOPA/LEVODOPA 25/100MG TAB PO SCH ×3 (09:41→22:01)
[2021-10-01] MEDS: MIRABEGRON ER 25 MG TAB PO SCH (09:42)
[2021-10-01] MEDS: HEPARIN SOD 5,000 UNIT/0.5 ML VIAL SQ SCH ×2 (09:42→22:02)
[2021-10-01] MEDS: ESCITALOPRAM OXALATE 10 MG TAB PO SCH (09:43)
[2021-10-01] MEDS: LACTATED RINGER'S 1,000 ML IV SCH (09:51)
[2021-10-01] MEDS: oxyCODONE HCL IR 5 MG TAB (IMMEDIATE RELEASE) PO PRN ×2 (09:54→22:05)
--- NOTE | 2021-10-01 12:05 | Surgery Progress Note ---
Date of Service October 01, 2021 Assessment & Plan (1) Adenocarcinoma of cecum: Plan: POD #2 colon resection doing well given 2 PRBCs; hgb 8.2 advance diet ambulate Admission and Anticipated Discharge Date Admission Date: September 29, 2021 Subjective Doing well Passing flatus beginning to ambulate Pain controlled Review of Systems Constitutional: no fever and no chills Respiratory: no cough and no dyspnea Cardiovascular: no chest pain Gastrointestinal: no abdominal pain, no nausea and no vomiting Genitourinary: no dysuria Physical Exam Constitutional: well developed and well nourished Neck: trachea midline Respiratory: normal respiratory effort, lungs clear to auscultation Cardiovascular: RRR, no murmur, no edema Gastrointestinal (Abdomen): Inspection/Auscultation: normal bowel sounds and + abdominal surgical incision (clean and dry); abdomen not distended Percussion/Palpation: abdomen soft; abdomen nontender and no guarding Musculoskeletal: Head/Neck/Chest: normocephalic and head atraumatic Results & Data ([facility] [place]) Vital Signs (Past 12 Hours) Vital Signs Temp Pulse Resp BP Pulse Ox 10/01/21 07:45 36.9 C 77 16 146/74 H 92
[2021-10-02] MEDS: oxyCODONE HCL IR 5 MG TAB (IMMEDIATE RELEASE) PO PRN ×2 (05:59→19:56)
[2021-10-02 06:05] LABS: Basophils # (auto) 0.02 K/uL (0-0.2); Basophils % (auto) 0.3 %; Eosinophils # (auto) 0.35 K/uL (0-0.5); Hematocrit (blood only) 32.2 % (37-47); Hemoglobin 9.6 g/dL (12.0-16.0); Immature Granulocytes # (auto) 0.02 K/uL (0.00-0.02); Immature Granulocytes % (auto) 0.3 %; Lymphocytes # (auto) 1.02 K/uL (1.2-3.4); Lymphocytes % (auto) 14.4 %; Mean Corpuscular Hemoglobin 23.2 pg (25-34); Mean Corpuscular Hgb Conc 29.8 g/dL (32-36); Mean Platelet Volume 9.6 fL (7.4-10.4); Monocytes # (auto) 0.51 K/uL (0.11-0.59); Monocytes % (auto) 7.2 %; Neutrophils # (auto) 5.14 K/uL (1.4-6.5); Neutrophils % (auto) 72.8 %; Platelet Count 274 K/uL (130-400); RDW Coefficient of Variation 17.5 % (11.5-14.5); Red Blood Count 4.13 M/uL (4.2-5.4); White Blood Count 7.06 K/uL (4.8-10.8)
[2021-10-02 06:25] LABS: Calcium 8.3 mg/dl (8.5-10.1); Creatinine Clr Calc Pharmacy 65.5 ml/min; Est GFR (African American) 103.3 ml/min; Est GFR (Non-African American) 89.2 ml/min; Potassium 3.3 mmol/L (3.5-5.1)
[2021-10-02] MEDS: MIRABEGRON ER 25 MG TAB PO SCH (07:39)
[2021-10-02] MEDS: ESCITALOPRAM OXALATE 10 MG TAB PO SCH (07:39)
[2021-10-02] MEDS: HEPARIN SOD 5,000 UNIT/0.5 ML VIAL SQ SCH ×2 (07:39→21:22)
[2021-10-02] MEDS: CARBIDOPA/LEVODOPA 25/100MG TAB PO SCH ×3 (07:39→21:22)
--- NOTE | 2021-10-02 09:48 | Surgery Progress Note ---
Date of Service October 02, 2021 Assessment & Plan (1) Adenocarcinoma of cecum: Plan: POD #3 good progress taking po fairly well ambulate possibly home in AM H/H good Present on Admission?: Yes Admission and Anticipated Discharge Date Admission Date: September 29, 2021 Subjective bowel function returning walking only OK taking po well AF VSS Review of Systems Constitutional: no fever and no chills Respiratory: no cough and no dyspnea Cardiovascular: no chest pain Gastrointestinal: + abdominal pain; no nausea and no vomiting Genitourinary: no dysuria Physical Exam Constitutional: well developed and well nourished Neck: trachea midline Respiratory: normal respiratory effort, lungs clear to auscultation Cardiovascular: RRR, no murmur, no edema Gastrointestinal (Abdomen): Inspection/Auscultation: abdomen normal to inspection, normal bowel sounds and + abdominal surgical incision; abdomen not distended Percussion/Palpation: + abdomen tender and abdomen soft Results & Data ([facility]) Vital Signs (Past 12 Hours) Vital Signs Temp Pulse Resp BP Pulse Ox 10/02/21 07:17 36.7 C 78 16 137/71 92 10/01/21 22:08 36.7 C 77 18 170/80 H 91
[2021-10-02] MEDS ORDERED: ONDANSETRON INJ 2 MG/ML 2 ML VIAL IV PRN ×2 (18:17→18:20)
[2021-10-03 06:25] LABS: Basophils # (auto) 0.01 K/uL (0-0.2); Basophils % (auto) 0.1 %; Eosinophils # (auto) 0.05 K/uL (0-0.5); Eosinophils % (auto) 0.7 %; Hematocrit (blood only) 33.7 % (37-47); Hemoglobin 9.8 g/dL (12.0-16.0); Immature Granulocytes # (auto) 0.02 K/uL (0.00-0.02); Immature Granulocytes % (auto) 0.3 %; Lymphocytes # (auto) 0.76 K/uL (1.2-3.4); Lymphocytes % (auto) 10.5 %; Mean Corpuscular Hemoglobin 22.8 pg (25-34); Mean Corpuscular Hgb Conc 29.1 g/dL (32-36); Mean Corpuscular Volume 78.6 fL (80-100); Mean Platelet Volume 9.8 fL (7.4-10.4); Monocytes # (auto) 0.54 K/uL (0.11-0.59); Monocytes % (auto) 7.4 %; Neutrophils # (auto) 5.88 K/uL (1.4-6.5); Platelet Count 298 K/uL (130-400); RDW Coefficient of Variation 18.3 % (11.5-14.5); RDW Standard Deviation 52.1 fL (36.4-46.3); Red Blood Count 4.29 M/uL (4.2-5.4); White Blood Count 7.26 K/uL (4.8-10.8)
[2021-10-03 06:38] LABS: Calcium 8.3 mg/dl (8.5-10.1); Creatinine Clr Calc Pharmacy 62.4 ml/min; Est GFR (African American) 101.7 ml/min; Est GFR (Non-African American) 87.7 ml/min; Potassium 3.3 mmol/L (3.5-5.1)
[2021-10-03] MEDS ORDERED: POTASSIUM CHLORIDE CRTAB 20 MEQ TABCR PO STA (07:42)
[2021-10-03] MEDS ORDERED: ACETAMINOPHEN 325 MG TAB PO PRN (08:05)
--- NOTE | 2021-10-03 08:05 | Surgery Progress Note ---
Date of Service October 03, 2021 Assessment & Plan (1) Adenocarcinoma of cecum: Plan: POD#4 laparoscopic assisted R hemicolectomy WBC 7, Hbg stable at 9.8, K: 3.3 Patient having + bowel function Tolerating a diet, some nausea yesterday but resolved Will evaluate later today, if doing well potentially discharge to home. She and believe they will manage okay at home Pt asked to f/u in clinic with Dr. Christianson in 1-2 weeks Admission and Anticipated Discharge Date Admission Date: September 29, 2021 Supervising Physician Co-Signing Physician Notes Patient seen and examined, labs reviewed, agree with above. Status post laparoscopic right hemicolectomy. Tolerating low fiber diet, good return of bowel function. On exam she is afebrile stable vitals. Port incisions with Dermabond, midline incision with tana, no evidence of infection. Labs unremarkable, H&H stable. Initial physical therapy assessment suggested [facility] facility, will discuss with them. She can likely discharge to home today or tomorrow, may need home health. Follow-up in 1 to 2 weeks in surgery clinic. Wound care instructions and activity restrictions reviewed, return precautions given. Subjective Patient says she is feeling better. Had some nausea yesterday (no emesis) that is resolved this AM. She is tolerating a diet. Passing gas/BM. Pain is minimal. Physical Exam Physical Exam: awake Respiratory: normal respiratory effort Gastrointestinal (Abdomen): Inspection/Auscultation: + abdominal surgical incision (c/d/i with midline tana); abdomen not distended Percussion/Palpation: abdomen soft; abdomen nontender Results & Data ([facility]) Vital Signs (Past 12 Hours) Vital Signs Temp Pulse Pulse Resp BP Pulse Ox 10/03/21 07:46 37 C 78 16 140/72 91 10/02/21 22:33 37.0 C 87 17 154/78 H 92 PG Care Time/CCT Total # of Minutes Spent Total Time Spent with Patient: Total time spent is greater than 50% in coordination of care (as documented) at patient's floor/unit and/or counseling patient: Coding Level of Care Code None Diagnoses Adenocarcinoma of cecum C18.0
[2021-10-03] MEDS: MIRABEGRON ER 25 MG TAB PO SCH (09:10)
[2021-10-03] MEDS: HEPARIN SOD 5,000 UNIT/0.5 ML VIAL SQ SCH (09:10)
[2021-10-03] MEDS: ESCITALOPRAM OXALATE 10 MG TAB PO SCH (09:10)
[2021-10-03] MEDS: CARBIDOPA/LEVODOPA 25/100MG TAB PO SCH ×2 (09:11→14:08)
--- NOTE | 2021-10-03 14:34 | Communication Note ---
Date of Service: October 03, 2021 Patient doing clinically well s/p R hemicolectomy. She is tolerating a low fiber diet, pain controlled, and she is having + bowel function. Normal WBC count, stable Hbg, VSS. She is well enough for discharge from the hospital. PT has worked with the patient over the weekend as well as today and have made recommendations for half-way facility. This information was relayed to the patient, patient's , and patient's daughter in the room. says he can manage the patient at home on his own with the help of home health services. He prefers to take her home rather than pursuing recommendations for nursing facility. He is aware that he will need to be with patient around the clock for her needs. Daughter says she lives close enough to help out as needed as well and feels that her mother is close to her baseline. Case management met with the family and has set up Home Health Care and Home PT services that will start this upcoming Sunday. We will plan on discharging the patient to home today with above plan in place. Discharge instructions reviewed and they expressed understanding.
--- NOTE | 2021-10-05 13:45 | Discharge Summary ---
Date of Service October 03, 2021 Principal Diagnosis Colon cancer Discharge Exam Constitutional WD/WN, vitals as above Gastrointestinal (Abdomen) Inspection/Auscultation: + abdominal surgical incision (clean, dry); abdomen not distended Percussion/Palpation: abdomen soft Discharge Data Allergies Allergy/AdvReac Type Severity Reaction Status Date / Time Fish Containing Products Allergy Unknown Unknown Verified 10/03/21 08:20 fish derived Allergy Unknown Unknown Verified 10/03/21 08:20 fish oil Allergy Unknown Unknown Verified 10/03/21 08:20 Penicillins Allergy Unknown Unknown Verified 09/29/21 06:15 morphine AdvReac Intermediate Nausea Verified 09/29/21 06:15 pseudoephedrine AdvReac Intermediate "Makes me Verified 09/29/21 06:15 crazy" tramadol AdvReac Intermediate confusion, Verified 09/29/21 06:15 "loopy" Procedures Performed Operation Date: 09/29/21 07:15 Actual Procedures p Laparoscopic Assisted Right Hemicolectomy, Liver Biopsy (Right) - Felipe Christianson DO, FACS Hospital Course (1) Adenocarcinoma of cecum: 76 y/o female with cecal cancer was taken to the operating room for laparoscopic assisted right hemicolectomy. She was transferred to the surgical floor and started on clear liquids. On POD 1 her hemoglobin dropped to 6 and had been 8 preoperatively. Although asymptomatic, she was transfused 2 units PRBCs and remained stable for the remainder of admission. She was started on full liquids on day 2. She did have some nausea after beginning low fiber diet. By the next day (POD 4) she was having multiple loose BMs and nausea had improved. Her hgb was 9. She was stable for discharge home. Total Time Total Time Spent Total Time Spent (In Minutes): 15 Discharge Plan Discharge Items Patient Disposition: Home - Self-Care Reason For Visit: Right Colon Cancer Discharge Diagnosis: right colon resection Activity: Per Instructions section Lifting: No more than 10 pounds Bathing Comment: may shower; no soaking in tubs/pools Exercise/Sports: Wait until after follow-up appointment Driving/Machine Use: no driving until cleared by surgeon Non-emergency contact: Surgeon Call non-emergency contact if: you have any medication questions, your symptoms worsen, your pain is not controlled, your pain is worsening, your pain is concerning for you, you have a fever, your temperature is above 101.5, your wound has increased redness, your wound has increased drainage and your wound pain has increased Follow-up/Referrals: Sahra Terrell CRNP [Primary Care Provider] - 10/10/21 3:00 pm Felipe Christianson DO, FACS [Physician] - (Please call to schedule follow up in clinic within 1-2 weeks for staple removal) Diet: Low Fiber Addtl Attending Provider Instructions: Please continue on a low fiber diet until follow up in clinic You may purchase Tylenol and/or Ibuprofen over the counter if needed for pain control Pending Studies at Discharge: Yes Studies:: surgical pathology Stand-Alone Forms: [facility] Medications and DC Order Prescriptions: New oxycodone 5 mg tablet 5 mg PO .[id number] PRN (Reason: pain, for initial therapy, max 6 tabs per day) Qty: 6 RF: 0 Continued atorvastatin 10 mg tablet 10 mg PO HS Qty: 90 RF: 3 carbidopa-levodopa 25-100 mg tablet 1.5 tab PO TID Qty: 135 RF: 5 ibandronate [Boniva] 150 mg tablet 150 mg PO .COMPLEX Qty: 12 RF: 3 coenzyme Q10 [Co Q-10] 30 mg capsule 30 mg PO HS RF: 0 multivitamin [Multiple Vitamins] tablet 1 tab PO QAM RF: 0 vitamin B complex tablet 1 tab PO QAM RF: 0 ascorbic acid (vitamin C) 500 mg tablet 500 mg PO QAM RF: 0 cholecalciferol (vitamin D3) 2,000 unit capsule 2,000 units PO QAM RF: 0 escitalopram oxalate 5 mg tablet 5 mg PO QAM RF: 0 mirabegron 25 mg tablet extended release 24 hr 25 mg PO QAM RF: 0 aspirin 81 mg Tablet 81 mg PO QAM RF: 0 Discontinued metronidazole 500 mg tablet 500 mg PO .COMPLEX Qty: 3 RF: 0 neomycin 500 mg tablet 500 mg PO .COMPLEX Qty: 3 RF: 0 Discharge Orders: Discharge Order (Routine); Ordered 10/03/21 Ordered By: Julianna Mcclelland Admission Data Admit Date/Time: 09/29/21 10:30 Attending Provider: Felipe Christianson Admit Provider: Felipe Christianson Primary Care Provider: Sahra Terrell Other Providers: [facility],Home Health Other Interventions: Discharge Summary Assessment (RN) Last Done: 10/03/21 14:56 Coding Level of Care Code D/C DAY MANAGEMENT <30 MINS Diagnoses Adenocarcinoma of cecum C18.0
== END 2021-10-03 15:43 | disposition home health service (06) | DRG 331 ==
LOC: ASU 05:40 → 3W 10:30

== ENCOUNTER 2024-04-08 15:44 | Inpatient (IN) ==
--- NOTE | 2024-04-08 16:16 | Emergency Department Note ---
History of Present Illness General Chief complaint: Weakness Time Seen by Provider: 04/08/24 16:03 History of Present Illness Provider complaint: Weakness 79-year-old female presents emergency department for weakness. Patient reportedly has been having difficulty walking. She denies any fevers headache chest pain difficulty breathing nausea vomiting or diarrhea. Home Medications Medication Instructions Recorded Confirmed Type coenzyme Q10 30 mg capsule (Co 30 mg PO HS 12/04/18 04/08/24 History Q-10) multivitamin (Multiple Vitamins 1 tab PO QAM 12/04/18 04/08/24 History tablet) vitamin B complex 1 tab PO QAM 12/04/18 04/08/24 History ascorbic acid (vitamin C) 500 mg 500 mg PO QAM 01/29/19 04/08/24 History tablet cholecalciferol (vitamin D3) 50 2,000 units PO QAM 01/29/19 04/08/24 History mcg (2,000 unit) capsule atorvastatin 10 mg tablet 10 mg PO HS #90 tabs 11/06/23 04/08/24 Rx carbidopa 25 mg-levodopa 100 mg 1.5 tab PO TID #135 tabs 11/06/23 04/08/24 Rx tablet Myrbetriq 25 mg tablet,extended 25 mg PO QAM #90 tabs 02/01/24 04/08/24 Rx release (mirabegron) Wheelchair (Manual) (Manual #1 ea 02/05/24 04/08/24 Rx Wheelchair) aspirin 81 mg tablet,delayed 81 mg PO QAM 04/08/24 04/08/24 History release ibandronate 150 mg tablet 150 mg PO MONTHLY 04/08/24 04/08/24 History Allergies Allergy/AdvReac Type Severity Reaction Status Date / Time Fish Containing Products Allergy Unknown Unknown Verified 04/08/24 19:04 fish derived Allergy Unknown Unknown Verified 04/08/24 19:04 fish oil Allergy Unknown Unknown Verified 04/08/24 19:04 Penicillins Allergy Unknown Unknown Verified 04/08/24 19:04 morphine AdvReac Intermediate Nausea Verified 04/08/24 19:04 pseudoephedrine AdvReac Intermediate "Makes me Verified 04/08/24 19:04 crazy" tramadol AdvReac Intermediate confusion, Verified 04/08/24 19:04 "loopy" Past Med/Surg History Problem List (Updated 04/09/24 @ 00:24 by Pardeep Nickerson MD) Acute UTI (Acute) Dementia Hx of compression fracture of spine T12 compression fracture (~07/2020) > treated with conservative management Anemia associated with malignant neoplastic disease History of liver biopsy History of excisional biopsy of liver lesion during colectomy for cancer, frozen section benign Liver lesion, left lobe Vitamin D deficiency (Acute) Urge and stress incontinence (Acute) Postmenopausal atrophic vaginitis (Acute) Osteoporosis (Acute) Osteoarthritis of right hip (Acute) Impaired fasting glucose (Acute) Gait disturbance (Acute) Esophageal reflux (Acute) Dry eye syndrome (Acute) Anxiety (Acute) Allergic rhinitis (Acute) Rib pain (Acute) Degenerative joint disease of right hip Mass of soft tissue Nephrolithiasis Renal artery aneurysm High serum chloride (Acute) Encephalopathy E. coli UTI Abnormal EKG HTN (hypertension) Adenocarcinoma of cecum Hypertension (Acute) "Well controlled" without meds currently Hypercholesterolemia (Acute) Fall (Acute) High fall risk Parkinsonism Minor tremors (worse at night), improved with muscle relaxant Medical History Encounter for pre-operative examination Disorientation Patient will become anxious and "not act like herself" at night while inpatient at hospital d/t unfamiliar setting. Requests for family/ to be at bedside for her safety when possible. 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 BENIGN History of tooth extraction History of tonsillectomy and adenoidectomy History of total abdominal hysterectomy and bilateral salpingo-oophorectomy Family History Sister Uterine cancer Mother Diabetes Breast cancer Family history of diabetes mellitus Father Hx of CABG Other No family history of adverse response to anesthesia Denies family history of Ovarian cancer Prostate cancer Myocardial infarction Colorectal cancer Social History Smoking Status: Never smoker Second Hand Exposure: No; Do You Dip or Chew Tobacco: No; Hx Alcohol Use: No Hx Substance Use: No Preferred Language: Malawian Communication Ability: Effective Visual Impairment: No Limitations Hearing Ability: Normal Clinical Psychology Teacher Required: No Beliefs That Will Affect Care: None marital status: Current Living Situation: Spouse Current Living Situation Comment: IS PRIMARY CAREGIVER current occupational status: retired 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 How many Children do You have: 1 Other Information That Helps Us Care for You: No Feels Safe at Home: Yes Safety Concerns: Feels Safe At This Time Childhood Exposure to Second-Hand Smoke: No Diet: regular Diet Comment: low fat caffeine: Yes Dental Care, Regularly: No Physical Activity Frequency: Does not Exercise Seatbelt Use: always Sunscreen Use: No (she does not go out ) Assistive Devices: Denture - Upper, Denture - Lower, Glasses and Walker Physical Exam Vital Signs Vital Signs - 24 hr 04/08/24 15:54 04/08/24 15:54 04/08/24 15:54 Temperature 37.0 C Temperature Source Oral Pulse Rate 72 Pulse Rate [Right Finger] 71 Pulse Rhythm [Right Finger] Pulse Strength [Right Finger] Respiratory Rate 20 20 Respiratory Effort / Characteristics Non-Labored Spontaneous Non-Labored Spontaneous Respiratory Depth Respiratory Pattern Blood Pressure 137/85 Blood Pressure [Right Arm] 137/85 Blood Pressure Mean 102 Blood Pressure Mean [Right Arm] 102 Blood Pressure Position Lying Blood Pressure Position [Right Arm] Lying Pulse Oximetry 93 95 95 Oxygen Delivery Method Room Air Room Air Room Air Oxygen Flow Rate 0 Sepsis Recent Fever Within 48 Hours No Sepsis New/Unexplained Change in Mental Status No Sepsis Action Taken by Nursing No Action Required 04/08/24 16:00 04/08/24 16:04 04/08/24 16:11 Temperature Temperature Source Pulse Rate 70 73 Pulse Rate [Right Finger] Pulse Rhythm [Right Finger] Pulse Strength [Right Finger] Respiratory Rate 17 Respiratory Effort / Characteristics Respiratory Depth Respiratory Pattern Blood Pressure 137/85 Blood Pressure [Right Arm] Blood Pressure Mean 87 Blood Pressure Mean [Right Arm] Blood Pressure Position Blood Pressure Position [Right Arm] Pulse Oximetry 95 Oxygen Delivery Method Room Air Oxygen Flow Rate Sepsis Recent Fever Within 48 Hours Sepsis New/Unexplained Change in Mental Status Sepsis Action Taken by Nursing 04/08/24 16:11 04/08/24 16:41 04/08/24 16:57 Temperature Temperature Source Pulse Rate Pulse Rate [Right Finger] 73 73 72 Pulse Rhythm [Right Finger] Pulse Strength [Right Finger] Respiratory Rate 17 17 17 Respiratory Effort / Characteristics Non-Labored Spontaneous Non-Labored Spontaneous Non-Labored Spontaneous Respiratory Depth Respiratory Pattern Blood Pressure Blood Pressure [Right Arm] 137/85 137/85 137/85 Blood Pressure Mean Blood Pressure Mean [Right Arm] 102 102 102 Blood Pressure Position Blood Pressure Position [Right Arm] Lying Lying Lying Pulse Oximetry 95 95 95 Oxygen Delivery Method Room Air Room Air Room Air Oxygen Flow Rate Sepsis Recent Fever Within 48 Hours Sepsis New/Unexplained Change in Mental Status Sepsis Action Taken by Nursing 04/08/24 17:34 04/08/24 19:00 Temperature Temperature Source Pulse Rate Pulse Rate [Right Finger] 57 L 78 Pulse Rhythm [Right Finger] Regular Pulse Strength [Right Finger] Normal Respiratory Rate 18 20 Respiratory Effort / Characteristics Non-Labored Spontaneous Non-Labored Spontaneous Respiratory Depth Normal Respiratory Pattern Regular Blood Pressure Blood Pressure [Right Arm] 132/86 131/79 Blood Pressure Mean Blood Pressure Mean [Right Arm] 101 96 Blood Pressure Position Blood Pressure Position [Right Arm] Lying Lying Pulse Oximetry 95 97 Oxygen Delivery Method Room Air Room Air Oxygen Flow Rate Sepsis Recent Fever Within 48 Hours Sepsis New/Unexplained Change in Mental Status Sepsis Action Taken by Nursing Physical Exam HENT: Exam performed. -Head: Normocephalic and atraumatic. -Right Ear: External ear normal. No mastoid erythema -Left Ear: External ear normal. No mastoid erythema EYES: Conjunctivae and EOM are normal. Pupils are equal, round, and reactive to light. Right eye exhibits no discharge. Left eye exhibits no discharge. No scleral icterus. NECK: Normal range of motion. Neck supple. No JVD present. CV: Normal rate, regular rhythm, normal heart sounds and intact distal pulses. There is no peripheral edema. Palpable radial pulses bue. PULM/CHEST: Effort normal and breath sounds normal. No respiratory distress. No stridor. She has no wheezes. She has no rales. -Chest Wall: She exhibits no tenderness. ABD: The abdomen is soft. There is no tenderness. There is no rebound, no guarding NEURO: Masked face. Mild cogwheel rigidity. No cranial nerve deficit or sensory deficit. Course Course 1603: The patient was evaluated in room B8. A complete history and physical exam was performed Cardiac monitoring: An order was placed for continuous cardiac monitoring. The monitor shows a rate of 70 with sinus rhythm interpreted by me 1857: Vital signs stable. Imaging is unremarkable. Labs are unremarkable with exception of urinalysis positive for UTI. Discussed results with the family and daughter at bedside. Daughter states they would prefer that the patient be admitted so she be placed in a rehab facility as they have been trying to arrange it from home but have been having difficulty doing that. Antibiotics ordered for the patient. [facility]. Administered Medications Atorvastatin Calcium (Atorvastatin 10 Mg Tab) 10 mg PO HS ROCK Stop: 05/08/24 22:05 Last Admin: 04/08/24 23:39 Dose: 10 mg Documented By: WILMAR Carbidopa/Levodopa (Carbidopa/Levodopa 25/100mg Tab) 1.5 tab PO TID ROCK Stop: 05/08/24 22:05 Last Admin: 04/08/24 23:38 Dose: 1.5 tab Documented By: WILMAR Heparin Sodium (Porcine) (Heparin Sod 5,000 Unit/0.5 Ml Vial) 5,000 units SQ Q12 ROCK Stop: 05/08/24 22:05 Last Admin: 04/08/24 23:39 Dose: 5,000 units Documented By: WILMAR Potassium Chloride/Sodium Chloride (Normal Saline W/20 Meq Kcl) 20 meq in 1,000 mls @ 80 mls/hr IV .[id number] ROCK Stop: 04/09/24 08:44 Last Admin: 04/08/24 21:11 Dose: 80 mls/hr Documented By: CHILO Discontinued Medications Ceftriaxone Sodium (Rocephin) 1,000 mg in 50 mls @ 100 mls/hr IV NOW STA Stop: 04/08/24 20:41 Last Infusion: 04/08/24 21:48 Dose: Infused Documented By: Admin: 04/08/24 21:08 Dose: 100 mls/hr Documented By: CHILO Medical Decision Making Laboratory Data Attestation: I reviewed the patient's lab results. 04/08/24 16:00 04/08/24 16:00 Lab Results 04/08/24 04/08/24 04/08/24 Range/Units 16:00 16:24 17:19 WBC 6.19 (4.8-10.8) K/ul RBC 4.75 (4.20-5.40) M/uL Hgb 14.6 (12.0-16.0) g/dl Hct 43.5 (37.0-47.0) % MCV 91.6 (80.0-100.0) fL MCH 30.7 (25.0-34.0) pg MCHC 33.6 (32.0-36.0) g/dL RDW Std Deviation 46.5 H (36.4-46.3) fL RDW Coeff of Griselda 13.8 (11.5-14.5) % Plt Count 185 (130-400) K/uL MPV 10.4 (9.4-12.4) fL Immature Gran % (Auto) 0.5 % Neut % (Auto) 69.9 % Lymph % (Auto) 21.5 % [place] % (Auto) 6.0 % Eos % (Auto) 1.6 % Baso % (Auto) 0.5 % Neut # (Auto) 4.33 (1.40-6.50) K/uL Lymph # (Auto) 1.33 (1.20-3.40) K/uL [place] # (Auto) 0.37 (0.11-0.59) K/uL Eos # (Auto) 0.10 (0.00-0.50) K/uL Baso # (Auto) 0.03 (0.00-0.20) K/uL Immature Gran # (Auto) 0.03 (0.01-0.20) K/uL PT Cancelled 11.3 INR Cancelled 1.0 APTT Cancelled 23 PTT Ratio Cancelled 0.9 Sodium 143 (136-145) mmol/L Potassium 3.4 L (3.5-5.1) mmol/L Chloride 106 (98-107) mmol/L Carbon Dioxide 30 (21-32) mmol/L Anion Gap 7 (3-11) BUN 13 (6-23) mg/dl Creatinine 0.57 L (0.6-1.2) mg/dl Est Cr Clr Drug Dosing 61.4 ml/min eGFR 92.96 BUN/Creatinine Ratio 22.8 H (10-20) Glucose 100 H (70-99(Fasting)) mg/dl Lactate 1.0 (0.4-2.0) mmol/L Calcium 9.7 (8.6-10.3) mg/dl Magnesium 2.3 (1.7-2.4) mg/dl Total Bilirubin 0.7 (0.2-1.0) mg/dl Direct Bilirubin 0.1 (0-0.2) mg/dl AST 29 (13-39) U/L ALT 4 L (7-52) U/L Alkaline Phosphatase 66 (34-104) U/L Troponin I High Sens 4.7 (0-14) pg/ml Total Protein 6.6 (6.0-8.3) gm/dl Albumin 3.7 (3.4-5.0) gm/dl Procalcitonin < 0.02 (0-0.5) ng/ml Urine Color Urine Appearance (Clear) Urine pH (4.5-7.5) Ur Specific [place] (1.000-1.030) Urine Protein (Negative) Urine Glucose (UA) (Negative) Urine Ketones (Negative) Urine Blood (Negative) Urine Nitrite (Negative) Urine Bilirubin (Negative) Urine Urobilinogen (Negative) Ur Leukocyte Esterase (Negative) Urine WBC (Auto) (0-5) /hpf Urine RBC (Auto) (0-2) /hpf U Hyaline Cast (Auto) (0-2) /lpf U Epithel Cells (Auto) (0-2) /hpf Urine Bacteria (Auto) (None Seen) 04/08/24 Range/Units 17:59 WBC (4.8-10.8) K/ul RBC (4.20-5.40) M/uL Hgb (12.0-16.0) g/dl Hct (37.0-47.0) % MCV (80.0-100.0) fL MCH (25.0-34.0) pg MCHC (32.0-36.0) g/dL RDW Std Deviation (36.4-46.3) fL RDW Coeff of Griselda (11.5-14.5) % Plt Count (130-400) K/uL MPV (9.4-12.4) fL Immature Gran % (Auto) % Neut % (Auto) % Lymph % (Auto) % [place] % (Auto) % Eos % (Auto) % Baso % (Auto) % Neut # (Auto) (1.40-6.50) K/uL Lymph # (Auto) (1.20-3.40) K/uL [place] # (Auto) (0.11-0.59) K/uL Eos # (Auto) (0.00-0.50) K/uL Baso # (Auto) (0.00-0.20) K/uL Immature Gran # (Auto) (0.01-0.20) K/uL PT INR APTT PTT Ratio Sodium (136-145) mmol/L Potassium (3.5-5.1) mmol/L Chloride (98-107) mmol/L Carbon Dioxide (21-32) mmol/L Anion Gap (3-11) BUN (6-23) mg/dl Creatinine (0.6-1.2) mg/dl Est Cr Clr Drug Dosing ml/min eGFR BUN/Creatinine Ratio (10-20) Glucose (70-99(Fasting)) mg/dl Lactate (0.4-2.0) mmol/L Calcium (8.6-10.3) mg/dl Magnesium (1.7-2.4) mg/dl Total Bilirubin (0.2-1.0) mg/dl Direct Bilirubin (0-0.2) mg/dl AST (13-39) U/L ALT (7-52) U/L Alkaline Phosphatase (34-104) U/L Troponin I High Sens (0-14) pg/ml Total Protein (6.0-8.3) gm/dl Albumin (3.4-5.0) gm/dl Procalcitonin (0-0.5) ng/ml Urine Color Yellow Urine Appearance Clear (Clear) Urine pH 6.5 (4.5-7.5) Ur Specific [place] 1.010 (1.000-1.030) Urine Protein Negative (Negative) Urine Glucose (UA) Negative (Negative) Urine Ketones Negative (Negative) Urine Blood Negative (Negative) Urine Nitrite Positive A (Negative) Urine Bilirubin Negative (Negative) Urine Urobilinogen Negative (Negative) Ur Leukocyte Esterase Trace H (Negative) Urine WBC (Auto) 6-10 H (0-5) /hpf Urine RBC (Auto) 0-2 (0-2) /hpf U Hyaline Cast (Auto) 0-2 (0-2) /lpf U Epithel Cells (Auto) 0-2 (0-2) /hpf Urine Bacteria (Auto) 2+ H (None Seen) Imaging Data Radiologist's Impression: Chest X-Ray 04/08/24 16:11 XR chest 1V portable HISTORY: 79 years-old Female Sepsis acute sepsis COMPARISON: 09/22/2021 chest radiograph, chest CT 05/04/2022 TECHNIQUE: AP view of the chest FINDINGS: Cardiomegaly. Hiatal hernia. Atherosclerosis of the aorta. No pneumothorax, large pleural effusion or overt pulmonary edema. Mild bibasilar atelectasis. Bones appear grossly intact. IMPRESSION: 1. Cardiomegaly without acute process. 2. Hiatal hernia. ACT 112: Negative or not required by law. The above report was generated using voice recognition software. It may contain grammatical, syntax or spelling errors. Electronically signed by: Pierce Esposito M.D. 04/08/2024 4:[address] 04/08/24 16:11 CT SCAN OF THE BRAIN WITHOUT IV CONTRAST CLINICAL HISTORY: Generalized weakness. COMPARISON STUDY: CT of the brain dated 07/31/2020 TECHNIQUE: Unenhanced axial CT scan of the brain is performed from the vertex to the skull base. A dose lowering technique was utilized adhering to the principles of ALARA. CT DOSE: 547.75 mGy.cm FINDINGS: Brain parenchyma: There is age-related involutional change noting [id number] subcortical and periventricular microangiopathic disease. There is no hemorrhage, mass effect, or evidence of acute territorial ischemia by CT criteria. Smith-white matter differentiation is preserved. No extra-axial fluid collection is seen. Ventricles, sulci, cisterns: Prominent secondary to involutional change. Intracranial vasculature: There is atherosclerotic calcification of the cavernous carotid and vertebral artery. Calvarium: Unremarkable. Sinuses and mastoids: There are air-fluid levels within the maxillary antra. There is incomplete opacification of the ethmoid sinuses. Mild mucosal thickening is noted within the frontal and sphenoid sinuses. The mastoid air cells are well pneumatized. Cerumen is noted in the external auditory canals. Orbits: The bony orbits are grossly intact. IMPRESSION: 1 There is no hemorrhage, mass effect, or evidence of acute territorial ischemia by CT criteria. 2. Pansinus disease as above. ACT 112: Negative or not required by law. Electronically signed by: Ulysses Walker M.D. 04/08/2024 4:48 PM ECG Data Attestation: I personally reviewed and interpreted this ECG as follows: Rate (beats per minute): 69 Rhythm: + normal sinus ECG Intervals/blocks: + Normal QRS, + Normal MS and + Normal QT-c ECG ST segments: + Normal ST segments ECG Findings: + [facility] Narrative 1603: The patient was evaluated in room B8. A complete history and physical exam was performed Cardiac monitoring: An order was placed for continuous cardiac monitoring. The monitor shows a rate of 70 with sinus rhythm interpreted by me 1857: Vital signs stable. Imaging is unremarkable. Labs are unremarkable with exception of urinalysis positive for UTI. Discussed results with the family and daughter at bedside. Daughter states they would prefer that the patient be admitted so she be placed in a rehab facility as they have been trying to arrange it from home but have been having difficulty doing that. Antibiotics ordered for the patient. [facility] Impression & Plan Acute UTI Discharge Plan Visit Data Chief Complaint: Weakness ED Provider: Pardeep Nickerson Discharge Problem: Acute UTI Patient Disposition: Admitted As Inpatient Discharge Instructions Interventions: ED Discharge Assessment Last Done: 04/08/24 21:32
[2024-04-08 16:40] LABS: Basophils # (auto) 0.03 K/uL (0.00-0.20); Basophils % (auto) 0.5 %; Eosinophils % (auto) 1.6 %; Hematocrit (blood only) 43.5 % (37.0-47.0); Hemoglobin 14.6 g/dl (12.0-16.0); Immature Granulocytes # (auto) 0.03 K/uL (0.01-0.20); Immature Granulocytes % (auto) 0.5 %; Lymphocytes # (auto) 1.33 K/uL (1.20-3.40); Lymphocytes % (auto) 21.5 %; Mean Corpuscular Hemoglobin 30.7 pg (25.0-34.0); Mean Corpuscular Hgb Conc 33.6 g/dL (32.0-36.0); Mean Corpuscular Volume 91.6 fL (80.0-100.0); Mean Platelet Volume 10.4 fL (9.4-12.4); Monocytes # (auto) 0.37 K/uL (0.11-0.59); Neutrophils # (auto) 4.33 K/uL (1.40-6.50); Neutrophils % (auto) 69.9 %; Platelet Count 185 K/uL (130-400); RDW Coefficient of Variation 13.8 % (11.5-14.5); RDW Standard Deviation 46.5 fL (36.4-46.3); Red Blood Count 4.75 M/uL (4.20-5.40); White Blood Count 6.19 K/ul (4.8-10.8)
--- NOTE | 2024-04-08 16:40 | XRay Report ---
XR chest 1V portable HISTORY: 79 years-old Female Sepsis acute sepsis COMPARISON: 09/22/2021 chest radiograph, chest CT 05/04/2022 TECHNIQUE: AP view of the chest FINDINGS: Cardiomegaly. Hiatal hernia. Atherosclerosis of the aorta. No pneumothorax, large pleural effusion or overt pulmonary edema. Mild bibasilar atelectasis. Bones appear grossly intact. IMPRESSION: 1. Cardiomegaly without acute process. 2. Hiatal hernia. ACT 112: Negative or not required by law. The above report was generated using voice recognition software. It may contain grammatical, syntax o r spelling errors. Electronically signed by: Pierce Esposito M.D. 04/08/2024 4:38 PM
[2024-04-08 16:42] LABS: Albumin Level 3.7 gm/dl (3.4-5.0); BUN Creatinine Ratio 22.8 (10-20); Bilirubin Direct 0.1 mg/dl (0-0.2); Bilirubin,Total 0.7 mg/dl (0.2-1.0); Calcium 9.7 mg/dl (8.6-10.3); Creatinine Clr Calc Pharmacy 61.4 ml/min; Magnesium 2.3 mg/dl (1.7-2.4); Potassium 3.4 mmol/L (3.5-5.1); Total Protein 6.6 gm/dl (6.0-8.3)
[2024-04-08 16:47] LABS: Troponin I High Sensitivity 4.7 pg/ml (0-14)
--- NOTE | 2024-04-08 16:49 | CT Scan Report ---
CT SCAN OF THE BRAIN WITHOUT IV CONTRAST CLINICAL HISTORY: Generalized weakness. COMPARISON STUDY: CT of the brain dated 07/31/2020 TECHNIQUE: Unenhanced axial CT scan of the brain is performed from the vertex to the skull base. A do se lowering technique was utilized adhering to the principles of ALARA. CT DOSE: 547.75 mGy.cm FINDINGS: Brain parenchyma: There is age-related involutional change noting [id number] subcortical and pe riventricular microangiopathic disease. There is no hemorrhage, mass effect, or evidence of acute ter ritorial ischemia by CT criteria. Smith-white matter differentiation is preserved. No extra-axial flui d collection is seen. Ventricles, sulci, cisterns: Prominent secondary to involutional change. Intracranial vasculature: There is atherosclerotic calcification of the cavernous carotid and vertebr al artery. Calvarium: Unremarkable. Sinuses and mastoids: There are air-fluid levels within the maxillary antra. There is incomplete opac ification of the ethmoid sinuses. Mild mucosal thickening is noted within the frontal and sphenoid si nuses. The mastoid air cells are well pneumatized. Cerumen is noted in the external auditory canals. Orbits: The bony orbits are grossly intact. IMPRESSION: 1 There is no hemorrhage, mass effect, or evidence of acute territorial ischemia by CT criteria. 2. Pansinus disease as above. ACT 112: Negative or not required by law. Electronically signed by: Ulysses Walker M.D. 04/08/2024 4:48 PM
[2024-04-08 18:02] LABS: Partial Thromboplastin Ratio 0.9; Partial Thromboplastin Time 23 Seconds (21-31); Prothrombin Time 11.3 Seconds (9.0-12.0)
[2024-04-08 18:37] LABS: Appearance Urine Clear (Clear); Bacteria Urine Automated 2+ (None Seen); Bilirubin Urine Negative (Negative); Blood Urine Negative (Negative); Cast Urine Automated 0-2 /lpf (0-2); Color Urine Yellow; Epithelial Cell Urine Auto 0-2 /hpf (0-2); Glucose Urine UA Negative (Negative); Ketones Urine Negative (Negative); Leukocyte Esterase Urine Trace (Negative); Nitrite Urine Positive (Negative); Protein Urine Negative (Negative); Urobilinogen Urine Negative (Negative); pH Urine 6.5 (4.5-7.5)
[2024-04-08 18:45] LABS: RBC Urine Automated 0-2 /hpf (0-2)
--- NOTE | 2024-04-08 20:15 | History & Physical Report ---
Date of Service April 08, 2024 Assessment & Plan (1) Acute UTI: (2) Dementia: (3) H/O hemicolectomy: (4) Urge and stress incontinence: (5) Gait disturbance: (6) Esophageal reflux: (7) HTN (hypertension): (8) Fall: Plan Acute urinary tract infection/urinary urge and stress incontinence- Follow urine culture and sensitivity On 08/11/2020 Enterococcus faecalis UTI On 07/30/2020 E. coli UTI Ceftriaxone 1 g IV daily NSS + KCl 20 mill equivalents at 80 mL/h x 1 L Likely causing/contributing to a worsening of her underlying dementia, and generalized fatigue ambulatory dysfunction Continue Myrbetriq Dehydration/hypokalemia- Potassium 3.4 on admission NSS + KCl mEq at 80 mL/h x 1 L Parkinsonism/ambulatory dysfunction/dementia- Continue carbidopa-levodopa Consult PT/OT Patient typically walks with a walker, also uses a manual wheelchair, and is at high risk for falls Will need inpatient rehab at discharge Hypertension- Has been more diet-controlled recently Hyperlipidemia- Continue atorvastatin CODE STATUS: DNR/DNI History of Present Illness Chief Complaint: Patient presents to the emergency department plaint of generalized weakness, worsening difficulty walking on top of her ambulatory dysfunction and memory issues associated with Parkinson's. Family feels that she would benefit from inpatient rehab, and asked that arrangements be made from the hospital. Primary Care Provider: JESSICA Church The patient is a 79-year-old female with a past medical history including parkinsonism, hypertension, adenocarcinoma of the cecum, dementia, ambulatory dysfunction requiring a walker, urge and stress urinary incontinence, GERD, anxiety, history of Enterococcus faecalis and E. coli UTIs, and hypercholest erolemia. Patient presents to the emergency department with family, with family concerns regarding worsening ability to ambulate and progressive fatigue and generalized weakness, especially over the past 3 days. Allergies Allergy/AdvReac Type Severity Reaction Status Date / Time Fish Containing Products Allergy Unknown Unknown Verified 04/08/24 19:04 fish derived Allergy Unknown Unknown Verified 04/08/24 19:04 fish oil Allergy Unknown Unknown Verified 04/08/24 19:04 Penicillins Allergy Unknown Unknown Verified 04/08/24 19:04 morphine AdvReac Intermediate Nausea Verified 04/08/24 19:04 pseudoephedrine AdvReac Intermediate "Makes me Verified 04/08/24 19:04 crazy" tramadol AdvReac Intermediate confusion, Verified 04/08/24 19:04 "loopy" Home Medications Medication Instructions Recorded Confirmed Type coenzyme Q10 30 mg capsule (Co 30 mg PO HS 12/04/18 04/08/24 History Q-10) multivitamin (Multiple Vitamins 1 tab PO QAM 12/04/18 04/08/24 History tablet) vitamin B complex 1 tab PO QAM 12/04/18 04/08/24 History ascorbic acid (vitamin C) 500 mg 500 mg PO QAM 01/29/19 04/08/24 History tablet cholecalciferol (vitamin D3) 50 2,000 units PO QAM 01/29/19 04/08/24 History mcg (2,000 unit) capsule atorvastatin 10 mg tablet 10 mg PO HS #90 tabs 11/06/23 04/08/24 Rx carbidopa 25 mg-levodopa 100 mg 1.5 tab PO TID #135 tabs 11/06/23 04/08/24 Rx tablet Myrbetriq 25 mg tablet,extended 25 mg PO QAM #90 tabs 02/01/24 04/08/24 Rx release (mirabegron) Wheelchair (Manual) (Manual #1 ea 02/05/24 04/08/24 Rx Wheelchair) aspirin 81 mg tablet,delayed 81 mg PO QAM 04/08/24 04/08/24 History release ibandronate 150 mg tablet 150 mg PO MONTHLY 04/08/24 04/08/24 History Past Med/Surg History Problem List (Updated 04/09/24 @ 00:24 by Pardeep Nickerson MD) Acute UTI (Acute) Dementia Hx of compression fracture of spine T12 compression fracture (~07/2020) > treated with conservative management Anemia associated with malignant neoplastic disease History of liver biopsy History of excisional biopsy of liver lesion during colectomy for cancer, frozen section benign Liver lesion, left lobe Vitamin D deficiency (Acute) Urge and stress incontinence (Acute) Postmenopausal atrophic vaginitis (Acute) Osteoporosis (Acute) Osteoarthritis of right hip (Acute) Impaired fasting glucose (Acute) Gait disturbance (Acute) Esophageal reflux (Acute) Dry eye syndrome (Acute) Anxiety (Acute) Allergic rhinitis (Acute) Rib pain (Acute) Degenerative joint disease of right hip Mass of soft tissue Nephrolithiasis Renal artery aneurysm High serum chloride (Acute) Encephalopathy E. coli UTI Abnormal EKG HTN (hypertension) Adenocarcinoma of cecum Hypertension (Acute) "Well controlled" without meds currently Hypercholesterolemia (Acute) Fall (Acute) High fall risk Parkinsonism Minor tremors (worse at night), improved with muscle relaxant Medical History Encounter for pre-operative examination Disorientation Patient will become anxious and "not act like herself" at night while inpatient at hospital d/t unfamiliar setting. Requests for family/ to be at bedside for her safety when possible. 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 BENIGN History of tooth extraction History of tonsillectomy and adenoidectomy History of total abdominal hysterectomy and bilateral salpingo-oophorectomy Family History Sister Uterine cancer Mother Diabetes Breast cancer Family history of diabetes mellitus Father Hx of CABG Other No family history of adverse response to anesthesia Denies family history of Ovarian cancer Prostate cancer Myocardial infarction Colorectal cancer Social History Smoking Status: Never smoker Second Hand Exposure: No; Do You Dip or Chew Tobacco: No; Hx Alcohol Use: No Hx Substance Use: No Preferred Language: [place] Islander Communication Ability: Effective Visual Impairment: No Limitations Hearing Ability: Normal Motor Installer Required: No Beliefs That Will Affect Care: None marital status: Current Living Situation: Spouse Current Living Situation Comment: IS PRIMARY CAREGIVER current occupational status: retired 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 How many Children do You have: 1 Other Information That Helps Us Care for You: No Feels Safe at Home: Yes Safety Concerns: Feels Safe At This Time Childhood Exposure to Second-Hand Smoke: No Diet: regular Diet Comment: low fat caffeine: Yes Dental Care, Regularly: No Physical Activity Frequency: Does not Exercise Seatbelt Use: always Sunscreen Use: No (she does not go out ) Assistive Devices: Denture - Upper, Denture - Lower, Glasses and Walker Review of Systems Review of Systems: The patient denies chest pain, palpitations, shortness of breath, dyspnea on exertion, cough, lower extremity swelling, sore throat, fevers, chills, sweats, nausea, vomiting, diarrhea , constipation, abdominal pain, pelvic pain, blood in urine or stool, dysuria, urinary frequency or urgency, loss of consciousness, rash, abnormal bruising or bleeding, focal weakness, numbness or tingling in arms or legs, generalized arthralgias or myalgias, back or neck pain, or night sweats. The review of systems is otherwise negative other than for that already noted above, and at least 10 systems have been reviewed. Physical Exam Physical Exam: The patient is awake, fatigued, well developed and well nourished, normocephalic and atraumatic, lying in bed and in no acute distress. HEENT--PERRL, EOMI, mucous membranes and oropharynx mildly dry. Neck--supple. No JVD. No bruits. Thyroid normal, trachea midline, no marlys opathy. Heart--normal S1 and S2. No murmurs, rubs or gallops. Lungs--clear bilaterally, no respiratory distress, no accessory muscle use. Abdomen--normal bowel sounds and soft. Nontender. Nondistended, no hernias or masses, no organomegaly. Extremities--no cyanosis or clubbing. No edema. Dermatologic--skin is mildly dry Neurologic--cranial nerves II through XII grossly intact. Rheumatologic--normal range of motion. Psychiatric--normal affect. Results & Data Results & Data Vital Signs (Past 12 Hours) Vital Signs Temp Pulse Pulse Resp BP BP Pulse Ox 04/08/24 19:00 78 20 131/79 97 04/08/24 17:34 57 L 18 132/86 95 04/08/24 16:57 72 17 137/85 95 04/08/24 16:41 73 17 137/85 95 04/08/24 16:11 73 17 137/85 95 04/08/24 16:11 73 17 95 04/08/24 16:04 70 04/08/24 16:00 137/85 04/08/24 15:54 71 20 137/85 95 04/08/24 15:54 95 04/08/24 15:54 37.0 C 72 20 137/85 93 O2 Del Method O2 Flow Rate 04/08/24 19:00 Room Air 04/08/24 17:34 Room Air 04/08/24 16:57 Room Air 04/08/24 16:41 Room Air 04/08/24 16:11 Room Air 04/08/24 16:11 Room Air 04/08/24 16:04 04/08/24 16:00 04/08/24 15:54 Room Air 04/08/24 15:54 Room Air 0 04/08/24 15:54 Room Air Laboratory Results Laboratory Results WBC 6.19 K/ul (4.8-10.8) 04/08/24 16:00 RBC 4.75 M/uL (4.20-5.40) 04/08/24 16:00 Hgb 14.6 g/dl (12.0-16.0) 04/08/24 16:00 Hct 43.5 % (37.0-47.0) 04/08/24 16:00 MCV 91.6 fL (80.0-100.0) 04/08/24 16:00 MCH 30.7 pg (25.0-34.0) 04/08/24 16:00 MCHC 33.6 g/dL (32.0-36.0) 04/08/24 16:00 RDW Std Deviation 46.5 fL (36.4-46.3) H 04/08/24 16:00 RDW Coeff of Griselda 13.8 % (11.5-14.5) 04/08/24 16:00 Plt Count 185 K/uL (130-400) 04/08/24 16:00 MPV 10.4 fL (9.4-12.4) 04/08/24 16:00 Immature Gran % (Auto) 0.5 % 04/08/24 16:00 Neut % (Auto) 69.9 % 04/08/24 16:00 Lymph % (Auto) 21.5 % 04/08/24 16:00 [place] % (Auto) 6.0 % 04/08/24 16:00 Eos % (Auto) 1.6 % 04/08/24 16:00 Baso % (Auto) 0.5 % 04/08/24 16:00 Neut # (Auto) 4.33 K/uL (1.40-6.50) 04/08/24 16:00 Lymph # (Auto) 1.33 K/uL (1.20-3.40) 04/08/24 16:00 [place] # (Auto) 0.37 K/uL (0.11-0.59) 04/08/24 16:00 Eos # (Auto) 0.10 K/uL (0.00-0.50) 04/08/24 16:00 Baso # (Auto) 0.03 K/uL (0.00-0.20) 04/08/24 16:00 Immature Gran # (Auto) 0.03 K/uL (0.01-0.20) 04/08/24 16:00 PT 11.3 Seconds (9.0-12.0) 04/08/24 17:19 INR 1.0 (0.9-1.1) 04/08/24 17:19 APTT 23 Seconds (21-31) 04/08/24 17:19 PTT Ratio 0.9 04/08/24 17:19 Sodium 143 mmol/L (136-145) 04/08/24 16:00 Potassium 3.4 mmol/L (3.5-5.1) L 04/08/24 16:00 Chloride 106 mmol/L (98-107) 04/08/24 16:00 Carbon Dioxide 30 mmol/L (21-32) 04/08/24 16:00 Anion Gap 7 (3-11) 04/08/24 16:00 BUN 13 mg/dl (6-23) 04/08/24 16:00 Creatinine 0.57 mg/dl (0.6-1.2) L 04/08/24 16:00 Est Cr Clr Drug Dosing 61.4 ml/min 04/08/24 16:00 eGFR 92.96 04/08/24 16:00 BUN/Creatinine Ratio 22.8 (10-20) H 04/08/24 16:00 Glucose 100 mg/dl (70-99(Fasting)) H 04/08/24 16:00 Lactate 1.0 mmol/L (0.4-2.0) 04/08/24 16:24 Calcium 9.7 mg/dl (8.6-10.3) 04/08/24 16:00 Magnesium 2.3 mg/dl (1.7-2.4) 04/08/24 16:00 Total Bilirubin 0.7 mg/dl (0.2-1.0) 04/08/24 16:00 Direct Bilirubin 0.1 mg/dl (0-0.2) 04/08/24 16:00 AST 29 U/L (13-39) 04/08/24 16:00 ALT 4 U/L (7-52) L 04/08/24 16:00 Alkaline Phosphatase 66 U/L (34-104) 04/08/24 16:00 Troponin I High Sens 4.7 pg/ml (0-14) 04/08/24 16:00 Total Protein 6.6 gm/dl (6.0-8.3) 04/08/24 16:00 Albumin 3.7 gm/dl (3.4-5.0) 04/08/24 16:00 Procalcitonin < 0.02 ng/ml (0-0.5) 04/08/24 16:00 Urine Color Yellow 04/08/24 17:59 Urine Appearance Clear (Clear) 04/08/24 17:59 Urine pH 6.5 (4.5-7.5) 04/08/24 17:59 Ur Specific [place] 1.010 (1.000-1.030) 04/08/24 17:59 Urine Protein Negative (Negative) 04/08/24 17:59 Urine Glucose (UA) Negative (Negative) 04/08/24 17:59 Urine Ketones Negative (Negative) 04/08/24 17:59 Urine Blood Negative (Negative) 04/08/24 17:59 Urine Nitrite Positive (Negative) A 04/08/24 17:59 Urine Bilirubin Negative (Negative) 04/08/24 17:59 Urine Urobilinogen Negative (Negative) 04/08/24 17:59 Ur Leukocyte Esterase Trace (Negative) H 04/08/24 17:59 Urine WBC (Auto) 6-10 /hpf (0-5) H 04/08/24 17:59 Urine RBC (Auto) 0-2 /hpf (0-2) 04/08/24 17:59 U Hyaline Cast (Auto) 0-2 /lpf (0-2) 04/08/24 17:59 U Epithel Cells (Auto) 0-2 /hpf (0-2) 04/08/24 17:59 Urine Bacteria (Auto) 2+ (None Seen) H 04/08/24 17:59 Impressions Chest X-Ray 04/08/24 16:11 XR chest 1V portable HISTORY: 79 years-old Female Sepsis acute sepsis COMPARISON: 09/22/2021 chest radiograph, chest CT 05/04/2022 TECHNIQUE: AP view of the chest FINDINGS: Cardiomegaly. Hiatal hernia. Atherosclerosis of the aorta. No pneumothorax, large pleural effusion or overt pulmonary edema. Mild bibasilar atelectasis. Bones appear grossly intact. IMPRESSION: 1. Cardiomegaly without acute process. 2. Hiatal hernia. ACT 112: Negative or not required by law. The above report was generated using voice recognition software. It may contain grammatical, syntax or spelling errors. Electronically signed by: Pierce Esposito M.D. 04/08/2024 4:[address] 04/08/24 16:11 CT SCAN OF THE BRAIN WITHOUT IV CONTRAST CLINICAL HISTORY: Generalized weakness. COMPARISON STUDY: CT of the brain dated 07/31/2020 TECHNIQUE: Unenhanced axial CT scan of the brain is performed from the vertex to the skull base. A dose lowering technique was utilized adhering to the principles of ALARA. CT DOSE: 547.75 mGy.cm FINDINGS: Brain parenchyma: There is age-related involutional change noting [id number] subcortical and periventricular microangiopathic disease. There is no hemorrhage, mass effect, or evidence of acute territorial ischemia by CT criteria. Smith-white matter differentiation is preserved. No extra-axial fluid collection is seen. Ventricles, sulci, cisterns: Prominent secondary to involutional change. Intracranial vasculature: There is atherosclerotic calcification of the cavernous carotid and vertebral artery. Calvarium: Unremarkable. Sinuses and mastoids: There are air-fluid levels within the maxillary antra. T here is incomplete opacification of the ethmoid sinuses. Mild mucosal thickening is noted within the frontal and sphenoid sinuses. The mastoid air cells are well pneumatized. Cerumen is noted in the external auditory canals. Orbits: The bony orbits are grossly intact. IMPRESSION: 1 There is no hemorrhage, mass effect, or evidence of acute territorial ischemia by CT criteria. 2. Pansinus disease as above. ACT 112: Negative or not required by law. Electronically signed by: Ulysses Walker M.D. 04/08/2024 4:48 PM Code Status & VTE Plan Code Status DNR/DNI VTE Prophylaxis Plan VTE Prophylaxis will be ordered: Yes PG Care Time/CCT Total # of Minutes Spent Total Time Spent with Patient: Total time spent is greater than 50% in coordination of care (as documented) at patient's floor/unit and/or counseling patient: Coding Level of Care Code 15761 INT INP/OBS CARE 3/75MIN Diagnoses Acute UTI N39.0 Dementia F03.90 H/O hemicolectomy Z90.49 Urge and stress incontinence N39.46 Gait disturbance R26.9 Esophageal reflux K21.9 HTN (hypertension) I10 Fall, initial encounter W19.XXXA Encounter type: initial encounter (8) Fall Encounter type: initial encounter Qualified Code(s): W19.XXXA - Unspecified fall, initial encounter
[2024-04-08] MEDS: cefTRIAXone SODIUM 1,000 MG/50 ML BAG IV STA (21:08)
[2024-04-08] MEDS: NSS + 20MEQ KCL 20 MEQ/1,000 ML BAG IV SCH (21:11)
[2024-04-08] MEDS ORDERED: ONDANSETRON INJ 2 MG/ML 2 ML VIAL IV PRN (22:06)
[2024-04-08] MEDS ORDERED: ACETAMINOPHEN 325 MG TAB PO PRN (22:06)
[2024-04-08] MEDS: CARBIDOPA/LEVODOPA 25/100MG TAB PO SCH (23:38)
[2024-04-08] MEDS: HEPARIN SOD 5,000 UNIT/0.5 ML VIAL SQ SCH (23:39)
[2024-04-08] MEDS: ATORVASTATIN 10 MG TAB PO SCH (23:39)
[2024-04-09 07:06] LABS: Basophils # (auto) 0.03 K/uL (0.00-0.20); Basophils % (auto) 0.5 %; Eosinophils # (auto) 0.12 K/uL (0.00-0.50); Eosinophils % (auto) 2.1 %; Hematocrit (blood only) 37.8 % (37.0-47.0); Hemoglobin 12.6 g/dl (12.0-16.0); Immature Granulocytes # (auto) 0.03 K/uL (0.01-0.20); Immature Granulocytes % (auto) 0.5 %; Lymphocytes # (auto) 1.56 K/uL (1.20-3.40); Lymphocytes % (auto) 27.1 %; Mean Corpuscular Hemoglobin 30.9 pg (25.0-34.0); Mean Corpuscular Hgb Conc 33.3 g/dL (32.0-36.0); Mean Corpuscular Volume 92.6 fL (80.0-100.0); Mean Platelet Volume 10.1 fL (9.4-12.4); Monocytes # (auto) 0.37 K/uL (0.11-0.59); Monocytes % (auto) 6.4 %; Neutrophils # (auto) 3.65 K/uL (1.40-6.50); Neutrophils % (auto) 63.4 %; Platelet Count 168 K/uL (130-400); RDW Coefficient of Variation 13.6 % (11.5-14.5); RDW Standard Deviation 46.5 fL (36.4-46.3); Red Blood Count 4.08 M/uL (4.20-5.40); White Blood Count 5.76 K/ul (4.8-10.8)
[2024-04-09 07:44] LABS: Albumin Level 3.2 gm/dl (3.4-5.0); Calcium 8.6 mg/dl (8.6-10.3); Creatinine Clr Calc Pharmacy 57.4 ml/min; Magnesium 2.1 mg/dl (1.7-2.4); Phosphorus 3.4 mg/dl (2.5-4.9); Potassium 3.6 mmol/L (3.5-5.1)
[2024-04-09] MEDS: ASCORBIC ACID 500 MG TAB PO SCH (09:50)
[2024-04-09] MEDS: ASPIRIN 81 MG ECTAB PO SCH (09:51)
[2024-04-09] MEDS: MULTIVITAMIN TAB PO SCH (09:55)
[2024-04-09] MEDS: CHOLECALCIFEROL 25 MCG (1000 UNITS) TAB PO SCH (09:55)
[2024-04-09] MEDS: VIBEGRON 75 MG TAB PO SCH (09:56)
[2024-04-09] MEDS: VITAMIN B COMPLEX TAB PO SCH (09:56)
--- NOTE | 2024-04-09 15:09 | Electrocardiogram Report ---
Test Reason : Blood Pressure : */* mmHG Vent. Rate : 69 BPM Atrial Rate : 69 BPM P-R Int : 170 ms QRS Dur : 94 ms QT Int : 396 ms P-R-T Axes : -10 -33 -3 degrees QTcB Int : 424 ms Normal sinus rhythm with sinus arrhythmia Left axis deviation Moderate voltage criteria for LVH, may be normal variant ( R in aVL ) Poor R wave progression, consider anterior IL vs. lead placement vs. LVH Abnormal ECG When compared with ECG of 30-Jul-2020 10:50, Nonspecific T wave abnormality no longer evident in Anterior leads Confirmed by Chito Lazo ([id number]) on 04/09/2024 3:08:40 PM Referred By: Confirmed By: Chito Lazo
--- NOTE | 2024-04-09 16:28 | Hospitalist Progress Note ---
Date of Service April 09, 2024 Assessment & Plan (1) COVID-19: Plan: COVID testing returned positive this evening. Pt has been ill since Sunday/Sunday of this past weekend. At high risk of disease progression due to advanced age, dementia, etc. LFTs wnl. Creatinine stable. Will start Remdesivir tonight. Check ast/alt am. COVID precautions ordered. Defer on steroids for now. (2) Acute UTI: Plan: 2nd GNR cont rocephin await culture does have h/o kidney stones - consider CT imaging to r/o obstruction (3) Sinusitis: Plan: as seen on head CT likely all due to COVID can't exclude bacterial sinus infection if such is present rocephin will more than adequately cover the sinuses (4) Dementia: Plan: 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 dementia vs vascular parkinsonism per outpatient neurology notes cont Sinemet cont supportive care (5) 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 (6) Urge and stress incontinence: (7) Gait disturbance: Plan: 2nd to #4 I cannot exclude a lumbar spine issue leading to all of her RLE issues including R foot drop and increased tone/UMN signs consider dedicated imaging of lumbar/thoracic spine (8) Esophageal reflux: Plan: not on meds for such (9) HTN (hypertension): Plan: not on meds for such (10) Fall: Plan: likely 2nd to UTI, COVID infection, etc in the setting of dementia and RLE issues as documented above PT, OT (11) Foot drop, right: Plan: consider orthotics consultation will put her at risk of recurrent falls and ongoing gait issues Plan DVT proph - heparin 5000 BID daughters updated at bedside Admission and Anticipated Discharge Date Admission Date: April 08, 2024 Subjective patient lying in bed during the visit 2 daughters present at bedtime patient reports numbness in her right leg - she was initially vague about the location, but sounds like it starts in the right thigh & travels down the RLE her leg is weak at times it hurts denies LLE symptoms family states that her ambulation has gotten worse over time in addition, she has had URI symptoms starting last Sunday or Sunday her with whom she lives is sick at home right now with similar symptoms nasal congestion, cough, etc. her weakness accelerated when she came down with this illness appetite poor-fair at best Review of Systems Review of Systems: cv - no chest pain pulm - no dyspnea GI - no abd pain Physical Exam Physical Exam: gen - lying comfortably in bed, NAD, pleasant confusion mouth - MMM HENT - she sounds congested neck - no JVD heart - RRR, s1 s2 lungs - mild rales bases, CTA apices b/l, no distress abd - soft NT ND BS+ ext - no edema, pulses 2+ b/l neuro - foot drop on right; severely increased tone throughout the entire RLE; I had considerable difficulty placing the right hip and right knee thru passive ROM; she denied pain in either joint with the limited amount of passive ROM; +ankle clonus on right; left leg tone is increased but nothing like the RLE Results & Data Results & Data Vital Signs (Past 12 Hours) Vital Signs Temp Pulse Resp BP Pulse Ox O2 Del Method 04/09/24 16:11 36.6 C 71 18 138/79 94 Room Air 04/09/24 07:44 Room Air 04/09/24 07:05 36.9 C 61 18 146/74 H 96 Room Air Laboratory Results Laboratory Results - last 24 hr 04/09/24 04/09/24 06:13 Unknown WBC 5.76 RBC 4.08 L Hgb 12.6 Hct 37.8 MCV 92.6 MCH 30.9 MCHC 33.3 RDW Std Deviation 46.5 H RDW Coeff of Griselda 13.6 Plt Count 168 MPV 10.1 Immature Gran % (Auto) 0.5 Neut % (Auto) 63.4 Lymph % (Auto) 27.1 [place] % (Auto) 6.4 Eos % (Auto) 2.1 Baso % (Auto) 0.5 Neut # (Auto) 3.65 Lymph # (Auto) 1.56 [place] # (Auto) 0.37 Eos # (Auto) 0.12 Baso # (Auto) 0.03 Immature Gran # (Auto) 0.03 Sodium 145 Potassium 3.6 Chloride 109 H Carbon Dioxide 31 Anion Gap 5 BUN 11 Creatinine 0.61 Est Cr Clr Drug Dosing 57.4 eGFR 91.45 BUN/Creatinine Ratio 18.0 Glucose 81 Calcium 8.6 Phosphorus 3.4 Magnesium 2.1 Albumin 3.2 L SARS-CoV-2 RNA (RT-PCR) POSITIVE A PG Care Time/CCT Total # of Minutes Spent Total Time Spent with Patient: Total time spent is greater than 50% in coordination of care (as documented) at patient's floor/unit and/or counseling patient: Coding Level of Care Code 64598 SUB INP/OBS CARE 3/50MIN Diagnoses COVID-19 U07.1 Acute UTI N39.0 Sinusitis J32.9 Dementia F03.90 H/O hemicolectomy Z90.49 Urge and stress incontinence N39.46 Gait disturbance R26.9 Esophageal reflux K21.9 HTN (hypertension) I10 Fall, initial encounter W19.XXXA Encounter type: initial encounter Foot drop, right M21.371 (10) Fall Encounter type: initial encounter Qualified Code(s): W19.XXXA - Unspecified fall, initial encounter
[2024-04-09] MEDS: cefTRIAXone SODIUM 1,000 MG/50 ML BAG IV SCH (21:36)
[2024-04-09] MEDS: REMDESIVIR 200 MG in SODIUM CHLORIDE 0.9% 210 ML IV ONE (22:43)
[2024-04-10 06:22] LABS: Basophils # (auto) 0.04 K/uL (0.00-0.20); Basophils % (auto) 0.7 %; Eosinophils # (auto) 0.09 K/uL (0.00-0.50); Eosinophils % (auto) 1.5 %; Hematocrit (blood only) 37.2 % (37.0-47.0); Hemoglobin 12.2 g/dl (12.0-16.0); Immature Granulocytes # (auto) 0.04 K/uL (0.01-0.20); Immature Granulocytes % (auto) 0.7 %; Lymphocytes # (auto) 1.65 K/uL (1.20-3.40); Lymphocytes % (auto) 28.3 %; Mean Corpuscular Hemoglobin 30.6 pg (25.0-34.0); Mean Corpuscular Hgb Conc 32.8 g/dL (32.0-36.0); Mean Corpuscular Volume 93.2 fL (80.0-100.0); Mean Platelet Volume 10.1 fL (9.4-12.4); Monocytes # (auto) 0.38 K/uL (0.11-0.59); Monocytes % (auto) 6.5 %; Neutrophils # (auto) 3.63 K/uL (1.40-6.50); Neutrophils % (auto) 62.3 %; Platelet Count 189 K/uL (130-400); RDW Coefficient of Variation 13.7 % (11.5-14.5); RDW Standard Deviation 47.1 fL (36.4-46.3); Red Blood Count 3.99 M/uL (4.20-5.40); White Blood Count 5.83 K/ul (4.8-10.8)
[2024-04-10 06:45] LABS: Albumin Level 3.3 gm/dl (3.4-5.0); BUN Creatinine Ratio 20.3 (10-20); Calcium 8.5 mg/dl (8.6-10.3); Creatinine Clr Calc Pharmacy 50.7 ml/min; Magnesium 2.1 mg/dl (1.7-2.4); Phosphorus 3.1 mg/dl (2.5-4.9); Potassium 3.3 mmol/L (3.5-5.1)
[2024-04-10] MEDS: ACETAMINOPHEN 500 MG TAB PO SCH (08:53)
[2024-04-10] MEDS: POTASSIUM CHLORIDE 10 MEQ TABCR PO SCH (10:34)
[2024-04-10] MEDS: POTASSIUM CHLORIDE 20 MEQ in D5W AND 0.2% NaCL 1,000 ML IV SCH (12:35)
--- NOTE | 2024-04-10 19:45 | Hospitalist Progress Note ---
Date of Service April 10, 2024 Assessment & Plan (1) COVID-19: Plan: COVID testing returned positive this evening. Pt has been ill since Sunday/Sunday of this past weekend. At high risk of disease progression due to advanced age, dementia, etc. LFTs wnl. Creatinine stable. Day #2 of Remdesivir today. Plan up to 5 days in duration. ast/alt wnl today; repeat tomorrow. COVID precautions ordered. Defer on steroids since respiratory status is stable, o2 sats wnl, and recent cxr w/o infiltrates. 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 (6) Urge and stress incontinence: Plan: big risk factor for UTI incontinence likely 2nd to dementia process (7) Gait disturbance: Plan: 2nd to #4 I cannot exclude a lumbar spine issue leading to all of her RLE issues including R foot drop and increased tone/UMN signs consider dedicated imaging of lumbar/thoracic spine (8) Esophageal reflux: Plan: not on meds for such (9) HTN (hypertension): Plan: not on meds for such (10) Fall: Plan: likely 2nd to UTI, COVID infection, etc in the setting of dementia and RLE issues as documented above PT, OT needs rehab (11) Foot drop, right: Plan: consider orthotics consultation will put her at risk of recurrent falls and ongoing gait issues consider lumbar spine CT - r/o cord compression Plan DVT proph - heparin 5000 BID daughters updated at bedside once again Admission and Anticipated Discharge Date Admission Date: April 08, 2024 Subjective pt resting in bed during the visit 2 daughters at bedside ongoing cough ongoing nasal/sinus congestion but overall she is doing well - daughters are pleased with how well she is overall doing eating robustly per nursing staff no new issues family aware of COVID+ status Review of Systems Review of Systems: neuro - no headache cv - no chest pain pulm - no dyspnea GI - no abd pain; no nausea Physical Exam Physical Exam: gen - lying comfortably in bed, NAD, pleasant confusion, coughing at times mouth - MM slightly dry neck - no JVD heart - RRR, s1 s2 lungs - CTA b/l abd - soft NT ND BS+ ext - no edema, pulses 2+ b/l neuro - foot drop on right psych - oriented to person +/- place Results & Data Results & Data Vital Signs (Past 12 Hours) Vital Signs Temp Pulse Resp BP Pulse Ox O2 Del Method 04/10/24 09:30 36.6 C 68 16 127/77 96 04/10/24 09:30 Room Air Laboratory Results Laboratory Results - last 24 hr 04/09/24 04/10/24 Unknown 05:31 WBC 5.83 RBC 3.99 L Hgb 12.2 Hct 37.2 MCV 93.2 MCH 30.6 MCHC 32.8 RDW Std Deviation 47.1 H RDW Coeff of Griselda 13.7 Plt Count 189 MPV 10.1 Immature Gran % (Auto) 0.7 Neut % (Auto) 62.3 Lymph % (Auto) 28.3 Josephine % (Auto) 6.5 Eos % (Auto) 1.5 Baso % (Auto) 0.7 Neut # (Auto) 3.63 Lymph # (Auto) 1.65 Josephine # (Auto) 0.38 Eos # (Auto) 0.09 Baso # (Auto) 0.04 Immature Gran # (Auto) 0.04 Sodium 146 H Potassium 3.3 L Chloride 108 H Carbon Dioxide 30 Anion Gap 8 BUN 14 Creatinine 0.69 Est Cr Clr Drug Dosing 50.7 eGFR 88.78 BUN/Creatinine Ratio 20.3 H Glucose 89 Calcium 8.5 L Phosphorus 3.1 Magnesium 2.1 AST 17 ALT 11 Albumin 3.3 L SARS-CoV-2 RNA (RT-PCR) POSITIVE A PG Care Time/CCT Total # of Minutes Spent Total Time Spent with Patient: Total time spent is greater than 50% in coordination of care (as documented) at patient's floor/unit and/or counseling patient: Coding Level of Care Code 85613 SUB INP/OBS CARE 2/35MIN Diagnoses COVID-19 U07.1 Acute UTI N39.0 Sinusitis J32.9 Dementia F03.90 H/O hemicolectomy Z90.49 Urge and stress incontinence N39.46 Gait disturbance R26.9 Esophageal reflux K21.9 HTN (hypertension) I10 Fall, initial encounter W19.XXXA Encounter type: initial encounter Foot drop, right M21.371 (10) Fall Encounter type: initial encounter Qualified Code(s): W19.XXXA - Unspecified fall, initial encounter
[2024-04-10] MEDS: guaiFENesin SUGAR FREE 100 MG/5 ML UDC PO SCH (20:57)
[2024-04-10] MEDS: REMDESIVIR 100 MG in SODIUM CHLORIDE 0.9% 230 ML IV SCH (20:57)
[2024-04-11 06:16] LABS: Calcium 8.3 mg/dl (8.6-10.3); Creatinine Clr Calc Pharmacy 46.6 ml/min; Potassium 3.7 mmol/L (3.5-5.1)
--- NOTE | 2024-04-11 07:32 | CT Scan Report ---
CT OF THE LUMBAR SPINE CLINICAL HISTORY: Right foot drop, increased tone RLE. COMPARISON STUDY: Lumbar spine CT July 29, 2020. TECHNIQUE: Helical axial images of the lumbar spine were obtained. Sagittal and coronal reconstruct ions were viewed. Automated exposure control was utilized for the study. A dose lowering technique was utilized adhering to the principles of ALARA. FINDINGS: For purposes of numbering on this exam, the L5-S1 disc space is assigned to axial image 282 of 344. There is an old severe T12 compression fracture with 7 mm of retropulsion at the superior en dplate which is unchanged since abdominal CT of May 04, 2022. No lumbar spine fractures. Moderate lumbar spine levoscoliosis is noted as well as 6 mm of anterolisthesis of L4 and L5 and 8 mm anterol isthesis of L5 on S1. This is likely due to facet arthrosis. There are no osseous lesions. Please not e that the abdomen and pelvis CT will be reported separately. Right renal calculi are better depicted on that exam. Moderate to severe multilevel degenerative disc disease and facet arthrosis is present . Central canal and neural foramen are suboptimally assessed given CT technique. Subtle deformity of the S2 vertebral body is likely chronic. IMPRESSION: 1. No acute lumbar spine fracture or subluxation. 2. No change in appearance of an old T12 compression fracture with retropulsion since CT of May 04, 2022. Retropulsion results in mild central canal stenosis at this level. 3. Moderate to severe multilevel degenerative disc disease and facet arthrosis within the lumbar spin e. Suboptimal evaluation of the central canal and neural foramen given CT technique. 4. Anterolisthesis of L4 and L5 and L5 on S1 as well as lumbar spine levoscoliosis, similar to prior exam. ACT 112: Negative or not required by law. Electronically signed by: Mauri Quinn M.D. 04/11/2024 7:30 AM
--- NOTE | 2024-04-11 08:06 | CT Scan Report ---
ABDOMEN AND PELVIS CT WITHOUT CONTRAST HISTORY: Acute urinary tract infection in a patient with history of kidney stones . History of prior ileocecectomy with ileocolic anastomosis. UTI, h/o kidney stones TECHNIQUE: Multiaxial CT images of the abdomen and pelvis were performed without contrast. A dose lo wering technique was utilized adhering to the principles of ALARA. COMPARISON STUDY: CT lumbar spine of same day, CT abdomen and pelvis 05/04/2022 FINDINGS: Limited exam secondary to positioning. Cardiomegaly with coronary artery calcifications. Tr sissy pleural effusions. Large hiatal hernia with intrathoracic stomach. There is dense left lower lobe airspace consolidation with air bronchograms. No pneumatosis or pneumoperitoneum. The unenhanced spleen, pancreas and adrenal glands appear unchanged. Layering hyperdense material wit hin the gallbladder lumen suggestive of cholelithiasis. Unremarkable liver. Numerous nonobstructing c alculi of the right kidney measure up to 4 mm. 2.87 m cyst in the superior pole right kidney. Exophyt ic 6.2 cm cyst of the mid inferior pole left kidney. No definite ureteral calculi or hydronephrosis. Pelvic structures are suboptimally evaluated secondary to streak artifact related to the right hip ar throplasty. Atherosclerosis of the aorta without aneurysm. No lymphadenopathy. Distal esophageal wall thickening. There is no small bowel obstruction. Colonic diverticulosis. There is wall thickening of the mid sig moid with mild adjacent inflammatory stranding. Acute diverticulitis of the mid descending colon imag e 162. No abscess. Prior cholecystectomy with ileocolic anastomosis. Right hip arthroplasty. Cannulat ed screw is again noted extending into the right iliopsoas muscle. Lumbar levoscoliosis. Chronic T12 compression deformity with 4 mm retropulsion. 13 mm peripherally calcified splenic artery aneurysm. IMPRESSION: 1. Acute diverticulitis of the mid descending colon with probable additional acute diverticulitis of the mid sigmoid. 2. No bowel obstruction, pneumoperitoneum or abscess. 3. Partially imaged dense left lower lobe airspace consolidation with air bronchograms, suspicious fo r pneumonia. 4. Trace pleural effusions. 5. Large hiatal hernia. 6. Nonobstructing right nephrolithiasis. No ureteral calculi or hydronephrosis. 7. Additional findings as above. ACT 112: Negative or not required by law. The above report was generated using voice recognition software. It may contain grammatical, syntax o r spelling errors. Electronically signed by: Pierce Esposito M.D. 04/11/2024 8:05 AM
--- NOTE | 2024-04-11 17:02 | Hospitalist Progress Note ---
Date of Service April 11, 2024 Assessment & Plan (1) COVID-19: Plan: Pt has been ill since Sunday/Sunday of last weekend. At high risk of disease progression due to advanced age, dementia, etc. Thus, treating with Remdesivir. LFTs wnl. Creatinine stable. Day #3 of Remdesivir today. Plan up to 5 days in duration. ast/alt wnl today; repeat tomorrow. COVID precautions. Although she has a LLL pneumonia I am deferring on steroids due to her clinical stability, normal O2 sats, her diverticulitis, etc. (2) LLL pneumonia: Plan: as seen on CT a/p today mild cough, no dyspnea no fevers, no leukocytosis if COVID she is on Remdesivir if bacterial she is on abx (3) Acute UTI: Plan: 2nd e.coli s/p rocephin but can transition to PO cefdinir which will also cover the LLL pneumonia & diverticulitis has kidney stones on CT but no obstruction seen (4) Diverticulitis: Plan: mild - descending colon & sigmoid NO SYMPTOMS cont low fiber diet cefdinir + flagyl PO (5) Sinusitis: Plan: as seen on head CT likely all due to COVID can't exclude bacterial sinus infection, however if such her rocephin and now cefdinir will more than adequately cover the sinuses (6) Dementia: Plan: 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 dementia vs vascular parkinsonism per outpatient neurology notes cont Sinemet cont supportive care (7) 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 (11) HTN (hypertension): Plan: not on meds for such (12) Fall: Plan: likely 2nd to UTI, COVID infection, etc in the setting of dementia and RLE issues as documented above PT, OT needs rehab (13) Foot drop, right: Plan: consider orthotics consultation will put her at risk of recurrent falls and ongoing gait issues Plan DVT proph - heparin 5000 BID daughters updated at bedside yesterday Admission and Anticipated Discharge Date Admission Date: April 08, 2024 Subjective no events overnight pt resting in bed comfortably mild cough but denies dyspnea denies chronic reflux/GERD symptoms no abd pain or N/V no stool since admission Review of Systems Review of Systems: gen - no fevers or chills cv - no chest pain pulm - no dyspnea GI - constipated but no pain Physical Exam Physical Exam: gen - lying comfortably in bed, NAD, looks well mouth - MMM neck - no JVD heart - RRR, s1 s2, no murmur lungs - CTA b/l abd - soft NT ND BS+, no HSM ext - no edema, pulses 2+ b/l neuro - foot drop on right, increased tone b/l LEs but much worse on right Results & Data Results & Data Vital Signs (Past 12 Hours) Vital Signs Temp Pulse Resp BP Pulse Ox O2 Del Method 04/11/24 16:58 36.4 C L 81 16 104/63 92 Room Air 04/11/24 07:51 36.5 C 67 18 128/79 97 Room Air 04/11/24 07:40 Room Air Laboratory Results Laboratory Results 04/11/24 05:26 Sodium 140 Potassium 3.7 Chloride 106 Carbon Dioxide 29 Anion Gap 5 BUN 18 Creatinine 0.75 Est Cr Clr Drug Dosing 46.6 eGFR 81.44 BUN/Creatinine Ratio 24.0 H Glucose 93 Calcium 8.3 L AST 17 ALT 4 L Diagnostic Findings Abdomen/Pelvis CT 04/11/24 06:[address] WITHOUT CONTRAST HISTORY: Acute urinary tract infection in a patient with history of kidney stones . History of prior ileocecectomy with ileocolic anastomosis. UTI, h/o kidney stones TECHNIQUE: Multiaxial CT images of the abdomen and pelvis were performed without contrast. A dose lowering technique was utilized adhering to the principles of ALARA. COMPARISON STUDY: CT lumbar spine of same day, CT abdomen and pelvis 05/04/2022 FINDINGS: Limited exam secondary to positioning. Cardiomegaly with coronary artery calcifications. Trace pleural effusions. Large hiatal hernia with intrathoracic stomach. There is dense left lower lobe airspace consolidation with air bronchograms. No pneumatosis or pneumoperitoneum. The unenhanced spleen, pancreas and adrenal glands appear unchanged. Layering hyperdense material within the gallbladder lumen suggestive of cholelithiasis. Unremarkable liver. Numerous nonobstructing calculi of the right kidney measure up to 4 mm. 2.87 m cyst in the superior pole right kidney. Exophytic 6.2 cm cyst of the mid inferior pole left kidney. No definite ureteral calculi or hydronephrosis. Pelvic structures are suboptimally evaluated secondary to streak artifact related to the right hip arthroplasty. Atherosclerosis of the aorta without aneurysm. No lymphadenopathy. Distal esophageal wall thickening. There is no small bowel obstruction. Colonic diverticulosis. There is wall thickening of the mid sigmoid with mild adjacent inflammatory stranding. Acute diverticulitis of the mid descending colon image 162. No abscess. Prior cholecystectomy with ileocolic anastomosis. Right hip arthroplasty. Cannulated screw is again noted extending into the right iliopsoas muscle. Lumbar levoscoliosis. Chronic T12 compression deformity with 4 mm retropulsion. 13 mm peripherally calcified splenic artery aneurysm. IMPRESSION: 1. Acute diverticulitis of the mid descending colon with probable additional acute diverticulitis of the mid sigmoid. 2. No bowel obstruction, pneumoperitoneum or abscess. 3. Partially imaged dense left lower lobe airspace consolidation with air bronchograms, suspicious for pneumonia. 4. Trace pleural effusions. 5. Large hiatal hernia. 6. Nonobstructing right nephrolithiasis. No ureteral calculi or hydronephrosis. 7. Additional findings as above. ACT 112: Negative or not required by law. The above report was generated using voice recognition software. It may contain grammatical, syntax or spelling errors. Electronically signed by: Pierce Esposito M.D. 04/11/2024 8:[address] 04/11/24 07:30 CT OF THE LUMBAR SPINE CLINICAL HISTORY: Right foot drop, increased tone RLE. COMPARISON STUDY: Lumbar spine CT July 29, 2020. TECHNIQUE: Helical axial images of the lumbar spine were obtained. Sagittal and coronal reconstructions were viewed. Automated exposure control was utilized for the study. A dose lowering technique was utilized adhering to the principles of ALARA. FINDINGS: For purposes of numbering on this exam, the L5-S1 disc space is assigned to axial image 282 of 344. There is an old severe T12 compression fracture with 7 mm of retropulsion at the superior endplate which is unchanged since abdominal CT of May 04, 2022. No lumbar spine fractures. Moderate lumbar spine levoscoliosis is noted as well as 6 mm of anterolisthesis of L4 and L5 and 8 mm anterolisthesis of L5 on S1. This is likely due to facet arthrosis. There are no osseous lesions. Please note that the abdomen and pelvis CT will be reported separately. Right renal calculi are better depicted on that exam. Moderate to severe multilevel degenerative disc disease and facet arthrosis is present. Central canal and neural foramen are suboptimally assessed given CT technique. Subtle deformity of the S2 vertebral body is likely chronic. IMPRESSION: 1. No acute lumbar spine fracture or subluxation. 2. No change in appearance of an old T12 compression fracture with retropulsion since CT of May 04, 2022. Retropulsion results in mild central canal stenosis at this level. 3. Moderate to severe multilevel degenerative disc disease and facet arthrosis within the lumbar spine. Suboptimal evaluation of the central canal and neural foramen given CT technique. 4. Anterolisthesis of L4 and L5 and L5 on S1 as well as lumbar spine levoscoliosis, similar to prior exam. ACT 112: Negative or not required by law. Electronically signed by: Mauri Quinn M.D. 04/11/2024 7:30 AM PG Care Time/CCT Total # of Minutes Spent Total Time Spent with Patient: Total time spent is greater than 50% in coordination of care (as documented) at patient's floor/unit and/or counseling patient: Coding Level of Care Code 85166 SUB INP/OBS CARE 3/50MIN Diagnoses COVID-19 U07.1 LLL pneumonia J18.9 Acute UTI N39.0 Diverticulitis K57.92 Sinusitis J32.9 Dementia F03.90 H/O hemicolectomy Z90.49 Urge and stress incontinence N39.46 Gait disturbance R26.9 Esophageal reflux K21.9 HTN (hypertension) I10 Fall, initial encounter W19.XXXA Encounter type: initial encounter Foot drop, right M21.371 (12) Fall Encounter type: initial encounter Qualified Code(s): W19.XXXA - Unspecified fall, initial encounter
[2024-04-11] MEDS: CEFDINIR 300 MG CAP PO SCH (20:18)
[2024-04-12 05:53] LABS: Hematocrit (blood only) 40.7 % (37.0-47.0); Hemoglobin 13.3 g/dl (12.0-16.0); Mean Corpuscular Hemoglobin 30.4 pg (25.0-34.0); Mean Corpuscular Hgb Conc 32.7 g/dL (32.0-36.0); Mean Corpuscular Volume 93.1 fL (80.0-100.0); Mean Platelet Volume 9.9 fL (9.4-12.4); Platelet Count 215 K/uL (130-400); RDW Coefficient of Variation 13.8 % (11.5-14.5); RDW Standard Deviation 46.8 fL (36.4-46.3); Red Blood Count 4.37 M/uL (4.20-5.40); White Blood Count 6.12 K/ul (4.8-10.8)
[2024-04-12 06:13] LABS: BUN Creatinine Ratio 25.8 (10-20); Calcium 8.6 mg/dl (8.6-10.3)
[2024-04-12] MEDS: POLYETHYLENE (MIRALAX) 17 GM PACK PO SCH (09:24)
[2024-04-12] MEDS: metroNIDAZOLE 500 MG TAB PO SCH (09:25)
--- NOTE | 2024-04-12 17:41 | Hospitalist Progress Note ---
Date of Service April 12, 2024 Assessment & Plan (1) COVID-19: Plan: Pt has been ill since Sunday/Sunday of last weekend. At high risk of disease progression due to advanced age, dementia, etc. Thus, treating with Remdesivir. LFTs remain stable. Creatinine stable. Day #4 of Remdesivir today. Stop after tomorrow's dose. Cont COVID precautions. Although she has a LLL pneumonia I am deferring on steroids due to her clinical stability, normal O2 sats, her diverticulitis, etc. (2) LLL pneumonia: Plan: as seen on CT a/p this admission mild cough, no dyspnea no fevers, no leukocytosis if COVID she is on Remdesivir if bacterial she is on abx I am concerned, given the large hiatal hernia, her dementia, her tendency to lean to the left in bed, etc. that she could be aspirating on regular basis starting PPI due to large hiatal hernia will involve speech therapy in her care for swallow eval (3) Acute UTI: Plan: 2nd e.coli s/p rocephin initially, then transitioned to PO cefdinir which will also cover the LLL pneumonia & diverticulitis has kidney stones on CT but no obstruction seen day # 5 of IV/PO abx today (4) Diverticulitis: Plan: mild - descending colon & sigmoid NO SYMPTOMS no diarrhea - having constipation cont low fiber diet cefdinir + flagyl PO (previously was on rocephin IV) day #5 of rocephin/cefdinir day #1 of flagyl (5) Sinusitis: Plan: as seen on head CT likely all due to COVID can't exclude bacterial sinus infection, however if such her rocephin and now cefdinir will more than adequately cover the sinuses (6) Dementia: Plan: 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 dementia vs vascular parkinsonism per outpatient neurology notes cont Sinemet cont supportive care (7) 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 add PPI (11) HTN (hypertension): Plan: not on meds for such (12) Fall: Plan: likely 2nd to UTI, COVID infection, etc in the setting of dementia and RLE issues as documented above PT, OT needs rehab (13) Foot drop, right: Plan: consider orthotics consultation for AFO will put her at risk of recurrent falls and ongoing gait issues Plan DVT proph - heparin 5000 BID Constipation - added miralax once daily; if still no stool by tomorrow then dulcolax suppos updated pt's [facility] Admission and Anticipated Discharge Date Admission Date: April 08, 2024 Subjective no events overnight did not eat as well today as prior just not as hungry despite such denies any abd pain or N/V no stool since admission cough improved minimal at this point denies any new complaints Review of Systems Review of Systems: gen - feeling ok, son walked into the room during my encounter and patient was happy/smiling cv - no chest pain pulm - mild cough, no dyspnea GI - no pain Physical Exam Physical Exam: gen - lying comfortably in bed, NAD, looks well; tends to lean to her left with head/neck flexed mouth - MMM neck - no JVD heart - RRR, s1 s2, no murmur lungs - CTA b/l except L basilar rales abd - soft NT ND BS+, no HSM ext - no edema, pulses 2+ b/l neuro - foot drop on right, increased tone b/l LEs but much worse on right Results & Data Results & Data Vital Signs (Past 12 Hours) Vital Signs Temp Pulse Resp BP Pulse Ox O2 Del Method 04/12/24 15:17 36.6 C 73 16 119/84 95 Room Air 04/12/24 09:52 Room Air 04/12/24 08:40 36.8 C 75 16 128/75 94 Room Air 04/12/24 07:58 36.7 C 63 16 146/84 H 97 Room Air Laboratory Results Laboratory Results - last 24 hr 04/12/24 05:23 WBC 6.12 RBC 4.37 Hgb 13.3 Hct 40.7 MCV 93.1 MCH 30.4 MCHC 32.7 RDW Std Deviation 46.8 H RDW Coeff of Griselda 13.8 Plt Count 215 MPV 9.9 Sodium 140 Potassium 4.0 Chloride 109 H Carbon Dioxide 26 Anion Gap 5 BUN 17 Creatinine 0.66 Est Cr Clr Drug Dosing 53.0 eGFR 89.73 BUN/Creatinine Ratio 25.8 H Glucose 87 Calcium 8.6 AST 23 ALT 5 L PG Care Time/CCT Total # of Minutes Spent Total Time Spent with Patient: Total time spent is greater than 50% in coordination of care (as documented) at patient's floor/unit and/or counseling patient: Coding Level of Care Code 32909 SUB INP/OBS CARE 235MIN Diagnoses COVID-19 U07.1 LLL pneumonia J18.9 Acute UTI N39.0 Diverticulitis K57.92 Sinusitis J32.9 Dementia F03.90 H/O hemicolectomy Z90.49 Urge and stress incontinence N39.46 Gait disturbance R26.9 Esophageal reflux K21.9 HTN (hypertension) I10 Fall, initial encounter W19.XXXA Encounter type: initial encounter Foot drop, right M21.371 (12) Fall Encounter type: initial encounter Qualified Code(s): W19.XXXA - Unspecified fall, initial encounter
[2024-04-13] MEDS: PANTOprazole 40 MG TAB PO SCH (08:06)
[2024-04-13] MEDS: bisacodyL 10 MG SUPP PR STA (09:08)
--- NOTE | 2024-04-13 18:34 | Hospitalist Progress Note ---
Date of Service April 13, 2024 Assessment & Plan (1) COVID-19: Plan: Although not identified at time of ER Presentation she had been sick with COVID symptoms since Sunday/Sunday of last weekend. Thus, COVID was present on admission. At high risk of disease progression due to advanced age, dementia, etc. Thus, treated with Remdesivir. Day #5 today - will stop after today's dose. LFTs remain stable. Creatinine stable. Cont COVID precautions per IC office guidelines. Although she has a LLL pneumonia I am deferring on steroids due to her clinical stability, normal O2 sats, her diverticulitis, etc. (2) LLL pneumonia: Plan: as seen on CT a/p this admission mild cough, no dyspnea no fevers, no leukocytosis if COVID she has received Remdesivir if bacterial she is on abx I am concerned, given the large hiatal hernia, her dementia, her tendency to lean to the left in bed, etc. that she could be aspirating on regular basis starting PPI due to large hiatal hernia speech therapy did perform swallow eval -- no dysphagia or aspiration seen (3) Acute UTI: Plan: 2nd e.coli s/p rocephin initially, then transitioned to PO cefdinir which will also cover the LLL pneumonia & diverticulitis has kidney stones on CT but no obstruction seen day # 6 of IV/PO abx today (4) Diverticulitis: Plan: not present on admission mild - descending colon & sigmoid NO SYMPTOMS no diarrhea - having constipation cont low fiber diet cefdinir + flagyl PO (previously was on rocephin IV) day #6 of rocephin/cefdinir day #2 of flagyl (5) Sinusitis: Plan: as seen on head CT likely all due to COVID can't exclude bacterial sinus infection, however if such her rocephin and now cefdinir will more than adequately cover the sinuses (6) Dementia: Plan: 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 cont once daily PPI (11) HTN (hypertension): Plan: not on meds for such (12) Fall: Plan: likely 2nd to UTI, COVID infection, etc in the setting of dementia and RLE issues as documented above PT, OT needs rehab (13) Foot drop, right: Plan: consider orthotics consultation for AFO will put her at risk of recurrent falls and ongoing gait issues Plan DVT proph - heparin 5000 BID Constipation - improved s/p dulcolax suppos today; cont miralax for maintenance updated pt's daughter by telephone yesterday and her other daughter briefly today in [facility] post-discharge Admission and Anticipated Discharge Date Admission Date: April 08, 2024 Subjective patient w/o any complaints today did have a bowel movement - moderate, brown, formed - per staff denies dyspnea denies pain any location asks when she is going home Review of Systems Review of Systems: CV - no chest pain pulm - no dyspnea GI - no pain, nausea or emesis; no pain with eating food Physical Exam Physical Exam: gen - lying comfortably in bed, NAD, looks well; leans to her left with head/neck flexed mouth - MMM neck - no JVD heart - RRR, s1 s2, no murmur lungs - CTA b/l except L basilar rales - no change abd - soft NT ND BS+, no HSM ext - no edema, pulses 2+ b/l neuro - foot drop on right, increased tone b/l LEs -- RLE>LLE Results & Data Results & Data Vital Signs (Past 12 Hours) Vital Signs Temp Pulse Resp BP Pulse Ox O2 Del Method 04/13/24 14:22 36.8 C 73 16 106/61 96 Room Air 04/13/24 07:47 36.9 C 68 16 128/64 97 Room Air 04/13/24 07:30 Room Air PG Care Time/CCT Total # of Minutes Spent Total Time Spent with Patient: Total time spent is greater than 50% in coordination of care (as documented) at patient's floor/unit and/or counseling patient: Coding Level of Care Code 84489 SUB INP/OBS CARE MIN Diagnoses COVID-19 U07.1 LLL pneumonia J18.9 Acute UTI N39.0 Diverticulitis K57.92 Sinusitis J32.9 Dementia F03.90 H/O hemicolectomy Z90.49 Urge and stress incontinence N39.46 Gait disturbance R26.9 Esophageal reflux K21.9 HTN (hypertension) I10 Fall, initial encounter W19.XXXA Encounter type: initial encounter Foot drop, right M21.371 (12) Fall Encounter type: initial encounter Qualified Code(s): W19.XXXA - Unspecified fall, initial encounter
[2024-04-14] MEDS: CALCIUM CARBONATE 500 MG CHEWABLE TAB PO PRN (15:41)
[2024-04-14] MEDS: SUCRALFATE 1 GM/10 ML UDC PO SCH (17:05)
--- NOTE | 2024-04-14 20:03 | Hospitalist Progress Note ---
Date of Service April 14, 2024 Assessment & Plan (1) COVID-19: Plan: Although not identified at time of ER Presentation she had been sick with COVID symptoms since Sunday/Sunday of last weekend. Thus, COVID was present on admission. Completed 5 day course of Remdesivir. All labs and LFTs have remained stable while here. COVID clinically resolved. Cont COVID precautions per IC office guidelines. Although she has a LLL pneumonia steroids deferred due to her clinical stability, normal O2 sats, her diverticulitis, etc. (2) LLL pneumonia: Plan: as seen on CT a/p this admission if COVID pneumonia she received full 5-day course of Remdesivir if bacterial she has been receiving abx I am concerned, given the large hiatal hernia, her dementia, her tendency to lean to the left in bed, etc. that she could be aspirating on regular basis starting PPI due to large hiatal hernia speech therapy did perform swallow eval -- no dysphagia or aspiration seen (3) Acute UTI: Plan: 2nd e.coli s/p rocephin initially, then transitioned to PO cefdinir which will also cover the LLL pneumonia & diverticulitis has kidney stones on CT but no obstruction seen day # 7 of IV/PO abx today stop cefdinir after today's doses (4) Diverticulitis: Plan: not present on admission mild - descending colon & sigmoid NO SYMPTOMS cont low fiber diet cefdinir + flagyl PO (previously was on rocephin IV) day #7 of rocephin/cefdinir day #3 of flagyl (stop after 7 days) (5) Sinusitis: Plan: as seen on head CT likely all due to COVID can't exclude bacterial sinus infection, however (but rocephin/cefdinir would have covered) (6) Dementia: Plan: 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 dementia vs vascular parkinsonism per outpatient neurology notes cont Sinemet cont supportive care (7) 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 cont once daily PPI (11) HTN (hypertension): Plan: not on meds for such (12) Fall: Plan: likely 2nd to UTI, COVID infection, etc in the setting of dementia and RLE issues as documented above PT, OT needs rehab would she benefit from AFO for right foot? will ask physical therapy not sure if it would help because the tone is increased significantly throughout the leg/foot (13) Foot drop, right: Plan: will put her at risk of recurrent falls and ongoing gait issues see #12 Plan DVT proph - heparin 5000 BID Constipation - improved s/p dulcolax suppos; cont miralax for maintenance updated pt's daughter at bedside today dispo - SNF at discharge ; [facility]'t have bed until next week -- thus, case sealer placed other SNF referrals Admission and Anticipated Discharge Date Admission Date: April 08, 2024 Subjective patient sitting in chair finishing her meal daughter at bedside no new issues or complaints feeling good daughter is very happy with how her mother is doing minimal cough Review of Systems Review of Systems: CV - no chest pain pulm - no dyspnea; minimal cough GI - no abd pain or N/V Physical Exam Physical Exam: gen - sitting in chair; NAD, looks well; leans to her left with head/neck flexed mouth - MMM neck - no JVD heart - RRR, s1 s2, no murmur lungs - CTA b/l except L basilar rales - no change abd - soft NT ND BS+, no HSM ext - no edema, pulses 2+ b/l neuro - foot drop on right Results & Data Results & Data Vital Signs (Past 12 Hours) Vital Signs Temp Pulse Resp BP Pulse Ox O2 Del Method 04/14/24 14:00 37.1 C 82 18 104/72 95 Room Air 04/14/24 12:24 36.5 C 77 18 91/63 L 95 Room Air PG Care Time/CCT Total # of Minutes Spent Total Time Spent with Patient: Total time spent is greater than 50% in coordination of care (as documented) at patient's floor/unit and/or counseling patient: Coding Level of Care Code 73281 SUB INP/OBS CARE 2/35MIN Diagnoses COVID-19 U07.1 LLL pneumonia J18.9 Acute UTI N39.0 Diverticulitis K57.92 Sinusitis J32.9 Dementia F03.90 H/O hemicolectomy Z90.49 Urge and stress incontinence N39.46 Gait disturbance R26.9 Esophageal reflux K21.9 HTN (hypertension) I10 Fall, initial encounter W19.XXXA Encounter type: initial encounter Foot drop, right M21.371 (12) Fall Encounter type: initial encounter Qualified Code(s): W19.XXXA - Unspecified fall, initial encounter
--- NOTE | 2024-04-15 14:17 | Hospitalist Progress Note ---
Date of Service April 15, 2024 Assessment & Plan (1) COVID-19: Plan: Although not identified at time of ER Presentation she had been sick with COVID symptoms since Sunday/Sunday of last weekend. Thus, COVID was present on admission. Completed 5 day course of Remdesivir. Not treated with steroids, was not hypoxic All labs and LFTs have remained stable while here. COVID clinically resolved. (2) LLL pneumonia: Plan: as seen on CT a/p this admission if COVID pneumonia she received full 5-day course of Remdesivir if bacterial she has been receiving abx started PPI due to large hiatal hernia speech therapy did perform swallow eval -- no dysphagia or aspiration seen (3) Acute UTI: Plan: 2nd e.coli s/p rocephin initially, then transitioned to PO cefdinir (which will also cover the LLL pneumonia & diverticulitis) completed 7 days course has kidney stones on CT but no obstruction seen (4) Diverticulitis: Plan: not present on admission mild - descending colon & sigmoid NO SYMPTOMS cont low fiber diet ceftriaxone/cefdinir (completed) + flagyl PO day 4/ (5) Sinusitis: Plan: as seen on head CT likely all due to COVID can't exclude bacterial sinus infection, however (but rocephin/cefdinir would have covered) (6) Dementia: Plan: 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 dementia vs vascular parkinsonism per outpatient neurology notes cont Sinemet cont supportive care (7) 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 (8) Urge and stress incontinence: Plan: big risk factor for UTI incontinence likely 2nd to dementia process (9) Gait disturbance: Plan: 2nd to #4 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 will ask physical therapy not sure if it would help because the tone is increased significantly throughout the leg/foot (13) Foot drop, right: Plan: will put her at risk of recurrent falls and ongoing gait issues see #12 Plan DVT proph - heparin 5000 BID Constipation - improved s/p dulcolax suppos; cont miralax for maintenance updated pt's daughter at bedside 04/14 dispo - medically ready for SNF discharge awaiting bed availability Admission and Anticipated Discharge Date Admission Date: April 08, 2024 Subjective Doing well, cough nearly resolved, no abdominal pain N/V/D, eating well Wishes her would visit but he also has COVID Physical Exam 2 Physical Exam: PHYSICAL EXAMINATION Last 24h vital signs reviewed, see documentation in flowsheet General: comfortable appearing, no distress, sitting up in chair awaiting lunch HEENT: Normocephalic, atraumatic, pupils round and equal, sclerae anicteric, no conjunctival injection, moist mucus membranes Lungs: Normal respiratory effort. Clear to auscultation bilaterally. No RRW Heart: Regular rate and rhythm, no murmurs. No JVD Abdomen: Soft, nontender, nondistended. Bowel sounds present. Extremities: Warm, dry, well-perfused. No extremity edema. Neuro: Alert and oriented x self, hospital, basic situation, face symmetric, moves 4 extremities well Psych: Normal affect and behavior Results & Data Results & Data Vital Signs (Past 12 Hours) Vital Signs Temp Pulse Resp BP Pulse Ox O2 Del Method 04/15/24 12:59 36.5 C 86 16 96/66 L 96 Room Air 04/15/24 07:45 Room Air 04/15/24 07:40 36.8 C 75 16 125/77 97 Room Air Laboratory Results 04/12/24 05:23 04/12/24 05:23 PG Care Time/CCT Total # of Minutes Spent Total Time Spent with Patient: Total time spent is greater than 50% in coordination of care (as documented) at patient's floor/unit and/or counseling patient: Coding Level of Care Code 88112 SUB INP/OBS CARE 07/26MIN Diagnoses COVID-19 U07.1 LLL pneumonia J18.9 Acute UTI N39.0 Diverticulitis K57.92 Sinusitis J32.9 Dementia F03.90 H/O hemicolectomy Z90.49 Urge and stress incontinence N39.46 Gait disturbance R26.9 Esophageal reflux K21.9 HTN (hypertension) I10 Fall, initial encounter W19.XXXA Encounter type: initial encounter Foot drop, right M21.371 (12) Fall Encounter type: initial encounter Qualified Code(s): W19.XXXA - Unspecified fall, initial encounter
[2024-04-16 09:01] LABS: Hematocrit (blood only) 43.2 % (37.0-47.0); Hemoglobin 13.8 g/dl (12.0-16.0); Mean Corpuscular Hemoglobin 30.3 pg (25.0-34.0); Mean Corpuscular Hgb Conc 31.9 g/dL (32.0-36.0); Mean Corpuscular Volume 94.7 fL (80.0-100.0); Mean Platelet Volume 10.2 fL (9.4-12.4); Platelet Count 219 K/uL (130-400); RDW Coefficient of Variation 14.8 % (11.5-14.5); RDW Standard Deviation 49.5 fL (36.4-46.3); Red Blood Count 4.56 M/uL (4.20-5.40); White Blood Count 7.39 K/ul (4.8-10.8)
[2024-04-16 09:16] LABS: BUN Creatinine Ratio 23.2 (10-20); Creatinine Clr Calc Pharmacy 42.7 ml/min; Potassium 3.9 mmol/L (3.5-5.1)
--- NOTE | 2024-04-16 14:22 | Hospitalist Progress Note ---
Date of Service April 16, 2024 Assessment & Plan (1) COVID-19: Plan: Although not identified at time of ER Presentation she had been sick with COVID symptoms since Sunday/Sunday of last weekend. Thus, COVID was present on admission. Completed 5 day course of Remdesivir. Not treated with steroids, was not hypoxic All labs and LFTs have remained stable while here. COVID clinically resolved. (2) LLL pneumonia: Plan: as seen on CT a/p this admission if COVID pneumonia she received full 5-day course of Remdesivir if bacterial she has completed course of cefdinir clinically resolved started PPI due to large hiatal hernia speech therapy did perform swallow eval -- no dysphagia or aspiration seen (3) Acute UTI: Plan: 2nd e.coli s/p rocephin initially, then transitioned to PO cefdinir (which will also cover the LLL pneumonia & diverticulitis) completed 7 days course has kidney stones on CT but no obstruction seen (4) Diverticulitis: Plan: not present on admission mild - descending colon & sigmoid NO SYMPTOMS cont low fiber diet ceftriaxone/cefdinir (completed) + flagyl PO day 5/ (5) Sinusitis: Plan: as seen on head CT likely all due to COVID can't exclude bacterial sinus infection (but rocephin/cefdinir would have covered) (6) Dementia: Plan: 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 dementia vs vascular parkinsonism per outpatient neurology notes cont Sinemet cont supportive care (7) 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 (8) Urge and stress incontinence: Plan: big risk factor for UTI incontinence likely 2nd to dementia process (9) Gait disturbance: Plan: 2nd to #4 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 will benefit from working on improving ROM PT, OT needs rehab (13) Foot drop, right: Plan: will put her at risk of recurrent falls and ongoing gait issues see #12 Plan Low urine output - obtained BMP, BUN/Cr a little more elevated than previously but still normal range Cr 0.8. BUN/Cr chronically elevated suspect she chronically hydrates poorly. -encourage better oral hydration DVT proph - heparin 5000 BID Constipation - improved s/p dulcolax suppos; cont miralax for maintenance updated pt's daughter at bedside 04/14 dispo - medically ready for SNF discharge awaiting bed availability Admission and Anticipated Discharge Date Admission Date: April 08, 2024 Subjective low urine output noted, digna urine improved pure wick. Blood pressure normal and labs okay RN notes she does not drink very much liquid. Encouraged oral hydration. No coughing chest pain dyspnea abdominal pain nausea or vomiting Physical Exam 2 Physical Exam: PHYSICAL EXAMINATION Last 24h vital signs reviewed, see documentation in flowsheet General: sitting up in bed awake and alert HEENT: Normocephalic, atraumatic, pupils round and equal, sclerae anicteric, no conjunctival injection, moist mucus membranes Lungs: Normal respiratory effort. Clear to auscultation bilaterally. No RRW Heart: Regular rate and rhythm, no murmurs. No JVD Abdomen: Soft, nontender, nondistended. Bowel sounds present. dark digna urine in purewick Extremities: Warm, dry, well-perfused. No extremity edema. Neuro: Alert and oriented x self, hospital, basic situation, face symmetric, moves 4 extremities well Psych: Normal affect and behavior Results & Data Results & Data Vital Signs (Past 12 Hours) Vital Signs Temp Pulse Resp BP Pulse Ox O2 Del Method 04/16/24 14:05 36.6 C 87 18 110/72 96 Room Air 04/16/24 08:02 36.6 C 85 16 93/60 L 97 Room Air 04/16/24 08:00 Room Air 04/16/24 05:41 36.7 C 69 16 126/79 96 Room Air Laboratory Results 04/16/24 08:41 04/16/24 08:41 PG Care Time/CCT Total # of Minutes Spent Total Time Spent with Patient: Total time spent is greater than 50% in coordination of care (as documented) at patient's floor/unit and/or counseling patient: Coding Level of Care Code 88935 SUB INP/OBS CARE MIN Diagnoses COVID-19 U07.1 LLL pneumonia J18.9 Acute UTI N39.0 Diverticulitis K57.92 Sinusitis J32.9 Dementia F03.90 H/O hemicolectomy Z90.49 Urge and stress incontinence N39.46 Gait disturbance R26.9 Esophageal reflux K21.9 HTN (hypertension) I10 Fall, initial encounter W19.XXXA Encounter type: initial encounter Foot drop, right M21.371 (12) Fall Encounter type: initial encounter Qualified Code(s): W19.XXXA - Unspecified fall, initial encounter
--- NOTE | 2024-04-17 16:22 | Hospitalist Progress Note ---
Date of Service April 17, 2024 Assessment & Plan (1) COVID-19: Plan: Although not identified at time of ER Presentation she had been sick with COVID symptoms since Sunday/Sunday of last weekend. Thus, COVID was present on admission. Completed 5 day course of Remdesivir. Not treated with steroids, was not hypoxic COVID clinically resolved. (2) LLL pneumonia: Plan: as seen on CT a/p this admission if COVID pneumonia she received full 5-day course of Remdesivir if bacterial she has completed course of cefdinir clinically resolved started PPI due to large hiatal hernia speech therapy did perform swallow eval -- no dysphagia or aspiration seen (3) Acute UTI: Plan: 2nd e.coli s/p rocephin initially, then transitioned to PO cefdinir (which will also cover the LLL pneumonia & diverticulitis) completed 7 days course has kidney stones on CT but no obstruction seen (4) Diverticulitis: Plan: not present on admission mild - descending colon & sigmoid NO SYMPTOMS cont low fiber diet ceftriaxone/cefdinir (completed) + flagyl PO day 6 - will stop metronidazole now in case this is affecting her oral intake (5) Sinusitis: Plan: as seen on head CT likely all due to COVID can't exclude bacterial sinus infection (but rocephin/cefdinir would have covered) (6) Dementia: Plan: 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 dementia vs vascular parkinsonism per outpatient neurology notes cont Sinemet cont supportive care (7) 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 (8) Urge and stress incontinence: Plan: big risk factor for UTI incontinence likely 2nd to dementia process (9) Gait disturbance: Plan: 2nd to #4 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 will benefit from working on improving ROM PT, OT needs rehab (13) Foot drop, right: Plan: will put her at risk of recurrent falls and ongoing gait issues see #12 Plan Low urine output - persists, orally hydrates poorly. -encourage better oral hydration -AM BMP ordered, stopped metronidazole DVT proph - heparin 5000 BID Constipation - improved s/p dulcolax suppos; cont miralax for maintenance updated pt's daughter at bedside 04/14 dispo - medically ready for SNF discharge awaiting bed availability Admission and Anticipated Discharge Date Admission Date: April 08, 2024 Subjective no cough no dyspnea continues to have low UOP does not drink a lot of fluids Physical Exam Physical Exam: PHYSICAL EXAMINATION Last 24h vital signs reviewed, see documentation in flowsheet Exam unchanged: General: sitting up in bed awake and alert HEENT: Normocephalic, atraumatic, pupils round and equal, sclerae anicteric, no conjunctival injection, moist mucus membranes Lungs: Normal respiratory effort. Clear to auscultation bilaterally. No RRW Heart: Regular rate and rhythm, no murmurs. No JVD Abdomen: Soft, nontender, nondistended. Bowel sounds present. dark digna urine in purewick Extremities: Warm, dry, well-perfused. No extremity edema. Neuro: Alert and oriented x self, hospital, basic situation, face symmetric, moves 4 extremities well Psych: Normal affect and behavior Results & Data Results & Data Vital Signs (Past 12 Hours) Vital Signs Temp Pulse Resp BP Pulse Ox O2 Del Method 04/17/24 14:07 36.7 C 84 16 104/67 95 Room Air 04/17/24 07:49 36.5 C 82 18 116/73 96 Room Air PG Care Time/CCT Total # of Minutes Spent Total Time Spent with Patient: Total time spent is greater than 50% in coordination of care (as documented) at patient's floor/unit and/or counseling patient: Coding Level of Care Code 85107 SUB INP/OBS CARE 2/35MIN Diagnoses COVID-19 U07.1 LLL pneumonia J18.9 Acute UTI N39.0 Diverticulitis K57.92 Sinusitis J32.9 Dementia F03.90 H/O hemicolectomy Z90.49 Urge and stress incontinence N39.46 Gait disturbance R26.9 Esophageal reflux K21.9 HTN (hypertension) I10 Fall, initial encounter W19.XXXA Encounter type: initial encounter Foot drop, right M21.371 (12) Fall Encounter type: initial encounter Qualified Code(s): W19.XXXA - Unspecified fall, initial encounter
[2024-04-18 07:33] LABS: BUN Creatinine Ratio 23.1 (10-20); Creatinine Clr Calc Pharmacy 53.8 ml/min
--- NOTE | 2024-04-18 15:12 | Hospitalist Progress Note ---
Date of Service April 18, 2024 Assessment & Plan (1) COVID-19: Plan: Although not identified at time of ER Presentation she had been sick with COVID symptoms since Sunday/Sunday of last weekend. Thus, COVID was present on admission. Completed 5 day course of Remdesivir. Not treated with steroids, was not hypoxic COVID clinically resolved. (2) LLL pneumonia: Plan: as seen on CT a/p this admission if COVID pneumonia she received full 5-day course of Remdesivir if bacterial she has completed course of cefdinir clinically resolved started PPI due to large hiatal hernia speech therapy did perform swallow eval -- no dysphagia or aspiration seen (3) Acute UTI: Plan: 2nd e.coli s/p rocephin initially, then transitioned to PO cefdinir (which will also cover the LLL pneumonia & diverticulitis) completed 7 days course has kidney stones on CT but no obstruction seen (4) Diverticulitis: Plan: not present on admission mild - descending colon & sigmoid. 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 will benefit from working on improving ROM continue PT and OT Plan Low urine output - persists, orally hydrates poorly. suspect this is her baseline -encourage better oral hydration - BMP reviewed today electrolytes and BUN/creatinine remain normal history of hemicolectomy for cecal cancer continue PPI for large hiatal hernia DVT proph - heparin 5000 BID dispo - medically ready for SNF discharge awaiting bed availability Admission and Anticipated Discharge Date Admission Date: April 08, 2024 Subjective doing okay no shortness of breath coughing seems less, is weak was only able to stand with PT not walk Physical Exam 2 Physical Exam: PHYSICAL EXAMINATION Last 24h vital signs reviewed, see documentation in flowsheet unchanged exam 04/18 General: sitting in the chair today HEENT: Normocephalic, atraumatic, pupils round and equal, sclerae anicteric, no conjunctival injection, moist mucus membranes Lungs: Normal respiratory effort. Clear to auscultation bilaterally. No RRW Heart: Regular rate and rhythm, no murmurs. No JVD Abdomen: Soft, nontender, nondistended. Bowel sounds present. Extremities: Warm, dry, well-perfused. No extremity edema. Neuro: Alert and oriented x self, hospital, basic situation, face symmetric, moves 4 extremities well Psych: Normal affect and behavior Results & Data Results & Data Vital Signs (Past 12 Hours) Vital Signs Temp Pulse Resp BP Pulse Ox O2 Del Method 04/18/24 13:58 36.6 C 87 18 109/74 96 Room Air 04/18/24 07:12 36.7 C 76 16 133/80 96 Room Air Laboratory Results 04/16/24 08:41 04/18/24 05:39 PG Care Time/CCT Total # of Minutes Spent Total Time Spent with Patient: Total time spent is greater than 50% in coordination of care (as documented) at patient's floor/unit and/or counseling patient: Coding Level of Care Code 39012 SUB INP/OBS CARE 2/35MIN Diagnoses COVID-19 U07.1 LLL pneumonia J18.9 Acute UTI N39.0 Diverticulitis K57.92 Dementia F03.90 Fall, initial encounter W19.XXXA Encounter type: initial encounter (6) Fall Encounter type: initial encounter Qualified Code(s): W19.XXXA - Unspecified fall, initial encounter
--- NOTE | 2024-04-19 13:01 | Hospitalist Progress Note ---
Date of Service April 19, 2024 Assessment & Plan (1) COVID-19: Plan: Although not identified at time of ER Presentation she had been sick with COVID symptoms since Sunday/Sunday of last weekend. Thus, COVID was present on admission. Completed 5 day course of Remdesivir. Not treated with steroids, was not hypoxic no longer on isolation precautions COVID resolved. (2) LLL pneumonia: Plan: as seen on CT a/p this admission if COVID pneumonia she received full 5-day course of Remdesivir if bacterial she has completed course of cefdinir clinically resolved started PPI due to large hiatal hernia speech therapy did perform swallow eval -- no dysphagia or aspiration seen (3) Acute UTI: Plan: 2nd e.coli s/p rocephin initially, then transitioned to PO cefdinir (which will also cover the LLL pneumonia & diverticulitis) completed 7 days course has kidney stones on CT but no obstruction seen (4) Diverticulitis: Plan: not present on admission mild - descending colon & sigmoid. 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 will benefit from working on improving ROM continue PT and OT Plan Low urine output - persists, orally hydrates poorly. suspect this is her baseline -encourage better oral hydration - electrolytes and BUN/creatinine have remained stable on serial BMP history of hemicolectomy for cecal cancer continue PPI for large hiatal hernia DVT proph - heparin 5000 BID dispo - medically ready for SNF discharge planned for tomorrow Admission and Anticipated Discharge Date Admission Date: April 08, 2024 Subjective she notes that we stopped all her IVs and sticks she refused her subcu heparin this morning she remains intermittently confused but knows she is planned for discharge to [facility] tomorrow no further cough no shortness of breath Physical Exam Physical Exam: PHYSICAL EXAMINATION Last 24h vital signs reviewed, see documentation in flowsheet General: sitting up in bed drinking MiraLAX with cranberry juice HEENT: Normocephalic, atraumatic, pupils round and equal, sclerae anicteric, no conjunctival injection, moist mucus membranes Lungs: Normal respiratory effort. Clear to auscultation bilaterally. No RRW Heart: Regular rate and rhythm, no murmurs. No JVD Abdomen: Soft, nontender, nondistended. Bowel sounds present. Extremities: Warm, dry, well-perfused. No extremity edema. Neuro: Alert and oriented x self, hospital, basic situation, intermittent confusion, face symmetric, moves 4 extremities well Psych: Normal affect and behavior Results & Data Results & Data Vital Signs (Past 12 Hours) Vital Signs Temp Pulse Resp BP Pulse Ox O2 Del Method 04/19/24 07:03 36.5 C 77 18 138/63 96 Room Air PG Care Time/CCT Total # of Minutes Spent Total Time Spent with Patient: Total time spent is greater than 50% in coordination of care (as documented) at patient's floor/unit and/or counseling patient: Coding Level of Care Code 93010 SUB INP/OBS CARE 07/26MIN Diagnoses COVID-19 U07.1 LLL pneumonia J18.9 Acute UTI N39.0 Diverticulitis K57.92 Dementia F03.90 Fall, initial encounter W19.XXXA Encounter type: initial encounter (6) Fall Encounter type: initial encounter Qualified Code(s): W19.XXXA - Unspecified fall, initial encounter
[2024-04-19 21:07] VITALS: O2SAT 96
[2024-04-20 08:36] VITALS: BP 105/70; PULSE 92; RESP 18; TEMP 97.9
--- NOTE | 2024-04-20 09:10 | Discharge Summary ---
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 She completed a course of antibiotics finished out cefdinir and metronidazole for 7-day course. The COVID was treated with remdesivir for 5 days she did not require steroids because she was not hypoxic. All of these acute issues have resolved she has been stable for many days and completely off of antibiotics for several days at this point while awaiting placement. Although not identified at time of ER Presentation she had been sick with COVID symptoms since Sunday/Sunday of weekend prior to admission. Thus, COVID was present on admission. Completed 5 day course of Remdesivir. Not treated with steroids, was not hypoxic no longer on isolation precautions COVID resolved. (2) LLL pneumonia: as seen on CT a/p this admission if COVID pneumonia she received full 5-day course of Remdesivir if bacterial she has completed course of cefdinir clinically resolved started PPI due to large hiatal hernia speech therapy did perform swallow eval -- no dysphagia or aspiration seen (3) Acute UTI: 2nd e.coli s/p rocephin initially, then transitioned to PO cefdinir (which will also cover the LLL pneumonia & diverticulitis) completed 7 days course has kidney stones on CT but no obstruction seen (4) Diverticulitis: not present on admission mild - descending colon & sigmoid. 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 will benefit from working on improving ROM continue PT and OT CT of spine showed an old T12 compression fracture with mild spinal stenosis at that level, degenerative disease continue her regimen for osteoporosis Plan seems to have a baseline low urine output and poor oral hydration suspect this is chronic -encourage better oral hydration - electrolytes and BUN/creatinine have remained stable on serial BMP hypokalemia daily potassium replacement was started, stable on this for about 10 days history of hemicolectomy for cecal cancer continue PPI for large hiatal hernia Admission HPI Per Admitting Provider The patient is a 79-year-old female with a past medical history including parkinsonism, hypertension, adenocarcinoma of the cecum, dementia, ambulatory dysfunction requiring a walker, urge and stress urinary incontinence, GERD, anxiety, history of Enterococcus faecalis and E. coli UTIs, and hypercholesterolemia. Patient presents to the emergency department with family, with family concerns regarding worsening ability to ambulate and progressive fatigue and generalized weakness, especially over the past 3 days. Discharge Exam PHYSICAL EXAMINATION Last 24h vital signs reviewed, see documentation in flowsheet General: sleeping sitting up but aroused easily to voice exam unchanged 04/20: HEENT: Normocephalic, atraumatic, pupils round and equal, sclerae anicteric, no conjunctival injection, moist mucus membranes Lungs: Normal respiratory effort. Clear to auscultation bilaterally. No RRW Heart: Regular rate and rhythm, no murmurs. No JVD Abdomen: Soft, nontender, nondistended. Bowel sounds present. Extremities: Warm, dry, well-perfused. No extremity edema. Neuro: Alert and oriented x self, hospital, basic situation, intermittent confusion, face symmetric, moves 4 extremities well Psych: Normal affect and behavior Discharge Plan Discharge Items Patient Disposition: Transfer Nursing Home Fac Reason For Visit: UTI, AMB DYSF, WEAKNESS, DEHYDRATION, HYPOKALEMIA Discharge Diagnosis: COVID-19, LLL pneumonia, UTI, acute diverticulitis - all have resolved Activity: Resume your previous activity Weightbearing: Full weightbearing Non-emergency contact: Primary Care Provider Call non-emergency contact if: you have any medication questions, your symptoms worsen and you have a fever Follow-up/Referrals: Sahra Terrell CRNP [Primary Care Provider] - Diet: Regular Addtl Attending Provider Instructions: PT and OT evaluate and treat Needs encouragement for oral hydration Pending Studies at Discharge: No Stand-Alone Forms: My [facility] Skilled Items Patient informed of condition?: Yes DNR: Yes Discharge Level of Care: Skilled Communicable Disease: No Discharge Prognosis: Improving Lines: None Urinary Catheter: No Medications and DC Order Prescriptions: New calcium carbonate [Tums] 200 mg calcium (500 mg) Tablet,Chewable 500 mg PO Q4H PRNQty: 0 0RF potassium chloride 10 mEq Tablet,Er Particles/Crystals 10 meq PO DAILY Qty: 0 0RF polyethylene glycol 3350 [Miralax] 17 gram Powder In Packet 17 g PO DAILY Qty: 0 0RF pantoprazole 40 mg Tablet,Delayed Release (Dr/Ec) 40 mg PO QAM Qty: 0 0RF Continued carbidopa-levodopa 25-100 mg tablet 1.5 tab PO TID Qty: 135 5RF atorvastatin 10 mg tablet 10 mg PO HS Qty: 90 3RF Myrbetriq 25 mg tablet extended release 24 hr 25 mg PO QAM Qty: 90 3RF Patient Comments: TAKES QAM (DME) Manual Wheelchair Device See Rx Instructions .Route Qty: 1 0RF Rx Instructions: As directed coenzyme Q10 [Co Q-10] 30 mg capsule 30 mg PO HS multivitamin [Multiple Vitamins] tablet 1 tab PO QAM vitamin B complex tablet 1 tab PO QAM ascorbic acid (vitamin C) 500 mg tablet 500 mg PO QAM cholecalciferol (vitamin D3) 2,000 unit capsule 2,000 units PO QAM aspirin 81 mg Tablet,Delayed Release (Dr/Ec) 81 mg PO QAM ibandronate 150 mg Tablet 150 mg PO MONTHLY Rx Instructions: 150 mg PO once monthly with 8-10oz of water. stay upright. do not eat or drink for 1 hour ; Discharge Orders: Discharge Order (Routine); Ordered 04/20/24 Ordered By: Peyton Oakley/Other Patient Handouts: Low-Fiber Diet, Diverticulosis and Diverticulitis Admission Data Admit Date/Time: 04/08/24 20:15 Attending Provider: Petyon Benavides Admit Provider: Darrell Contreras Primary Care Provider: Sahra Terrell Other Providers: Darrell Contreras; [facility]; Hector Cool [facility] [place] Other Interventions: Discharge Summary Assessment (RN) Last Done: 04/20/24 09:33 Hospital Stay Data Consultations 04/08/24 18:56 ED Decision to Admit Stat Diagnostic Imagining Performed 10/08/24 16:11 CT head/brain wo con Stat 04/11/24 06:01 CT abd pelvis wo con Routine 04/11/24 07:30 CT lumbar spine wo con Routine Pending Results Patient Have Any Pending Studies at Discharge: No Discharge Instructions Given to Patient (Per Discharging Provider) PT and OT evaluate and treat Needs encouragement for oral hydration Total Time Total Time Spent Total Time Spent (In Minutes): I personally spent: 35 minutes today on clinical care activities including: reviewing chart notes and vital signs discussion with transitional care nurse examining and counseling the patient writing orders writing prescriptions, discharge instructions documentation Coding Level of Care Code 28237 INP/OBS DISCH >30 MIN Diagnoses COVID-19 U07.1 LLL pneumonia J18.9 Acute UTI N39.0 Diverticulitis K57.92 Dementia F03.90 Fall, initial encounter W19.XXXA Encounter type: initial encounter
== END 2024-04-20 10:47 | DRG 177 ==
LOC: ED 15:44 → SUATTDRO 20:15 → 3N 20:25 → 3E 04-09 21:13